=== PATIENT | male | born 1940 | race Caucasian/White ===

== ENCOUNTER 2017-09-07 13:32 | Emergency (ER) | payer MEDICARE ==
[~2017-09-07] VITALS: Ht 177.8 cm; Wt 122.0 kg
[~2017-09-07 13:32] MED LIST: ASP81CT PO; CPR250T PO; DOXA8TAB33 PO; FAMO20TA5 PO; LSRT50T PO; PRAS10TA6 PO; SIMV40TA4 PO
[2017-09-07 13:42] VITALS: BP_SYST 103; BP_SYST 76; BP_SYST 85; BP_DIAS 29; BP_DIAS 44; BP_DIAS 46
[2017-09-07] MEDS ORDERED: NS IV 1000 ML 1,000 ML IV ONE ×3 (13:42→15:23)
[2017-09-07] MEDS ORDERED: ASPIRIN 81 MG CHEW (CHILDREN'S ASA) PO ONE (13:45)
[2017-09-07 14:34] LABS: BASOPHILS % (AUTO) 0 % (0-10); EOSINOPHILS % (AUTO) 0 % (0-10); HEMATOCRIT 35 % (40-54); HEMOGLOBIN 11.8 G/DL (13.3-17.7); LYMPHOCYTES % (AUTO) 29 % (12-44); MEAN CORPUSCULAR HEMOGLOBIN 30 PG (25-34); MEAN CORPUSCULAR HGB CONC 34 G/DL (32-36); MEAN CORPUSCULAR VOLUME 88 FL (80-99); MEAN PLATELET VOLUME 9.4 FL (7.4-10.4); MONOCYTES # (AUTO) 0.6 X 10^3 (0.0-1.0); MONOCYTES % (AUTO) 6 % (0-12); NEUTROPHILS # (AUTO) 6.5 X 10^3 (1.8-7.8); NEUTROPHILS % (AUTO) 64 % (42-75); PLATELET COUNT 172 10^3/uL (130-400); RED BLOOD COUNT 3.96 10^6/uL (4.35-5.85); RED CELL DISTRIBUTION WIDTH 14.1 % (10.0-14.5); WHITE BLOOD COUNT 10.1 10^3/uL (4.3-11.0)
--- NOTE | 2017-09-07 14:39 | Diagnostic Imaging Report ---
INDICATION: Dizziness and near syncope. TIME OF EXAM: 02:30 p.m. No prior studies are available for comparison. FINDINGS: The heart size is normal. Cardiac pacemaker remains in place. The lungs are clear. No infiltrate or failure is detected. No effusion or pneumothorax is seen. IMPRESSION: No acute cardiopulmonary process is detected. Dictated by: Dictated on workstation # [id number]
[2017-09-07 14:48] LABS: INR 1.2 (0.8-1.4); PROTHROMBIN TIME PATIENT 15.2 SEC (12.2-14.7)
[2017-09-07 14:56] LABS: ALANINE AMINOTRANSFERASE 15 U/L (0-55); ALBUMIN 3.2 GM/DL (3.2-4.5); ALKALINE PHOSPHATASE 34 U/L (40-136); BILIRUBIN,TOTAL 0.6 MG/DL (0.1-1.0); BUN/CREATININE RATIO 19; CALCIUM 8.3 MG/DL (8.5-10.1); CARBON DIOXIDE 26 MMOL/L (21-32); CHLORIDE 108 MMOL/L (98-107); CREATININE SERUM 1.99 MG/DL (0.60-1.30); GFR ESTIMATED 33; GLUCOSE 133 MG/DL (70-105); POTASSIUM 3.6 MMOL/L (3.6-5.0); SODIUM 139 MMOL/L (135-145); TOTAL PROTEIN 5.4 GM/DL (6.4-8.2)
[2017-09-07 15:02] LABS: MYOGLOBIN SERUM 210.2 NG/ML (10.0-92.0)
--- NOTE | 2017-09-07 16:15 | Consultation-Cardiology ---
HPI-Cardiology Cardiology Consultation: Date of Consultation 09/07/17 Date of Admission Attending Physician Admitting Physician Tejinder Covarrubias DO Consulting Physician Denisse STILES MD HPI: Time Seen by Provider: 16:30 Chief Complaint: Near syncope This is a 76-year-old gentleman who has history of CAD with numerous PCI and stents in the past, permanent pacemaker, hypertension, lower extremity swelling , possible polymyalgia rheumatica on steroids. He presented from Dr. Covarrubias' s office where he was hypotensive and experienced near syncope. His systolic blood pressure was 80 mmHg. He was transferred to [facility] ER and was given IV fluids. Orthostatic hypotension was noted with drop of blood pressure from 104 systolic to 70 systolic on standing up. The patient denied any chest pain, shortness of breath, palpitations, syncope. Review of Systems-Cardiology Review of Systems Constitutional: No As described under HPI, No no symptoms reported, No chills, No fever; lightheadedness; No malaise, No tiredness, No weight loss, No weight gain, No other Eyes: No As described under HPI, No no symptoms reported, No blindness, No blurred vision, No contact lenses, No drainage, No decreased acuity, No foreign body sensation, No glasses, No inflammation, No pain, No photophobia, No previous injury, No shadows, No tunnel vision, No other, No vision change Ears/Nose/Throat: No As described under HPI, No no symptoms reported, No chronic hearing loss, No epistaxis, No ear discharge, No ear pain, No loose teeth, No mouth pain, No mouth swelling, No nasal drainage, No nose pain, No recent hearing loss, No throat pain, No throat swelling, No ulcerations, No other Respiratory: No no symptoms reported, No As described under HPI, No cough, No orthopnea, No shortness of breath, No SOB with excertion, No SOB at rest, No stridor, No wheezing, No other Cardiovascular: No no symptoms reported, No As described under HPI, No chest pain, No edema, No irregular heart rate, No lightheadedness, No palpitations; syncope; No other Gastrointestinal: No no symptoms reported, No As described under HPI, No abdomen distended, No abdominal pain, No blood streaked bowels, No constipation , No diarrhea, No difficulty swallowing, No nausea, No poor appetite, No poor fluid intake, No rectal bleeding, No vomiting, No other, No nausea/vomiting/ diarrhea, No stool coloration changes Genitourinary: No no symptoms reported, No As described under HPI, No burning, No dysuria, No discharge, No frequency, No flank pain, No hematuria, No incontinence, No pain, No urgency, No other, No urine frequency changes, No urine coloration changes Musculoskeletal: No no symptoms reported, No As describe under HPI, No back pain, No gout, No joint pain, No joint swelling, No muscle pain, No muscle stiffness, No neck pain, No other Skin: No no symptoms reported, No As described under HPI, No change in color, No change in hair/nails, No dryness, No lesions, No lumps, No rash, No other, No skin related problems, No ulcerations, No rash on exposed areas, No ulcerations on exposed areas Psychiatric/Neurological: No no symptoms reported, No As described under HPI, No anxiety, No depression, No emotional problems, No headache, No numbness, No pre-existing deficit, No seizure, No tingling, No tremors, No weakness, No other , No focal weakness, No syncope Hematologic: No no symptoms reported, No As described under HPI, No anemia, No blood clots, No easy bleeding, No easy bruising, No swollen glands, No other, No bleeding abnormalities [id number] Hx Patient Social History Alcohol Use: Denies Use Recreational Drug Use: No Smoking Status: Never a Smoker Recent Foreign Travel: No Recent Infectious Disease Expo: No Hospitalization with Isolation: Denies Past Medical History PMH As described under Assessment. Allergies and Home Medications Allergies Coded Allergies: Warfarin Sodium (Verified Allergy, Mild, RASH, 06/04/11) Home Medications Aspirin 81 Mg Chew, 81 MG PO DAILY, (Reported) Ciprofloxacin Hcl 250 Mg Tablet, 1 TAB PO BID Prescribed by: SHERI QUINN on 12/21/11 0727 Doxazosin Mesylate 8 Mg Tablet, 10 MG PO DAILY, (Reported) Famotidine 20 Mg Tablet, 20 MG PO DAILY, (Reported) Losartan Potassium 50 Mg Tab, 50 MG PO DAILY, (Reported) Prasugrel Hydrochloride 10 Mg Tablet, 10 MG PO DAILY, (Reported) Simvastatin 40 Mg Tablet, 40 MG PO DAILY, (Reported) Patient Home Medication List Home Medication List Reviewed: Yes Physical Exam-Cardiology Physical Exam Vital Signs/I&O 09/07/17 09/07/17 09/07/17 09/07/17 13:35 13:42 16:19 16:37 Temp 97.9 Pulse 78 65 60 76 85 65 100 72 Resp 17 17 B/P (MAP) 101/46 (64) 103/44 (63) 123/61 (81) 141/56 (111) 85/29 (47) 129/71 (90) 76/46 (56) 142/96 (111) Pulse Ox 98 98 Capillary Refill : Less Than 3 Seconds Constitutional: appears stated age, AAO x 3; No apparent distress; well- developed, well-nourished HEENT: PERRL; No normal ENT inspection, No TMs normal, No pharynx normal, No scleral icterus (R), No scleral icterus (L), No pale conjunctivae (R), No pale conjunctivae (L), No photophobia, No TM abnormal (R), No TM abnormal (L), No pharyngeal erythema, No tonsillar exudate, No other, No discharge, No EOMI; hearing is well preserved; No hard of hearing; oral hygience is good; No ulceration, No xanthelasmas are seen Neck: No non-tender, No full range of motion, No supple, No normal inspection, No carotid bruit, No limited range of motion, No lymphadenopathy (R), No lymphadenopathy (L), No tender lateral, No tender midline, No thyromegaly, No other; carotid pulses are 2 + bilaterally; No with good upstrokes Respiratory: No accessory muscle use, No respiratory distress, No chest tender , No chest expansion is symmetric; chest is bilaterally symmetric; No lungs clear to percussion; lungs clear to auscultation; No crackles, No rhonchi, No rales, No stridor, No wheezing, No pleural rub, No other Cardiovascular: regular rate-rhythm; No irregularly irregular, No extra beats, No parasternal heave is noted, No JVD, No edema, No bradycardia, No tachycardia , No point of maximal impulse, No cardiac thrills are palpable; S1 and S2; No gallop/S3, No gallop/S4, No diastolic murmur, No systolic murmur, No friction rub, No click, No other Gastrointestinal: No tender, No soft, No round, No distended, No pulsatile mass , No organomegaly, No guarding, No rebound, No tenderness, No hernia, No mass, No audible bowel sounds, No abnormal bowel sounds, No abdominal bruits, No spleenomegaly, No other Rectal: deferred Extremities: No normal range of motion, No non-tender, No normal inspection, No pedal edema, No calf tenderness, No normal capillary refill, No pelvis stable , No calf tenderness, No inflammation, No pedal edema, No slow capillary refill , No swelling, No other, No abrasion, No clubbing, No cyanosis, No ecchymosis, No laceration, No no lower extremity edema bilateral, No significant edema, No tenderness, No wound Neurologic/Psychiatric: no motor/sensory deficits, alert, normal mood/affect, oriented x 3, power is 5/5 both on sides Skin: No normal color, No warm/dry, No cyanosis, No cool, No diaphoresis, No damp, No ecchymosis, No jaundice, No mottled, No pallor, No rash, No tattoos/ piercings, No ulcerations, No rash on exposed areas, No ulcerations on exposed areas, No other Data Review Labs Laboratory Tests 09/07/17 14:27: White Blood Count 10.1, Red Blood Count 3.96L, Hemoglobin 11.8L, Hematocrit 35L , Mean Corpuscular Volume 88, Mean Corpuscular Hemoglobin 30, Mean Corpuscular Hemoglobin Concent 34, Red Cell Distribution Width 14.1, Platelet Count 172, Mean Platelet Volume 9.4, Neutrophils (%) (Auto) 64, Lymphocytes (%) (Auto) 29, Monocytes (%) (Auto) 6, Eosinophils (%) (Auto) 0, Basophils (%) (Auto) 0, Neutrophils # (Auto) 6.5, Lymphocytes # (Auto) 3.0, Monocytes # (Auto) 0.6, Eosinophils # (Auto) 0.0, Basophils # (Auto) 0.0, Prothrombin Time 15.2H, INR Comment 1.2, Activated Partial Thromboplast Time 30, Sodium Level 139, Potassium Level 3.6, Chloride Level 108H, Carbon Dioxide Level 26, Anion Gap 5, Blood Urea Nitrogen 37H, Creatinine 1.99H, Estimat Glomerular Filtration Rate 33 , BUN/Creatinine Ratio 19, Glucose Level 133H, Calcium Level 8.3L, Magnesium Level 2.0, Total Bilirubin 0.6, Aspartate Amino Transf (AST/SGOT) 15, Alanine Aminotransferase (ALT/SGPT) 15, Alkaline Phosphatase 34L, Total Creatine Kinase 61, Myoglobin 210.2H, Troponin I < 0.30, Total Protein 5.4L, Albumin 3.2 ECG Impression ECG Comment Atrial paced ventricular sensed rhythm. Left bundle branch block. A/P-Cardiology Assessment/Admission Diagnosis Orthostatic hypotension, Near syncope, CAD, Permanent pacemaker, Left bundle branch block, Acute renal failure, Hyperlipidemia, Hypertension. Plan Orthostatic hypotension, likely due to dehydration and diuretics. Discontinue diuretics. Aggressive IV fluids. After IV fluids, his standing blood pressure was systolic 146 mmHg. 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 His appointment is tomorrow. Near syncope, due to orthostatic hypotension. IV fluids given. CAD, negative troponin. No chest pain. Continue aspirin, Prasugrel, statin, losartan. No active issues. Permanent pacemaker, atrial paced ventricular sensed rhythm. Left bundle branch block, follow clinically. Acute renal failure, likely prerenal due to dehydration and diuretics. Discontinue diuretics. IV fluids. Will likely require follow-up labs. Hyperlipidemia, continue statin therapy. Hypertension. Continue losartan. Discontinue chlorthalidone. Thank you for your consultation. Please call me if you have any questions. Deandre Stiles MD, FACP, FACC, FSCAI, FHRS, CCDS Interventional Cardiology Cardiac Electrophysiology Vascular Medicine and Endovascular Interventions Denisse STILES MD September 07, 2017 16:15 VIBHA BENITEZ MD September 07, 2017 16:34
[2017-09-07 16:19] VITALS: BP_SYST 123; BP_SYST 129; BP_SYST 142; BP_DIAS 61; BP_DIAS 71; BP_DIAS 96
[2017-09-07 16:37] VITALS: BP 141/56
--- NOTE | 2017-09-07 16:38 | ED Cardiac General ---
History of Present Illness General Chief Complaint: Dizziness/Syncope Stated Complaint: HTN Nursing Triage Note: PT CO OF DIZZINESS, AND NEAR SYNCOPE, PT B/P HYPOTENSIVE AT DR PANIAGUA OFFICE 80/40 PT AMBULATED TO ED 7 CO OF DIZZINESS,WEAKNESS AND NEAR SYNCOPE Source: patient, old records, other (Dr. Robbins) Exam Limitations: no limitations History of Present Illness Date Seen by Provider: September 07, 2017 Time Seen by Provider: 13:33 Initial Comments This ambulatory 76 year old gentleman presented to the emergency room via private vehicle with lightheadedness, dyspnea with exertion, fatigue and hypotension. He presented to Dr. Robbins's office today and was found to have a blood pressure of 80/50. He had been taking a prolonged course of steroids over the past 3-4 weeks for suspected PMR. He thought perhaps the steroids were causing these symptoms and therefore abruptly stopped the prednisone 3 days ago. Symptoms have worsened since then. He has a history of coronary artery disease but denies any chest pain during this course of illness. He has a pacemaker and stents. His cardiology care is provided by the [facility]. He has an appointment with them tomorrow. His symptoms are worse with exertion and an upright position. Patient states his last heart catheter was performed about a year ago. He had angioplasty and stenting performed at that time. Allergies and Home Medications Allergies Coded Allergies: Warfarin Sodium (Verified Allergy, Mild, RASH, 06/04/11) Home Medications Aspirin 81 Mg Chew, 81 MG PO DAILY, (Reported) Ciprofloxacin Hcl 250 Mg Tablet, 1 TAB PO BID Prescribed by: SHERI QUINN on 12/21/11 0727 Doxazosin Mesylate 8 Mg Tablet, 10 MG PO DAILY, (Reported) Famotidine 20 Mg Tablet, 20 MG PO DAILY, (Reported) Losartan Potassium 50 Mg Tab, 50 MG PO DAILY, (Reported) Prasugrel Hydrochloride 10 Mg Tablet, 10 MG PO DAILY, (Reported) Simvastatin 40 Mg Tablet, 40 MG PO DAILY, (Reported) Patient Home Medication List Home Medication List Reviewed: Yes Review of Systems Constitutional: see HPI EENTM: No Symptoms Reported Respiratory: See HPI Cardiovascular: See HPI Gastrointestinal: No Symptoms Reported Genitourinary: No Symptoms Reported Musculoskeletal: see HPI Skin: no symptoms reported Psychiatric/Neurological: No Symptoms Reported Endocrine: No Symptoms Reported Hematologic/Lymphatic: No Symptoms Reported Past Fdriwty-Podgsn-Pebszq Hx Patient Social History Alcohol Use: Denies Use Recreational Drug Use: No Smoking Status: Never a Smoker Recent Foreign Travel: No Contact w/Someone Who Travel: No Recent Infectious Disease Expo: No Recent Hopitalizations: No Physical Abuse: No Sexual Abuse: No Past Medical History Surgeries: Yes Abdominal, Coronary Stent, Orthopedic, Pacemaker Respiratory: No 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) Coronary Artery Disease, Hypertension Neurological: No Genitourinary: Yes Benign Prostatic Hyperpl Gastrointestinal: No Musculoskeletal: Yes Arthritis Endocrine: No HEENT: No Cancer: No Psychosocial: No Nursing Suicide Risk Score: 0 Integumentary: No Physical Exam Vital Signs Vital Signs - First Documented 09/07/17 13:35 Temp 97.9 Pulse 78 Resp 17 B/P (MAP) 101/46 (64) Pulse Ox 98 Capillary Refill : Less Than 3 Seconds General Appearance: No Apparent Distress, WD/WN, Obese HEENT: PERRL/EOMI, Normal ENT Inspection Neck: Normal Inspection Respiratory: Lungs Clear, Normal Breath Sounds, No Accessory Muscle Use, No Respiratory Distress Cardiovascular: No Edema, No Murmur, Irregularly Irregular Gastrointestinal: Normal Bowel Sounds Extremity: Normal Inspection, No Pedal Edema Neurologic/Psychiatric: Alert, Oriented x3, No Motor/Sensory Deficits, Normal Mood/Affect, waterproofer helper II-XII Norm as Tested Skin: Normal Color, Warm/Dry Progress/Results/Core Measures Lab Results Laboratory Tests Test 09/07/17 14:27 Range/Units White Blood Count 10.1 4.3-11.0 10^3/uL Red Blood Count 3.96 L 4.35-5.85 10^6/uL Hemoglobin 11.8 L 13.3-17.7 G/DL Hematocrit 35 L 40-54 % Mean Corpuscular Volume 88 80-99 FL Mean Corpuscular Hemoglobin 30 25-34 PG Mean Corpuscular Hemoglobin Concent 34 32-36 G/DL Red Cell Distribution Width 14.1 10.0-14.5 % Platelet Count 172 130-400 10^3/uL Mean Platelet Volume 9.4 7.4-10.4 FL Neutrophils (%) (Auto) 64 42-75 % Lymphocytes (%) (Auto) 29 12-44 % Monocytes (%) (Auto) 6 0-12 % Eosinophils (%) (Auto) 0 0-10 % Basophils (%) (Auto) 0 0-10 % Neutrophils # (Auto) 6.5 1.8-7.8 X 10^3 Lymphocytes # (Auto) 3.0 1.0-4.0 X 10^3 Monocytes # (Auto) 0.6 0.0-1.0 X 10^3 Eosinophils # (Auto) 0.0 0.0-0.3 10^3/uL Basophils # (Auto) 0.0 0.0-0.1 10^3/uL Prothrombin Time 15.2 H 12.2-14.7 SEC INR Comment 1.2 0.8-1.4 Activated Partial Thromboplast Time 30 24-35 SEC Sodium Level 139 135-145 MMOL/L Potassium Level 3.6 3.6-5.0 MMOL/L Chloride Level 108 H 98-107 MMOL/L Carbon Dioxide Level 26 21-32 MMOL/L Anion Gap 5 5-14 MMOL/L Blood Urea Nitrogen 37 H 7-18 MG/DL Creatinine 1.99 H 0.60-1.30 MG/DL Estimat Glomerular Filtration Rate 33 BUN/Creatinine Ratio 19 Glucose Level 133 H 70-105 MG/DL Calcium Level 8.3 L 8.5-10.1 MG/DL Magnesium Level 2.0 1.8-2.4 MG/DL Total Bilirubin 0.6 0.1-1.0 MG/DL Aspartate Amino Transf (AST/SGOT) 15 5-34 U/L Alanine Aminotransferase (ALT/SGPT) 15 0-55 U/L Alkaline Phosphatase 34 L 40-136 U/L Total Creatine Kinase 61 30-200 U/L Myoglobin 210.2 H 10.0-92.0 NG/ML Troponin I < 0.30 <0.30 NG/ML Total Protein 5.4 L 6.4-8.2 GM/DL Albumin 3.2 3.2-4.5 GM/DL My Orders Orders - VIBHA BENITEZ MD Cbc With Automated Diff (09/07/17 13:42) Magnesium (09/07/17 13:42) Chest 1 View, Ap/Pa Only (09/07/17 13:42) Ekg Tracing (09/07/17 13:42) Cardiac Profile 1 (09/07/17 13:42) Comprehensive Metabolic Panel (09/07/17 13:42) Myoglobin Serum (09/07/17 13:42) Protime With Inr (09/07/17 13:42) Partial Thromboplastin Time (09/07/17 13:42) O2 (09/07/17 13:42) Monitor-Rhythm Ecg Trace Only (09/07/17 13:42) Aspirin Chewable Tablet (Baby Aspirin Ch (09/07/17 13:45) Saline Lock/Iv-Start (09/07/17 13:42) Saline Lock/Iv-Start (09/07/17 13:42) Ns Iv 1000 Ml (Sodium Chloride 0.9%) (09/07/17 13:42) Ns Iv 1000 Ml (Sodium Chloride 0.9%) (09/07/17 13:49) Creatine Kinase (09/07/17:18) Saline Lock/Iv-Start (09/07/17 15:23) Ns Iv 1000 Ml (Sodium Chloride 0.9%) (09/07/17 15:23) Consult Physician (09/07/17 16:34) Medications Given in ED Vital Signs/I&O 09/07/17 09/07/17 09/07/17 09/07/17 13:35 13:42 16:19 16:37 Temp 97.9 Pulse 78 65 60 76 85 65 100 72 Resp 17 17 B/P (MAP) 101/46 (64) 103/44 (63) 123/61 (81) 141/56 (111) 85/29 (47) 129/71 (90) 76/46 (56) 142/96 (111) Pulse Ox 98 98 09/08/17 00:00 Intake Total 2000 ml Balance 2000 ml Blood Pressure Mean: 111 Progress Note : Progress Note Patient was found to be significantly orthostatic. 2 L of IV fluids were infused. Lightheadedness resolved as did the orthostatic hypotension. Patient had an elevated creatinine but workup was otherwise unremarkable. Patient was dismissed to follow-up with his cardiology team tomorrow. Follow-up with his PCP for review of renal function and blood pressure was also recommended. Dr. Stiles Came to the ER to assess the patient personally. Initial ECG Impression Date: September 07, 2017 Initial ECG Impression Time: 13:39 Initial ECG Rate: 79 Comment Atrial paced rhythm with no acute ST changes to suggest ischemia. Multiple PVCs. Diagonstic Imaging: Xray Plain Films/CT/US/NM/MRI: chest Comments Chest x-ray viewed by me and report reviewed. See report below: NAME: ANTONETTE GUILLEN [facility] REC#: [id number] PT STATUS: REG ER : 1940 PHYSICIAN: VIBHA BENITEZ MD ADMIT DATE: 09/07/17/ER Signed Date of Exam: 09/07/17 CHEST 1 VIEW, AP/PA ONLY INDICATION: Dizziness and near syncope. TIME OF EXAM: 02:30 p.m. No prior studies are available for comparison. FINDINGS: The heart size is normal. Cardiac pacemaker remains in place. The lungs are clear. No infiltrate or failure is detected. No effusion or pneumothorax is seen. IMPRESSION: No acute cardiopulmonary process is detected. Dictated by: Dictated on workstation # [id number] Dict: 09/07/17 1435 Trans: 09/07/17 1448 Interpreted by: REMI ARDON MD Electronically signed by: REMI ARDON MD 09/07/17 1448 Departure Impression Primary Impression: Orthostatic hypotension Additional Impressions: Dyspnea on exertion Hypovolemia Coronary artery disease Qualified Codes: I25.10 - Atherosclerotic heart disease of [place] coronary artery without angina pectoris Acute renal insufficiency Disposition: 01 HOME, SELF-CARE Condition: Improved Departure-Patient Inst. Decision time for Depature: 16:30 Referrals: JENNIFER ROBBINS DO (PCP/Family) Primary Care Physician Patient Instructions: Orthostatic Hypotension (DC) Add. Discharge Instructions: Keep your appointment with your dye range operator cloth tomorrow. Discontinue chlorthalidone until you discuss further with your dye range operator cloth. Drink plenty of clear liquids. Return to care if symptoms are worsening. Follow-up with your primary care provider in 1 to 2 weeks to have your renal function and blood pressure reevaluated. Bring these discharge papers to your appointment tomorrow. All discharge instructions reviewed with patient and/or family. Voiced understanding. Copy Copies To 1: JENNIFER ROBBINS JOSHUA T MD September 07, 2017 16:38
--- OUTSIDE RECORDS SUMMARY | 2017-09-07 19:04 | XMS REPORT | Continuity of Care Document ---
Author Author [facility] Organization [facility] Address Unknown Phone Unavailable Allergies Active Description Code Type Severity Reaction Onset Reported/Identified Relationship to Patient Clinical Status Yes warfarin sodium [id number] Drug Allergy Mild RASH 06/04/2011 Yes No Known Allergies No Known Allergies Drug Allergy Unknown N/A 2015 Medications There is no data. Problems Date Dx Coded Attending Type Code Diagnosis Diagnosed By 11/06/2014 JENNIFER ROBBINS DO Ot 599.70 11/28/2014 JENNIFER ROBBINS DO Ot 599.70 02/03/2015 JENNIFER ROBBINS DO Ot 599.70 02/03/2015 JENNIFER ROBBINS DO Ot R31.9 Procedures There is no data. Results Test Result Range B-TYPE NATRIURETIC PEPTIDE - 04/30/16 18:10 B-TYPE NATRIURETIC PEPTIDE 125 pg/mL < 100 CBC W/DIFF - 04/30/16 18:10 EOSINOPHIL # 0.1 k/cumm 0.1-0.5 EOSINOPHIL % 2 % 2-4 GRANULOCYTE # 4.2 k/cumm 2.0-9.0 GRANULOCYTE % 54 % 50-75 LYMPHOCYTE # 2.8 k/cumm 1.0-4.0 LYMPHOCYTE % 36 % 20-30 MEAN CELL HGB 29.3 pg 27.0-33.0 MEAN CELL HGB CONCENTRATION 33.9 g/dL 32.0-37.0 MEAN CELL VOLUME 86.3 fl 80.0-100.0 MONOCYTE # 0.7 k/cumm 0.1-1.0 MONOCYTE % 9 % 4-6 RED BLOOD CELL 4.00 m/cumm 4.00-6.00 RED CELL DISTRIBUTION WIDTH 14.1 % 11.0-15.6 WHITE BLOOD CELL 7.8 k/cumm 5.0-10.0 HEMOGLOBIN 11.7 gm/dL 14.0-18.0 HEMATOCRIT 34.5 % 40.0-54.0 PLATELET COUNT 187 k/cumm 150-450 METABOLIC PANEL, COMPREHN - 04/30/16 18:10 POTASSIUM 3.9 mmol/L 3.5-5.3 EST GFR (MDRD) 59 mL/min > 59 ANION GAP 10 mmol/L 5-15 EST CrCl (CG) > 60 mL/min > 59 GLUCOSE 101 mg/dL 70-99 CALCIUM 8.8 mg/dL 8.5-10.1 BLOOD UREA NITROGEN 23 mg/dL 7-20 CREATININE 1.2 mg/dL 0.7-1.3 SODIUM 142 mmol/L 135-148 CHLORIDE 107 mmol/L 98-110 AST/SGOT 22 Units/L 10-37 ALT/SGPT 26 Units/L < 66 CARBON DIOXIDE 25 mmol/L 21-32 TOTAL PROTEIN 7.1 gm/dL 6.4-8.2 ALBUMIN 3.6 gm/dL 3.4-5.0 BILI TOTAL 0.6 mg/dL 0.0-1.0 ALKALINE PHOSPHATASE TOTAL 57 IU/L 45-117 TROPONIN I - 04/30/16 18:10 TROPONIN I 2.61 ng/mL < 0.07 D-DIMER QUANT - 05/01/16 00:04 D-DIMER QUANT 309 ng/mL 0-229 TROPONIN I - 05/01/16 00:04 TROPONIN I 2.38 ng/mL < 0.07 TROPONIN I - 05/01/16 07:19 TROPONIN I 2.34 ng/mL < 0.07 TROPONIN I - 05/02/16 11:55 TROPONIN I 2.07 ng/mL < 0.07 D-DIMER QUANT - 05/02/16 11:55 D-DIMER QUANT 265 ng/mL 0-229 CBC W/DIFF - 07/19/16 08:19 EOSINOPHIL # 0.1 k/cumm 0.1-0.5 EOSINOPHIL % 1 % 2-4 GRANULOCYTE # 3.3 k/cumm 2.0-9.0 GRANULOCYTE % 47 % 50-75 LYMPHOCYTE # 3.1 k/cumm 1.0-4.0 LYMPHOCYTE % 44 % 20-30 MEAN CELL HGB 29.5 pg 27.0-33.0 MEAN CELL HGB CONCENTRATION 34.5 g/dL 32.0-37.0 MEAN CELL VOLUME 85.5 fl 80.0-100.0 MONOCYTE # 0.5 k/cumm 0.1-1.0 MONOCYTE % 7 % 4-6 RED BLOOD CELL 3.93 m/cumm 4.00-6.00 RED CELL DISTRIBUTION WIDTH 13.3 % 11.0-15.6 WHITE BLOOD CELL 7.0 k/cumm 5.0-10.0 HEMOGLOBIN 11.6 gm/dL 14.0-18.0 HEMATOCRIT 33.6 % 40.0-54.0 PLATELET COUNT 176 k/cumm 150-450 PROTHROMBIN TIME WITH INR - 07/19/16 08:19 INTERNATIONAL NORMAL RATIO 1.0 0.9-1.1 PROTHROMBIN TIME 12.3 sec 10.0-12.9 METABOLIC PANEL, BASIC - 07/19/16 08:19 POTASSIUM 3.5 mmol/L 3.5-5.3 EST GFR (MDRD) 54 mL/min > 59 ANION GAP 7 mmol/L 5-15 EST CrCl (CG) > 60 mL/min > 59 GLUCOSE 108 mg/dL 70-99 CALCIUM 8.4 mg/dL 8.5-10.1 BLOOD UREA NITROGEN 24 mg/dL 7-20 CREATININE 1.3 mg/dL 0.7-1.3 SODIUM 141 mmol/L 135-148 CHLORIDE 106 mmol/L 98-110 CARBON DIOXIDE 28 mmol/L 21-32 LIPID PANEL - 07/19/16 08:19 CHOLESTEROL/HDL RATIO 4.7 < 5.0 LDL CHOLESTEROL 112 mg/dL < 100 VLDL CHOLESTEROL 20 mg/dL < 30 TRIGLYCERIDES 101 mg/dL < 150 CHOLESTEROL 168 mg/dL < 200 HDL CHOLESTEROL 36 mg/dL > 39 CBC - 07/20/16 04:41 MEAN CELL HGB 29.3 pg 27.0-33.0 MEAN CELL HGB CONCENTRATION 34.2 g/dL 32.0-37.0 MEAN CELL VOLUME 85.8 fl 80.0-100.0 RED BLOOD CELL 3.79 m/cumm 4.00-6.00 RED CELL DISTRIBUTION WIDTH 13.4 % 11.0-15.6 WHITE BLOOD CELL 6.1 k/cumm 5.0-10.0 HEMOGLOBIN 11.1 gm/dL 14.0-18.0 HEMATOCRIT 32.5 % 40.0-54.0 PLATELET COUNT 163 k/cumm 150-450 METABOLIC PANEL, BASIC - 07/20/16 04:41 POTASSIUM 3.8 mmol/L 3.5-5.3 EST GFR (MDRD) 54 mL/min > 59 ANION GAP 9 mmol/L 5-15 EST CrCl (CG) > 60 mL/min > 59 GLUCOSE 110 mg/dL 70-99 CALCIUM 9.0 mg/dL 8.5-10.1 BLOOD UREA NITROGEN 19 mg/dL 7-20 CREATININE 1.3 mg/dL 0.7-1.3 SODIUM 141 mmol/L 135-148 CHLORIDE 105 mmol/L 98-110 CARBON DIOXIDE 27 mmol/L 21-32 MAGNESIUM - 07/20/16 04:41 MAGNESIUM 1.9 mg/dL 1.8-2.4 HEPATIC FUNCTION PANEL - 07/20/16 04:41 BILI UNCONJUGATED 0.3 mg/dL 0.0-0.7 AST/SGOT 23 Units/L 10-37 ALT/SGPT 20 Units/L < 66 TOTAL PROTEIN 6.2 gm/dL 6.4-8.2 ALBUMIN 3.2 gm/dL 3.4-5.0 BILI TOTAL 0.4 mg/dL 0.0-1.0 ALKALINE PHOSPHATASE TOTAL 45 IU/L 45-117 BILI CONJUGATED 0.1 mg/dL 0.0-0.3 CBC W/DIFF - 08/09/16 09:15 EOSINOPHIL # 0.1 k/cumm 0.1-0.5 EOSINOPHIL % 1 % 2-4 GRANULOCYTE # 3.9 k/cumm 2.0-9.0 GRANULOCYTE % 54 % 50-75 LYMPHOCYTE # 2.8 k/cumm 1.0-4.0 LYMPHOCYTE % 38 % 20-30 MEAN CELL HGB 29.3 pg 27.0-33.0 MEAN CELL HGB CONCENTRATION 34.3 g/dL 32.0-37.0 MEAN CELL VOLUME 85.3 fl 80.0-100.0 MONOCYTE # 0.5 k/cumm 0.1-1.0 MONOCYTE % 7 % 4-6 RED BLOOD CELL 3.89 m/cumm 4.00-6.00 RED CELL DISTRIBUTION WIDTH 13.5 % 11.0-15.6 WHITE BLOOD CELL 7.3 k/cumm 5.0-10.0 HEMOGLOBIN 11.4 gm/dL 14.0-18.0 HEMATOCRIT 33.2 % 40.0-54.0 PLATELET COUNT 181 k/cumm 150-450 PROTHROMBIN TIME WITH INR - 08/09/16 09:15 INTERNATIONAL NORMAL RATIO 1.0 0.9-1.1 PROTHROMBIN TIME 12.2 sec 10.0-12.9 METABOLIC PANEL, BASIC - 08/09/16 09:15 POTASSIUM 3.5 mmol/L 3.5-5.3 EST GFR (MDRD) 49 mL/min > 59 ANION GAP 10 mmol/L 5-15 GLUCOSE 113 mg/dL 70-99 CALCIUM 9.0 mg/dL 8.5-10.1 BLOOD UREA NITROGEN 26 mg/dL 7-20 CREATININE 1.4 mg/dL 0.7-1.3 SODIUM 142 mmol/L 135-148 CHLORIDE 105 mmol/L 98-110 CARBON DIOXIDE 27 mmol/L 21-32 MAGNESIUM - 08/09/16 09:15 MAGNESIUM 1.8 mg/dL 1.8-2.4 Complete blood count (CBC) with automated white blood cell (WBC) differential - 09/07/17 14:27 Blood leukocytes automated count (number/volume) 10.1 10*3/uL 4.3-11.0 Blood erythrocytes automated count (number/volume) 3.96 10*6/uL 4.35-5.85 Venous blood hemoglobin measurement (mass/volume) 11.8 g/dL 13.3-17.7 Blood hematocrit (volume fraction) 35 % 40-54 Automated erythrocyte mean corpuscular volume 88 [foz_us] 80-99 Automated erythrocyte mean corpuscular hemoglobin (mass per erythrocyte) 30 pg 25-34 Automated erythrocyte mean corpuscular hemoglobin concentration measurement ( mass/volume) 34 g/dL 32-36 Automated erythrocyte distribution width ratio 14.1 % 10.0-14.5 Automated blood platelet count (count/volume) 172 10*3/uL 130-400 Automated blood platelet mean volume measurement 9.4 [foz_us] 7.4-10.4 Automated blood neutrophils/100 leukocytes 64 % 42-75 Automated blood lymphocytes/100 leukocytes 29 % 12-44 Blood monocytes/100 leukocytes 6 % 0-12 Automated blood eosinophils/100 leukocytes 0 % 0-10 Automated blood basophils/100 leukocytes 0 % 0-10 Blood neutrophils automated count (number/volume) 6.5 10*3 1.8-7.8 Blood lymphocytes automated count (number/volume) 3.0 10*3 1.0-4.0 Blood monocytes automated count (number/volume) 0.6 10*3 0.0-1.0 Automated eosinophil count 0.0 10*3/uL 0.0-0.3 Automated blood basophil count (count/volume) 0.0 10*3/uL 0.0-0.1 PT panel in platelet poor plasma by coagulation assay - 09/07/17 14:27 Prothrombin time (PT) in platelet poor plasma by coagulation assay 15.2 s 12.2-14.7 INR in platelet poor plasma or blood by coagulation assay 1.2 0.8-1.4 Activated partial thromboplastin time (aPTT) in platelet poor plasma bycoagulation assay - 09/07/17 14:27 Activated partial thromboplastin time (aPTT) in platelet poor plasma bycoagulation assay 30 s 24-35 Comprehensive metabolic panel - 09/07/17 14:27 Serum or plasma sodium measurement (moles/volume) 139 mmol/L 135-145 Serum or plasma potassium measurement (moles/volume) 3.6 mmol/L 3.6-5.0 Serum or plasma chloride measurement (moles/volume) 108 mmol/L 98-107 Carbon dioxide 26 mmol/L 21-32 Serum or plasma anion gap determination (moles/volume) 5 mmol/L 5-14 Serum or plasma urea nitrogen measurement (mass/volume) 37 mg/dL 7-18 Serum or plasma creatinine measurement (mass/volume) 1.99 mg/dL 0.60-1.30 Serum or plasma urea nitrogen/creatinine mass ratio 19 NRG Serum or plasma creatinine measurement with calculation of estimated glomerular filtration rate 33 NRG Serum or plasma glucose measurement (mass/volume) 133 mg/dL 70-105 Serum or plasma calcium measurement (mass/volume) 8.3 mg/dL 8.5-10.1 Serum or plasma total bilirubin measurement (mass/volume) 0.6 mg/dL 0.1-1.0 Serum or plasma alkaline phosphatase measurement (enzymatic activity/volume) 34 U/L 40-136 Serum or plasma aspartate aminotransferase measurement (enzymatic activity/ volume) 15 U/L 5-34 Serum or plasma alanine aminotransferase measurement (enzymatic activity/volume ) 15 U/L 0-55 Serum or plasma protein measurement (mass/volume) 5.4 g/dL 6.4-8.2 Serum or plasma albumin measurement (mass/volume) 3.2 g/dL 3.2-4.5 Magnesium - 09/07/17 14:27 Magnesium 2.0 mg/dL 1.8-2.4 Serum or plasma troponin i.cardiac measurement (mass/volume) - 09/07/17 14:27 Serum or plasma troponin i.cardiac measurement (mass/volume) < ng/ mL <0.30 Myoglobin, serum - 09/07/17 14:27 Myoglobin, serum 210.2 ng/mL 10.0-92.0 Serum or plasma creatine kinase measurement (enzymatic activity/volume) - 09/07 14:27 Serum or plasma creatine kinase measurement (enzymatic activity/volume) 61 U/L 30-200 Encounters ACCT No. Visit Date/Time Discharge Status Pt. Type Provider Facility Loc./Unit Complaint [id number] 09/07/2017 13:33:00 09/07/2017 16:37:00 DIS Emergency EMMANUEL VALENZUELA, VIBHA Rodriguez [facility] ER HTN [id number] 02/04/2015 00:10:00 02/04/2015 23:59:59 CLS Preadmit JENINFER ROBBINS DO [facility] LAB [id number] 11/05/2014 16:16:00 02/03/2015 00:01:00 DIS Outpatient JENNIFER ROBBINS DO [facility] LAB [id number] 10/23/2013 10:56:00 10/23/2013 23:59:59 CLS Outpatient [id number] 08/09/2016 08:39:00 08/09/2016 16:35:00 DIS [facility] [id number] 07/19/2016 06:45:00 07/20/2016 07:40:00 DIS [facility] [id number] 05/02/2016 12:45:00 05/02/2016 14:28:00 DIS Inpatient Justine VALENZUELA, Alexis Soares [facility] & ER E.T3
== END 2017-09-07 16:37 | disposition home or self-care (01) ==
LOC: EDUNIT# 13:32 → ER 13:33
DX: I95.1 Orthostatic hypotension (principal); I25.10 Atherosclerotic heart disease of native coronary artery without angina pectoris; I10 Essential (primary) hypertension; E78.5 Hyperlipidemia, unspecified; N17.9 Acute kidney failure, unspecified; Z79.52 Long term (current) use of systemic steroids; Z95.0 Presence of cardiac pacemaker; Z95.5 Presence of coronary angioplasty implant and graft; Z88.8 Allergy status to other drugs, medicaments and biological substances; Z79.82 Long term (current) use of aspirin
CPT/HCPCS: 36415; 71045; 80053; 82550; 83735; 83874; 84484; 85025; 85610; 85730; 93005; 93041; 96360; 96361

== ENCOUNTER 2017-10-04 12:30 | Inpatient (IN) | payer MEDICARE ==
[~2017-10-04] VITALS: Ht 177.8 cm; Wt 119.4 kg
--- NOTE | 2017-10-04 12:44 | ED Cardiac General ---
History of Present Illness General Stated Complaint: IRREG HEART RATE LOW Source: patient Exam Limitations: no limitations History of Present Illness Date Seen by Provider: October 04, 2017 Time Seen by Provider: 12:41 Initial Comments To ER with reports of low pulse. He's been feeling generally weak for about 2 weeks. He does have a pacemaker was placed about a year ago in [place] with the [facility] cardiology group. He follows with them for cardiology purposes. Hematologic Dr. Robbins's office today and was found to have a pulse 40s. Upon arrival to ER he is alert, ambulatory to room 5 denies shortness of breath and feels weak he states. His palpable radial pulse was 44 but his heart rate on the assistant baseball coach was read in the 70s. He was noted to have a bigeminal and sometimes trigeminal rhythm with a ventricular paced complex or 2 followed by a PVC. His blood pressure is 154/70. He denies chest pain or nausea. Timing/Duration: getting worse Severity: moderate Activities at Onset: none NTG SL CONCRETE FLOATER: No ASA po CONCRETE FLOATER: No Associated Systoms: No Chest Pain, No Cough Allergies and Home Medications Allergies Coded Allergies: warfarin sodium (Verified Allergy, Mild, RASH, 06/04/11) Home Medications Aspirin 81 Mg Chew, 81 MG PO DAILY, (Reported) Ciprofloxacin Hcl 250 Mg Tablet, 1 TAB PO BID Prescribed by: SHERI QUINN on 12/21/11 0727 Doxazosin Mesylate 8 Mg Tablet, 10 MG PO DAILY, (Reported) Famotidine 20 Mg Tablet, 20 MG PO DAILY, (Reported) Losartan Potassium 50 Mg Tab, 50 MG PO DAILY, (Reported) Prasugrel Hydrochloride 10 Mg Tablet, 10 MG PO DAILY, (Reported) Simvastatin 40 Mg Tablet, 40 MG PO DAILY, (Reported) Patient Home Medication List Home Medication List Reviewed: Yes Review of Systems Constitutional: see HPI EENTM: No Symptoms Reported Respiratory: No Symptoms Reported; Denies Shortness of Air Cardiovascular: See HPI; Denies Chest Pain, Denies Edema; Irregular Heart Rate ; Denies Lightheadedness Gastrointestinal: No Symptoms Reported Genitourinary: No Symptoms Reported Musculoskeletal: no symptoms reported Skin: no symptoms reported Psychiatric/Neurological: No Symptoms Reported Endocrine: No Symptoms Reported Hematologic/Lymphatic: No Symptoms Reported Past Aprhqxq-[id number]-Jskipq Hx Patient Social History Recent Hopitalizations: No Past Medical History Surgeries: Yes Abdominal, Coronary Stent, Orthopedic, Pacemaker Respiratory: No 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) Coronary Artery Disease, Hypertension Neurological: No Genitourinary: Yes Benign Prostatic Hyperpl Gastrointestinal: No Musculoskeletal: Yes Arthritis Endocrine: No HEENT: No Cancer: No Psychosocial: No Integumentary: No Physical Exam Vital Signs Vital Signs - First Documented 10/04/17 12:30 Temp 97.5 Pulse 80 Resp 18 B/P (MAP) 139/80 (99) Pulse Ox 97 Capillary Refill : General Appearance: No Apparent Distress, WD/WN HEENT: PERRL/EOMI, TMs Normal Neck: Full Range of Motion, Normal Inspection Respiratory: No Accessory Muscle Use, No Respiratory Distress Cardiovascular: Regular Rate, Rhythm, Normal Peripheral Pulses Gastrointestinal: Normal Bowel Sounds, Non Tender, Soft Extremity: Normal Capillary Refill, Normal Inspection Neurologic/Psychiatric: Alert, Oriented x3, No Motor/Sensory Deficits Skin: Normal Color, Warm/Dry Progress/Results/Core Measures Results/Orders Lab Results Laboratory Tests Test 10/04/17 12:45 Range/Units White Blood Count 9.3 4.3-11.0 10^3/uL Red Blood Count 4.26 L 4.35-5.85 10^6/uL Hemoglobin 12.8 L 13.3-17.7 G/DL Hematocrit 38 L 40-54 % Mean Corpuscular Volume 89 80-99 FL Mean Corpuscular Hemoglobin 30 25-34 PG Mean Corpuscular Hemoglobin Concent 34 32-36 G/DL Red Cell Distribution Width 13.9 10.0-14.5 % Platelet Count 198 130-400 10^3/uL Mean Platelet Volume 9.3 7.4-10.4 FL Neutrophils (%) (Auto) 53 42-75 % Lymphocytes (%) (Auto) 39 12-44 % Monocytes (%) (Auto) 8 0-12 % Eosinophils (%) (Auto) 0 0-10 % Basophils (%) (Auto) 0 0-10 % Neutrophils # (Auto) 4.9 1.8-7.8 X 10^3 Lymphocytes # (Auto) 3.7 1.0-4.0 X 10^3 Monocytes # (Auto) 0.7 0.0-1.0 X 10^3 Eosinophils # (Auto) 0.0 0.0-0.3 10^3/uL Basophils # (Auto) 0.0 0.0-0.1 10^3/uL Prothrombin Time 14.2 12.2-14.7 SEC INR Comment 1.1 0.8-1.4 Activated Partial Thromboplast Time 32 24-35 SEC Sodium Level 142 135-145 MMOL/L Potassium Level 4.3 3.6-5.0 MMOL/L Chloride Level 111 H 98-107 MMOL/L Carbon Dioxide Level 24 21-32 MMOL/L Anion Gap 7 5-14 MMOL/L Blood Urea Nitrogen 23 H 7-18 MG/DL Creatinine 1.28 0.60-1.30 MG/DL Estimat Glomerular Filtration Rate 54 BUN/Creatinine Ratio 18 Glucose Level 92 70-105 MG/DL Calcium Level 8.9 8.5-10.1 MG/DL Magnesium Level 2.2 1.8-2.4 MG/DL Total Bilirubin 0.9 0.1-1.0 MG/DL Aspartate Amino Transf (AST/SGOT) 16 5-34 U/L Alanine Aminotransferase (ALT/SGPT) 18 0-55 U/L Alkaline Phosphatase 39 L 40-136 U/L Myoglobin 69.7 10.0-92.0 NG/ML Troponin I < 0.30 <0.30 NG/ML B-Type Natriuretic Peptide 348.2 H <100.0 PG/ML Total Protein 6.1 L 6.4-8.2 GM/DL Albumin 3.6 3.2-4.5 GM/DL My Orders Orders - LAURA SAAVEDRA RELAY RECORD CLERK Cbc With Automated Diff (10/04/17 12:39) Magnesium (10/04/17 12:39) Chest 1 View, Ap/Pa Only (10/04/17 12:39) Ekg Tracing (10/04/17 12:39) Cardiac Profile 1 (10/04/17 12:39) Comprehensive Metabolic Panel (10/04/17 12:39) Myoglobin Serum (10/04/17 12:39) Protime With Inr (10/04/17 12:39) Partial Thromboplastin Time (10/04/17 12:39) O2 (10/04/17 12:39) Monitor-Rhythm Ecg Trace Only (10/04/17 12:39) Lipid Panel (10/05/17 06:00) Saline Lock/Iv-Start (10/04/17 12:39) BNP (10/04/17 12:39) Iohexol Injection (Omnipaque 350 Mg/Ml 1 (10/04/17 13:15) Ns (Ivpb) (Sodium Chloride 0.9%) (10/04/17 13:15) Vital Signs/I&O 10/04/17 12:30 Temp 97.5 Pulse 80 Resp 18 B/P (MAP) 139/80 (99) Pulse Ox 97 Departure Communication (Admissions) Time/Spoke to Admitting Phy: 13:[address] Robbins. We'll admit, consult Dr. Menjivar Time/Spoke to Consulting Phy: 13:[address] Menjivar. He agrees to consult. Recommends withholding any beta blockers at the patient is on any. Impression Primary Impression: Ventricular ectopy Additional Impression: Weakness Disposition: HOME, SELF-CARE Condition: Stable Admissions Decision to Admit Reason: Admit from ER (General) Decision to Admit/Date: October 04, 2017 Time/Decision to Admit Time: 13:54 Departure-Patient Inst. Referrals: JENNIFER ROBBINS DO (PCP/Family) Primary Care Physician LAURA SAAVEDRA APRN October 04, 2017 12:44
[2017-10-04 12:55] LABS: BASOPHILS % (AUTO) 0 % (0-10); EOSINOPHILS % (AUTO) 0 % (0-10); HEMATOCRIT 38 % (40-54); HEMOGLOBIN 12.8 G/DL (13.3-17.7); LYMPHOCYTES # (AUTO) 3.7 X 10^3 (1.0-4.0); LYMPHOCYTES % (AUTO) 39 % (12-44); MEAN CORPUSCULAR HEMOGLOBIN 30 PG (25-34); MEAN CORPUSCULAR HGB CONC 34 G/DL (32-36); MEAN CORPUSCULAR VOLUME 89 FL (80-99); MEAN PLATELET VOLUME 9.3 FL (7.4-10.4); MONOCYTES # (AUTO) 0.7 X 10^3 (0.0-1.0); MONOCYTES % (AUTO) 8 % (0-12); NEUTROPHILS # (AUTO) 4.9 X 10^3 (1.8-7.8); NEUTROPHILS % (AUTO) 53 % (42-75); PLATELET COUNT 198 10^3/uL (130-400); RED BLOOD COUNT 4.26 10^6/uL (4.35-5.85); RED CELL DISTRIBUTION WIDTH 13.9 % (10.0-14.5); WHITE BLOOD COUNT 9.3 10^3/uL (4.3-11.0)
[2017-10-04 13:05] LABS: INR 1.1 (0.8-1.4); PROTHROMBIN TIME PATIENT 14.2 SEC (12.2-14.7)
[2017-10-04 13:15] LABS: ALANINE AMINOTRANSFERASE 18 U/L (0-55); ALBUMIN 3.6 GM/DL (3.2-4.5); ALKALINE PHOSPHATASE 39 U/L (40-136); BILIRUBIN,TOTAL 0.9 MG/DL (0.1-1.0); BUN/CREATININE RATIO 18; CALCIUM 8.9 MG/DL (8.5-10.1); CARBON DIOXIDE 24 MMOL/L (21-32); CHLORIDE 111 MMOL/L (98-107); CREATININE SERUM 1.28 MG/DL (0.60-1.30); GFR ESTIMATED 54; GLUCOSE 92 MG/DL (70-105); MAGNESIUM 2.2 MG/DL (1.8-2.4); POTASSIUM 4.3 MMOL/L (3.6-5.0); SODIUM 142 MMOL/L (135-145); TOTAL PROTEIN 6.1 GM/DL (6.4-8.2)
[2017-10-04] MEDS ORDERED: NS 250 ML (IVPB) BAG IV ONE (13:15)
[2017-10-04] MEDS ORDERED: IOHEXOL 350 MG/ML 100 ML (OMNIPAQUE 350) VIAL IV ONE (13:15)
--- NOTE | 2017-10-04 13:16 | Diagnostic Imaging Report ---
INDICATION: Hypotension and irregularity EXAM: Portable chest at 12:58 PM FINDINGS: There is a dual-chamber pacemaker. Heart size and pulmonary vascularity are within normal limits. The lungs are clear. There are no effusions or pneumothoraces. IMPRESSION: No acute abnormalities are seen in the chest. Dictated by: Dictated on workstation # [id number]
[2017-10-04 13:25] LABS: MYOGLOBIN SERUM 69.7 NG/ML (10.0-92.0)
[2017-10-04] MEDS ORDERED: LOSA100T28 PO (14:28)
[2017-10-04] MEDS ORDERED: DOXA4TAB PO (14:28)
[2017-10-04] MEDS ORDERED: ATOR20TA66 PO (14:28)
[2017-10-04] MEDS ORDERED: MULT-974 PO (14:28)
[2017-10-04] MEDS ORDERED: CLOP75TA69 PO (14:28)
[2017-10-04] MEDS ORDERED: AVOD0.5CAP PO (14:28)
[2017-10-04] MEDS ORDERED: GLUC1CAP14 PO (14:28)
--- OUTSIDE RECORDS SUMMARY | 2017-10-04 14:28 | XMS REPORT | Continuity of Care Document ---
Author Author [facility] Organization [facility] Address Unknown Phone Unavailable Allergies Active Description Code Type Severity Reaction Onset Reported/Identified Relationship to Patient Clinical Status Yes warfarin sodium [id number] Drug Allergy Mild RASH 06/04/2011 Yes No Known Allergies No Known Allergies Drug Allergy Unknown N/A 2015 Medications There is no data. Problems Date Dx Coded Attending Type Code Diagnosis Diagnosed By 11/06/2014 JENNIFER ROBBINS DO Ot 599.70 11/28/2014 JENNIFER ROBBINS DO Ot 599.70 02/03/2015 JENNIFER ROBBINS DO Ot 599.70 02/03/2015 JENNIFER ROBBINS DO Ot R31.9 09/07/2017 VIBHA BENITEZ MD Ot E78.5 HYPERLIPIDEMIA, UNSPECIFIED 09/07/2017 VIBHA BENITEZ MD Ot I10 ESSENTIAL (PRIMARY) HYPERTENSION 09/07/2017 VIBHA BENITEZ MD, Ot I25.10 ATHSCL HEART DISEASE OF [place] CORONARY 09/07/2017 VIBHA BENITEZ MD Ot I95.1 ORTHOSTATIC HYPOTENSION 09/07/2017 VIBHA BENITEZ MD, Ot N17.9 ACUTE KIDNEY FAILURE, UNSPECIFIED 09/07/2017 VIBHA BENITEZ MD Ot Z79.52 PRODUCTION PACKAGER (CURRENT) USE OF SYSTEMIC STER 09/07/2017 VIBHA BENITEZ MD Ot Z79.82 DETENTION (CURRENT) USE OF ASPIRIN 09/07/2017 VIBHA BENITEZ MD, Ot Z88.8 ALLERGY STATUS TO OT DRUG/MEDS/BIOL SUB 09/07/2017 VIBHA BENITEZ MD Ot Z95.0 PRESENCE OF CARDIAC PACEMAKER 09/07/2017 VIBHA BENITEZ MD Ot Z95.5 PRESENCE OF CORONARY ANGIOPLASTY IMPLANT 09/09/2017 BRUEGGEMANN MD, VIBHA T Ot E78.5 HYPERLIPIDEMIA, UNSPECIFIED 09/09/2017 VIBHA BENITEZ MD Ot I10 ESSENTIAL (PRIMARY) HYPERTENSION 09/09/2017 VIBHA BENITEZ MD Ot I25.10 ATHSCL HEART DISEASE OF [place] CORONARY 09/09/2017 VIBHA BENITEZ MD Ot I44.7 LEFT BUNDLE-BRANCH BLOCK, UNSPECIFIED 09/09/2017 VIBHA BENITEZ MD Ot I95.1 ORTHOSTATIC HYPOTENSION 09/09/2017 VIBHA BENITEZ MD Ot N17.9 ACUTE KIDNEY FAILURE, UNSPECIFIED 09/09/2017 VIBHA BENITEZ MD Ot Z79.52 PRODUCTION PACKAGER (CURRENT) USE OF SYSTEMIC STER 09/09/2017 VIBHA BENITEZ MD Ot Z79.82 PRODUCTION PACKAGER (CURRENT) USE OF ASPIRIN 09/09/2017 VIBHA BENITEZ MD Ot Z88.8 ALLERGY STATUS TO OTH DRUG/MEDS/BIOL SUB 09/09/2017 VIBHA BENITEZ MD Ot Z95.0 PRESENCE OF CARDIAC PACEMAKER 09/09/2017 VIBHA BENITEZ MD Ot Z95.5 PRESENCE OF CORONARY ANGIOPLASTY IMPLANT 09/12/2017 VIBHA BENITEZ MD Ot E78.5 HYPERLIPIDEMIA, UNSPECIFIED 09/12/2017 VIBHA BENITEZ MD Ot I10 ESSENTIAL (PRIMARY) HYPERTENSION 09/12/2017 VIBHA BENITEZ MD Ot I25.10 ATHSCL HEART DISEASE OF [place] CORONARY 09/12/2017 VIBHA BENITEZ MD Ot I95.1 ORTHOSTATIC HYPOTENSION 09/12/2017 VIBHA BENITEZ MD Ot N17.9 ACUTE KIDNEY FAILURE, UNSPECIFIED 09/12/2017 VIBHA BENITEZ MD Ot Z79.52 PRODUCTION PACKAGER (CURRENT) USE OF SYSTEMIC STER 09/12/2017 VIBHA BENITEZ MD Ot Z79.82 DETENTION (CURRENT) USE OF ASPIRIN 09/12/2017 VIBHA BENITEZ MD Ot Z88.8 ALLERGY STATUS TO OTH DRUG/MEDS/BIOL SUB 09/12/2017 ROOPA BENITEZ MDUA T Ot Z95.0 PRESENCE OF CARDIAC PACEMAKER 09/12/2017 EMMANUEL VALENZUELA, VIBHA Rodriguez Ot Z95.5 PRESENCE OF CORONARY ANGIOPLASTY IMPLANT Procedures There is no data. Results Test [...] Status Pt. Type Provider Facility Loc./Unit Complaint [id number] 09/07/2017 13:33:00 09/07/2017 16:37:00 DIS Emergency EMMANUEL VALENZUELA, VIBHA [facility] ER HTN [id number] 02/04/2015 00:10:00 02/04/2015 23:59:59 CLS Preadmit JENNIFER ROBBINS DO [facility] LAB [id number] 11/05/2014 16:16:00 02/03/2015 00:01:00 DIS Outpatient JENNIFER ROBBINS DO [facility] LAB [id number] 10/23/2013 10:56:00 10/23/2013 23:59:59 CLS Outpatient [id number] 08/09/2016 08:39:00 08/09/2016 16:35:00 DIS Outpatient Kayleen VALENZUELA, [facility] ER E.CVLO [id number] 07/19/2016 06:45:00 07/20/2016 07:40:00 DIS Outpatient Kayleen VALENZUELA, [facility] ER E.CVLO [id number] 05/02/2016 12:45:00 05/02/2016 14:28:00 DIS Inpatient Justine VALENZUELA, Alexis Soares [facility] & ER E.T3
--- NOTE | 2017-10-04 14:34 | Consultation-Cardiology ---
HPI-Cardiology Cardiology Consultation: Date of Consultation 10/04/17 Time Seen by Provider: 14:40 Date of Admission 10-04-17 Attending Physician Tejinder Covarrubias DO Admitting Physician Tejinder Covarrubias DO Consulting Physician Jolene Menjivar MD HPI: Chief Complaint: Bigeminal PVC's Dizziness Mr. Rosas is a 76 year old male admitted through the ED via Dr. Covarrubias's office with c/o generalizes weakness, dizziness and near syncope. He reports approx 2 weeks ago he was seen in the ED with similar symptoms. He was given IVF, began to feel better and was discharged home since he had an appt with Dr. 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 He states he underwent stress test, echo, pacemaker check, carotid, abdominal scan and PFT's in [place]. He reports he was told everything was good except for the aortic valve was tight, but they will continue to monitor. He states he was feeling fine, but going in to the weekend the dizziness returned. He reports dizziness was continuous. He reports feeling nauseated. He states he felt as though he could pass out at times, but he did not. He reports increased fatigue. He denies any syncope or near syncope. He states his BP at home showed the "bottom number" to be low. He went to see Dr. Covarrubias today and was sent to the ED. He currently reports he is feeling better at this time. His spouse is at the bedside. Review of Systems-Cardiology Review of Systems Constitutional: No chills, No fever; lightheadedness, malaise, tiredness Eyes: No blurred vision, No vision change Ears/Nose/Throat: No epistaxis, No recent hearing loss, No ulcerations Respiratory: As described under HPI Cardiovascular: As described under HPI Gastrointestinal: No constipation, No diarrhea; nausea; No vomiting Genitourinary: No dysuria, No hematuria Musculoskeletal: no symptoms reported Skin: No rash, No ulcerations Psychiatric/Neurological: No anxiety, No depression, No seizure, No syncope Hematologic: No bleeding abnormalities VTM-[id number]-Lszxbk Hx Patient Social History Alcohol Use: Denies Use Recreational Drug Use: No Smoking Status: Never a Smoker Recent Foreign Travel: No Recent Infectious Disease Expo: No Hospitalization with Isolation: Denies Past Medical History PMH As described under Assessment. Allergies and Home Medications Allergies Coded Allergies: warfarin sodium (Verified Allergy, Mild, RASH, 10/04/17) Home Medications Aspirin 81 Mg Chew, 81 MG PO DAILY, (Reported) Atorvastatin Calcium 20 Mg Tablet, 20 MG PO HS, (Reported) Clopidogrel Bisulfate 75 Mg Tablet, 75 MG PO DAILY, (Reported) Doxazosin Mesylate 4 Mg Tablet, 4 MG PO HS, (Reported) Dutasteride 0.5 Mg Cap, 0.5 MG PO HS, (Reported) Gluc HCl/Csa/Khadar Hy/Hyalur AC 1 Each Capsule, 1 EACH PO BID, (Reported) Losartan Potassium 100 Mg Tablet, 100 MG PO DAILY, (Reported) Multivitamin 1 Each Tablet, 1 EACH PO DAILY, (Reported) Patient Home Medication List Home Medication List Reviewed: Yes Physical Exam-Cardiology Physical Exam Vital Signs/I&O 10/05/17 10/05/17 10/05/17 10/05/17 00:00 01:00 04:00 07:00 Temp 97.5 97.9 Pulse 66 81 59 88 Resp 16 19 B/P (MAP) 130/63 (85) 143/63 (89) Pulse Ox 99 95 O2 Delivery Room Air Room Air 10/05/17 00:00 Intake Total 270 ml Balance 270 ml Capillary Refill : Less Than 3 Seconds Constitutional: appears stated age, AAO x 3, well-developed, well-nourished HEENT: PERRL, hearing is well preserved, oral hygience is good Neck: No carotid bruit; carotid pulses are 2 + bilaterally Respiratory: No accessory muscle use, No respiratory distress; chest expansion is symmetric, chest is bilaterally symmetric, lungs clear to auscultation Cardiovascular: irregularly irregular; No JVD; S1 and S2, systolic murmur Gastrointestinal: No tender; soft, round Rectal: deferred Extremities: no lower extremity edema bilateral Neurologic/Psychiatric: grossly intact Skin: No rash, No ulcerations Data Review Labs Laboratory Tests 10/04/17 12:45: White Blood Count 9.3, Red Blood Count 4.26L, Hemoglobin 12.8L, Hematocrit 38L, Mean Corpuscular Volume 89, Mean Corpuscular Hemoglobin 30, Mean Corpuscular Hemoglobin Concent 34, Red Cell Distribution Width 13.9, Platelet Count 198, Mean Platelet Volume 9.3, Neutrophils (%) (Auto) 53, Lymphocytes (%) (Auto) 39, Monocytes (%) (Auto) 8, Eosinophils (%) (Auto) 0, Basophils (%) (Auto) 0, Neutrophils # (Auto) 4.9, Lymphocytes # (Auto) 3.7, Monocytes # (Auto) 0.7, Eosinophils # (Auto) 0.0, Basophils # (Auto) 0.0, Prothrombin Time 14.2, INR Comment 1.1, Activated Partial Thromboplast Time 32, Sodium Level 142, Potassium Level 4.3, Chloride Level 111H, Carbon Dioxide Level 24, Anion Gap 7, Blood Urea Nitrogen 23H, Creatinine 1.28, Estimat Glomerular Filtration Rate 54 , BUN/Creatinine Ratio 18, Glucose Level 92, Calcium Level 8.9, Magnesium Level 2.2, Total Bilirubin 0.9, Aspartate Amino Transf (AST/SGOT) 16, Alanine Aminotransferase (ALT/SGPT) 18, Alkaline Phosphatase 39L, Myoglobin 69.7, Troponin I < 0.30, B-Type Natriuretic Peptide 348.2H, Total Protein 6.1L, Albumin 3.6 10/05/17 05:28: White Blood Count 9.2, Red Blood Count 3.91L, Hemoglobin 11.6L, Hematocrit 35L, Mean Corpuscular Volume 89, Mean Corpuscular Hemoglobin 30, Mean Corpuscular Hemoglobin Concent 33, Red Cell Distribution Width 13.8, Platelet Count 181, Mean Platelet Volume 9.0, Sodium Level 142, Potassium Level 4.1, Chloride Level 110H, Carbon Dioxide Level 24, Anion Gap 8, Blood Urea Nitrogen 21H, Creatinine 1.21, Estimat Glomerular Filtration Rate 58, BUN/Creatinine Ratio 17, Glucose Level 100, Calcium Level 8.6, Magnesium Level 2.1, Triglycerides Level 81, Cholesterol Level 97, LDL Cholesterol Direct 55, VLDL Cholesterol 16, HDL Cholesterol 32L, Thyroid Stimulating Hormone (TSH) 1.68 10/05/17 07:24: Stool Occult Blood Immunoassay NEGATIVE Radiology NAME: ANTONETTE ROSAS [employer] REC#: [id number] PT STATUS: REG ER : 1940 PHYSICIAN: LAURA SAAVEDRA APRN ADMIT DATE: 10/04/17/ER Draft Date of Exam:10/04/17 CHEST 1 VIEW, AP/PA ONLY INDICATION: Hypotension and irregularity EXAM: Portable chest at 12:58 PM FINDINGS: There is a dual-chamber pacemaker. Heart size and pulmonary vascularity are within normal limits. The lungs are clear. There are no effusions or pneumothoraces. IMPRESSION: No acute abnormalities are seen in the chest. Dictated on workstation # [id number] Dict: 10/04/17 1314 Trans: 10/04/17 1316 [facility] [id number] Interpreted by: SHERI DIETZ MD Electronically signed by: ECG Impression ECG Comment AV pace with bigeminal PVC's A/P-Cardiology Assessment/Admission Diagnosis CAD - with balloon angioplasty to the mid-LAD, stent to the prox circ and balloon angioplasty to the RCA in July [address] Tang in [place], [place]. Exact details unknown - currently taking Plavix and ASA. PPM implanted in April 2016, details unknown - managed by Dr. Tang Bigeminal PVC's - seen on EKG of 10-04-17 Chronic LBBB HLP HTN - currently having episodes of hypotension BPH Clinical Quality Measures AMI/AHF: ASA po Prior to arrival: ATIF [place] October 04, 2017 14:34
[2017-10-04 15:05] VITALS: BP 166/74
--- NOTE | 2017-10-04 16:14 | Consultation-Cardiology ---
HPI-Cardiology Cardiology Consultation: Date of Consultation 10/04/17 Time Seen by Provider: 15:40 Date of Admission Attending Physician Tejinder Covarrubias DO Admitting Physician Tejinder Covarrubias DO Consulting Physician COCO SILVER MD, MA, FACP, FACC, [facility] HPI: Chief Complaint: Bigeminal PVC's Dizziness Mr. Rosas is a 76 year old male admitted through the ED via Dr. Covarrubias's office with c/o generalizes weakness, dizziness and near syncope. He reports approx 2 weeks ago he was seen in the ED with similar symptoms. He was given IVF, began to feel better and was discharged home since he had an appt with Dr. Tang (his regular carpenter/labor) in [place]. He states he underwent stress test, echo, pacemaker check, carotid, abdominal scan and PFT's in [place]. He reports he was told everything was good except for the aortic valve was tight, but they will continue to monitor. He states he was feeling fine, but going in to the weekend the dizziness returned. He reports dizziness was continuous. He reports feeling nauseated. He states he felt as though he could pass out at times, but he did not. He reports increased fatigue. He denies any syncope or near syncope. He states his BP at home showed the "bottom number" to be low. He went to see Dr. Covarrubias today and was sent to the ED. He currently reports he is feeling better at this time. His spouse is at the bedside. Review of Systems-Cardiology Review of Systems Constitutional: No chills, No fever; lightheadedness, malaise, tiredness Eyes: No blurred vision, No vision change Ears/Nose/Throat: No epistaxis, No recent hearing loss, No ulcerations Respiratory: As described under HPI Cardiovascular: As described under HPI Gastrointestinal: No constipation, No diarrhea; nausea; No vomiting Genitourinary: No dysuria, No hematuria Musculoskeletal: no symptoms reported Skin: No rash, No ulcerations Psychiatric/Neurological: No anxiety, No depression, No seizure, No syncope Hematologic: No bleeding abnormalities VQZ-Dtnrdx-Pcjoso Hx Patient Social History Alcohol Use: Denies Use Recreational Drug Use: No Smoking Status: Never a Smoker Recent Foreign Travel: No Recent Infectious Disease Expo: No Hospitalization with Isolation: Denies Past Medical History PMH As described under Assessment. Family Medical History Family History: Colon cancer 19 FATHER (unknown cancer ) 19 MOTHER (unknown cancer) FH: heart disease Heart di Hypertension G8 BROTHER Allergies and Home Medications Allergies Coded Allergies: warfarin sodium (Verified Allergy, Mild, RASH, 10/04/17) Home Medications Aspirin 81 Mg Chew, 81 MG PO DAILY, (Reported) Atorvastatin Calcium 20 Mg Tablet, 20 MG PO HS, (Reported) Clopidogrel Bisulfate 75 Mg Tablet, 75 MG PO DAILY, (Reported) Doxazosin Mesylate 4 Mg Tablet, 4 MG PO HS, (Reported) Dutasteride 0.5 Mg Cap, 0.5 MG PO HS, (Reported) Gluc HCl/Csa/Khadar Hy/Hyalur AC 1 Each Capsule, 1 EACH PO BID, (Reported) Losartan Potassium 100 Mg Tablet, 100 MG PO DAILY, (Reported) Multivitamin 1 Each Tablet, 1 EACH PO DAILY, (Reported) Patient Home Medication List Home Medication List Reviewed: Yes Physical Exam-Cardiology Physical Exam Vital Signs/I&O 10/04/17 10/04/17 10/04/17 12:30 14:40 15:05 Temp 97.5 96.9 Pulse 80 98 53 Resp 18 18 20 B/P (MAP) 139/80 (99) 165/76 166/74 (104) Pulse Ox 97 99 97 O2 Delivery Room Air Capillary Refill : Less Than 3 Seconds Constitutional: appears stated age, AAO x 3, well-developed, well-nourished HEENT: PERRL, hearing is well preserved, oral hygience is good Neck: No carotid bruit; carotid pulses are 2 + bilaterally Respiratory: No accessory muscle use, No respiratory distress; chest expansion is symmetric, chest is bilaterally symmetric, lungs clear to auscultation Cardiovascular: irregularly irregular; No JVD; S1 and S2, systolic murmur Gastrointestinal: No tender; soft, round Rectal: deferred Extremities: no lower extremity edema bilateral Neurologic/Psychiatric: grossly intact Skin: No rash, No ulcerations Data Review Labs Laboratory Tests 10/04/17 12:45: White Blood Count 9.3, Red Blood Count 4.26L, Hemoglobin 12.8L, Hematocrit 38L, Mean Corpuscular Volume 89, Mean Corpuscular Hemoglobin 30, Mean Corpuscular Hemoglobin Concent 34, Red Cell Distribution Width 13.9, Platelet Count 198, Mean Platelet Volume 9.3, Neutrophils (%) (Auto) 53, Lymphocytes (%) (Auto) 39, Monocytes (%) (Auto) 8, Eosinophils (%) (Auto) 0, Basophils (%) (Auto) 0, Neutrophils # (Auto) 4.9, Lymphocytes # (Auto) 3.7, Monocytes # (Auto) 0.7, Eosinophils # (Auto) 0.0, Basophils # (Auto) 0.0, Prothrombin Time 14.2, INR Comment 1.1, Activated Partial Thromboplast Time 32, Sodium Level 142, Potassium Level 4.3, Chloride Level 111H, Carbon Dioxide Level 24, Anion Gap 7, Blood Urea Nitrogen 23H, Creatinine 1.28, Estimat Glomerular Filtration Rate 54 , BUN/Creatinine Ratio 18, Glucose Level 92, Calcium Level 8.9, Magnesium Level 2.2, Total Bilirubin 0.9, Aspartate Amino Transf (AST/SGOT) 16, Alanine Aminotransferase (ALT/SGPT) 18, Alkaline Phosphatase 39L, Myoglobin 69.7, Troponin I < 0.30, B-Type Natriuretic Peptide 348.2H, Total Protein 6.1L, Albumin 3.6 A/P-Cardiology Assessment/Admission Diagnosis Gen weakness and dizziness, relatively chronic, etiology un-established Recent full cardiac w/u with Dr Tang (his carpenter/labor in [place], [place]). Pt states he had a stress test, echo, carotid u/s and pacemaker interrogation; all was found to be well; he was told he has some tightness of the aortic valve but does not need any intervention CAD - with PCI to the mid-LAD, stent to the prox circ and balloon angioplasty to the RCA in July [address] Tang in [place], [place]. Exact details unknown - currently taking Plavix and ASA. PPM implanted in April 2016, details unknown - managed by Dr. Tang. Pt states this was recently interrogated and found to be functioning normally Bigeminal PVC's - seen on EKG of 10-04-17. Apparently, he has a relatively chronic h/o PVCs Chronic LBBB HLP HTN - he states he is currently having episodes of hypotension BPH Discussion and Recomendations * We reviewed and discussed his CV issues with him. Given an extensive cardiac w /u with Dr Tang for the above-noted symptoms, it is not likely that the source of dizziness and weakness is cardiac. We are trying to obtain the records of the cardiac w/u * He feels that his symptoms are related to low diastolic BP; he experiences symptoms when DBP is less than 60. Accordingly, it may reasonable to reduce the dose of doxazosin that he believes is responsible for his low DBP * Monitor labs Clinical Quality Measures AMI/AHF: ASA po Prior to arrival: No DVT/VTE Risk/Contraindication: Risk Factor Score Per Nursin RFS Level Per Nursing on Admit: 2=Moderate COCO SILVER MD FACP FACC [facility] October 04, 2017 16:14
[2017-10-04] MEDS ORDERED: CATHETER FLUSH 10 ML SYR IV PRN (17:30)
--- NOTE | 2017-10-04 19:13 | History & Physicial ---
History of Present Illness History of Present Illness Reason for visit/HPI patient came to the office today feeling terrible. Patient feel like fainting and weak patient's pulse was 40. Patient states his blood pressure has been variable and hypotensive at times. Patient had this previously and was sent out to the emergency room. Patient is coughing [place] and received a bunch of cardiac tests which will prove negative. Patient's EKG showed bigeminy and trigeminy. Patient is admitted. Patient has had 9 stents put in, hips surgery, Date of Admission October 04, 2017 at 13:51 Time Seen by Provider: 07:05 I consulted on this patient on 10/04/17 19:08 Attending Physician Tejinder Robbins DO Admitting Physician Tejinder Robbins DO Consult Allergies and Home Medications Allergies Coded Allergies: warfarin sodium (Verified Allergy, Mild, RASH, 10/04/17) Home Medications Aspirin 81 Mg Chew, 81 MG PO DAILY, (Reported) Atorvastatin Calcium 20 Mg Tablet, 20 MG PO HS, (Reported) Clopidogrel Bisulfate 75 Mg Tablet, 75 MG PO DAILY, (Reported) Doxazosin Mesylate 4 Mg Tablet, 4 MG PO HS, (Reported) Dutasteride 0.5 Mg Cap, 0.5 MG PO HS, (Reported) Gluc HCl/Csa/Khadar Hy/Hyalur AC 1 Each Capsule, 1 EACH PO BID, (Reported) Losartan Potassium 100 Mg Tablet, 100 MG PO DAILY, (Reported) Multivitamin 1 Each Tablet, 1 EACH PO DAILY, (Reported) Patient Home Medication List Home Medication List Reviewed: Yes Past Zksspju-Thnacs-Jalmqt Hx Patient Social History Marrital Status: Employed/Student: employed Alcohol Use: Denies Use Recreational Drug Use: No Smoking Status: Never a Smoker Recent Foreign Travel: No Contact w/other who traveled: No Recent Hopitalizations: No Recent Infectious Disease Expo: No Seasonal Allergies Seasonal Allergies: No Surgeries Yes (pacemaker, abdominal hernia surgery) Abdominal, Coronary Stent, Orthopedic, Pacemaker Respiratory No Cardiovascular Yes (PACEMAKER for treatment of bradycardic syndrome) Coronary Artery Disease, Hypertension Neurological No Genitourinary Yes Benign Prostatic Hyperpl Gastrointestinal No Musculoskeletal Yes Arthritis Endocrine History of Endocrine Disorders: No HEENT History of HEENT Disorders: No Cancer No Psychosocial History of Psychiatric Problem: No Integumentary History of Skin or Integumenta: No Family Medical History Family Hx: Colon cancer 19 FATHER (unknown cancer ) 19 MOTHER (unknown cancer) FH: heart disease Heart di Hypertension G8 BROTHER Constitutional: malaise, weakness EENTM: no symptoms reported Respiratory: no symptoms reported Cardiovascular: no symptoms reported Gastrointestinal: no symptoms reported Genitourinary: no symptoms reported Physical Exam Vital Signs Vital Signs - First Documented 10/04/17 10/04/17 12:30 15:05 Temp 97.5 Pulse 80 Resp 18 B/P (MAP) 139/80 (99) Pulse Ox 97 O2 Delivery Room Air Capillary Refill : Less Than 3 Seconds General Appearance: No Apparent Distress, WD/WN Eyes: Bilateral Eye Normal Inspection HEENT: Normal ENT Inspection Neck: Full Range of Motion, Normal Inspection Respiratory: Chest Non Tender, Lungs Clear, Normal Breath Sounds, No Accessory Muscle Use, No Respiratory Distress Cardiovascular: Bradycardia, Other (bigeminy and trigeminy) Gastrointestinal: Non Tender, Soft Assessment/Plan Assessment and Plan near-syncope. Weakness. Ventricular ectopic. Bigeminy and trigeminy. 7-9 previous stents coronary. Coronary arery disease. Benign prostatic hypertrophy Admission Diagnosis Admission Status: Observation Clinical Quality Measures AMI/AHF: ASA po Prior to arrival: No DVT/VTE Risk/Contraindication: Risk Factor Score Per Nursin RFS Level Per Nursing on Admit: 2=Moderate TEJINDER ROBBINS DO October 04, 2017 19:13
[2017-10-04 20:00] VITALS: BP 138/65
[2017-10-04] MEDS ORDERED: ATORVASTATIN 20 MG (LIPITOR) TABLET PO SCH (21:00)
[2017-10-04] MEDS ORDERED: doxAzosin 2 MG (CARDURA) TAB PO SCH (21:00)
[2017-10-04] MEDS ORDERED: FINASTERIDE (PROSCAR) 5 MG TAB PO SCH (21:00)
[2017-10-04] MEDS: CATHETER FLUSH 10 ML SYR IV SCH (21:03)
[2017-10-05] VITALS: BP 130/63
[2017-10-05] MEDS ORDERED: ACETAMINOPHEN 325 MG TABLET/CAPLET (TYLENOL) ONE (02:34)
[2017-10-05] MEDS ORDERED: ACETAMINOPHEN 500 MG TAB (TYLENOL) PO ONE (02:45)
[2017-10-05 04:00] VITALS: BP 143/63
[2017-10-05 05:57] LABS: HEMOGLOBIN 11.6 G/DL (13.3-17.7); RED BLOOD COUNT 3.91 10^6/uL (4.35-5.85); RED CELL DISTRIBUTION WIDTH 13.8 % (10.0-14.5); WHITE BLOOD COUNT 9.2 10^3/uL (4.3-11.0)
[2017-10-05 06:18] LABS: CALCIUM 8.6 MG/DL (8.5-10.1); CREATININE SERUM 1.21 MG/DL (0.60-1.30); MAGNESIUM 2.1 MG/DL (1.8-2.4); POTASSIUM 4.1 MMOL/L (3.6-5.0)
[2017-10-05] MEDS: CATHETER FLUSH 10 ML SYR IV SCH (06:21)
[2017-10-05] MEDS ORDERED: MULTIVIT W/MINERALS TAB (THERAGRAN M) PO SCH (07:00)
--- NOTE | 2017-10-05 07:53 | Progress Note (SOAP) ---
Subjective Time Seen by Provider: 07:50 Subjective/Events-last exam Patient feeling better today. Telemetry normal. The 2 medicines patient takes for BPH of the symptoms he has. Cutdown of the dose of Cardura. Plan to discharge today Objective Exam Vital Signs Date Time Temp Pulse Resp B/P (MAP) Pulse Ox O2 Delivery O2 Flow Rate FiO2 10/05/17 07:00 88 10/05/17 04:00 97.9 59 19 143/63 (89) 95 Room Air 10/05/17 01:00 81 10/05/17 00:00 97.5 66 16 130/63 (85) 99 Room Air 10/04/17 20:00 98.1 69 20 138/65 (89) 95 Room Air 10/04/17 19:00 70 10/04/17 15:28 96 10/04/17 15:05 96.9 53 20 166/74 (104) 97 Room Air 10/04/17 14:40 98 18 165/76 99 10/04/17 12:30 97.5 80 18 139/80 (99) 97 I & O 10/05/17 07:00 Intake Total 670 ml Balance 670 ml Capillary Refill : Less Than 3 Seconds General Appearance: No Apparent Distress, WD/WN HEENT: Normal ENT Inspection Neck: Full Range of Motion, Normal Inspection Respiratory: Chest Non Tender, Lungs Clear, No Accessory Muscle Use, No Respiratory Distress Cardiovascular: Regular Rate, Rhythm Gastrointestinal: non tender, soft Results Lab Laboratory Tests 10/04/17 12:45: White Blood Count 9.3, Red Blood Count 4.26L, Hemoglobin 12.8L, Hematocrit 38L, Mean Corpuscular Volume 89, Mean Corpuscular Hemoglobin 30, Mean Corpuscular Hemoglobin Concent 34, Red Cell Distribution Width 13.9, Platelet Count 198, Mean Platelet Volume 9.3, Neutrophils (%) (Auto) 53, Lymphocytes (%) (Auto) 39, Monocytes (%) (Auto) 8, Eosinophils (%) (Auto) 0, Basophils (%) (Auto) 0, Neutrophils # (Auto) 4.9, Lymphocytes # (Auto) 3.7, Monocytes # (Auto) 0.7, Eosinophils # (Auto) 0.0, Basophils # (Auto) 0.0, Prothrombin Time 14.2, INR Comment 1.1, Activated Partial Thromboplast Time 32, Sodium Level 142, Potassium Level 4.3, Chloride Level 111H, Carbon Dioxide Level 24, Anion Gap 7, Blood Urea Nitrogen 23H, Creatinine 1.28, Estimat Glomerular Filtration Rate 54 , BUN/Creatinine Ratio 18, Glucose Level 92, Calcium Level 8.9, Magnesium Level 2.2, Total Bilirubin 0.9, Aspartate Amino Transf (AST/SGOT) 16, Alanine Aminotransferase (ALT/SGPT) 18, Alkaline Phosphatase 39L, Myoglobin 69.7, Troponin I < 0.30, B-Type Natriuretic Peptide 348.2H, Total Protein 6.1L, Albumin 3.6 10/05/17 05:28: White Blood Count 9.2, Red Blood Count 3.91L, Hemoglobin 11.6L, Hematocrit 35L, Mean Corpuscular Volume 89, Mean Corpuscular Hemoglobin 30, Mean Corpuscular Hemoglobin Concent 33, Red Cell Distribution Width 13.8, Platelet Count 181, Mean Platelet Volume 9.0, Sodium Level 142, Potassium Level 4.1, Chloride Level 110H, Carbon Dioxide Level 24, Anion Gap 8, Blood Urea Nitrogen 21H, Creatinine 1.21, Estimat Glomerular Filtration Rate 58, BUN/Creatinine Ratio 17, Glucose Level 100, Calcium Level 8.6, Magnesium Level 2.1, Triglycerides Level 81, Cholesterol Level 97, LDL Cholesterol Direct 55, VLDL Cholesterol 16, HDL Cholesterol 32L, Thyroid Stimulating Hormone (TSH) 1.68 10/05/17 07:24: Stool Occult Blood Immunoassay NEGATIVE Assessment/Plan Assessment/Plan Assess & Plan/Chief Complaint Ventricular ectopy gone. Weakness better. BPH. Patient feeling better today. Plan to discharge later today. To be evaluated by urology Clinical Quality Measures Admission Status Admission Dx near-syncope. Weakness. Ventricular ectopic. Bigeminy and trigeminy. 7-9 previous stents coronary. Coronary arery disease. Benign prostatic hypertrophy AMI/AHF: ASA po Prior to arrival: No DVT/VTE Risk/Contraindication: Risk Factor Score Per Nursin RFS Level Per Nursing on Admit: 2=Moderate Contraindications-Pharm: Other *list below* JENNIFER ROBBINS DO October 05, 2017 07:53
[2017-10-05 08:00] VITALS: BP 156/71
[2017-10-05] MEDS ORDERED: LOSARTAN 100 MG (COZAAR) TABLET PO SCH (09:00)
[2017-10-05] MEDS ORDERED: CLOPIDOGREL 75 MG (PLAVIX) TABLET PO SCH (09:00)
[2017-10-05] MEDS ORDERED: ASPIRIN 81 MG CHEW (CHILDREN'S ASA) PO SCH (09:00)
--- NOTE | 2017-10-05 09:05 | Progress Note-Cardiology ---
Cardiology SOAP Progress Note Subjective: Sitting up in bed. Device interrogation taking place. No c/o CP, SOB, palpitations, or dizziness. States he feels good and wants to go home today. Wishes to f/u as out pt with Dr. Tang, his primary medical data analyst. Objective: I&O/Vital Signs 10/05/17 10/05/17 10/05/17 10/05/17 01:00 04:00 07:00 08:00 Temp 97.9 97.5 Pulse 81 59 88 53 Resp 19 18 B/P (MAP) 143/63 (89) 156/71 (99) Pulse Ox 95 97 O2 Delivery Room Air Room Air 10/05/17 11:01 B/P (MAP) 10/05/17 00:00 Intake Total 270 ml Balance 270 ml Weight (Pounds): 263 Weight (Ounces): 5.0 Weight (Calculated Kilograms): 119.743312 Constitutional: appears stated age, AAO x 3, well-developed, well-nourished Respiratory: No accessory muscle use, No respiratory distress; chest expansion is symmetric, chest is bilaterally symmetric, lungs clear to auscultation Cardiovascular: regular rate-rhythm (AV paced with occ PVC's - improved); No JVD; S1 and S2, systolic murmur Gastrointestional: No tender; soft, round Extremities: no lower extremity edema bilateral Neurologic/Psychiatric: grossly intact Skin: No rash, No ulcerations Results/Procedures: Labs Laboratory Tests 10/04/17 12:45: White Blood Count 9.3, Red Blood Count 4.26L, Hemoglobin 12.8L, Hematocrit 38L, Mean Corpuscular Volume 89, Mean Corpuscular Hemoglobin 30, Mean Corpuscular Hemoglobin Concent 34, Red Cell Distribution Width 13.9, Platelet Count 198, Mean Platelet Volume 9.3, Neutrophils (%) (Auto) 53, Lymphocytes (%) (Auto) 39, Monocytes (%) (Auto) 8, Eosinophils (%) (Auto) 0, Basophils (%) (Auto) 0, Neutrophils # (Auto) 4.9, Lymphocytes # (Auto) 3.7, Monocytes # (Auto) 0.7, Eosinophils # (Auto) 0.0, Basophils # (Auto) 0.0, Prothrombin Time 14.2, INR Comment 1.1, Activated Partial Thromboplast Time 32, Sodium Level 142, Potassium Level 4.3, Chloride Level 111H, Carbon Dioxide Level 24, Anion Gap 7, Blood Urea Nitrogen 23H, Creatinine 1.28, Estimat Glomerular Filtration Rate 54 , BUN/Creatinine Ratio 18, Glucose Level 92, Calcium Level 8.9, Magnesium Level 2.2, Total Bilirubin 0.9, Aspartate Amino Transf (AST/SGOT) 16, Alanine Aminotransferase (ALT/SGPT) 18, Alkaline Phosphatase 39L, Myoglobin 69.7, Troponin I < 0.30, B-Type Natriuretic Peptide 348.2H, Total Protein 6.1L, Albumin 3.6 10/05/17 05:28: White Blood Count 9.2, Red Blood Count 3.91L, Hemoglobin 11.6L, Hematocrit 35L, Mean Corpuscular Volume 89, Mean Corpuscular Hemoglobin 30, Mean Corpuscular Hemoglobin Concent 33, Red Cell Distribution Width 13.8, Platelet Count 181, Mean Platelet Volume 9.0, Sodium Level 142, Potassium Level 4.1, Chloride Level 110H, Carbon Dioxide Level 24, Anion Gap 8, Blood Urea Nitrogen 21H, Creatinine 1.21, Estimat Glomerular Filtration Rate 58, BUN/Creatinine Ratio 17, Glucose Level 100, Calcium Level 8.6, Magnesium Level 2.1, Triglycerides Level 81, Cholesterol Level 97, LDL Cholesterol Direct 55, VLDL Cholesterol 16, HDL Cholesterol 32L, Thyroid Stimulating Hormone (TSH) 1.68 10/05/17 07:24: Stool Occult Blood Immunoassay NEGATIVE A/P: Assessment: Gen weakness and dizziness, relatively chronic, etiology un-established Recent full cardiac w/u with Dr Tang (his medical data analyst in [place], [place]). Pt states he had a stress test, echo, carotid u/s and pacemaker interrogation; all was found to be well; he was told he has some "tightness of the aortic valve" but does not need any intervention Pacemaker interrogation on 10/05/17: Device [id number] implanted 04/20/16: Battery voltage 2.98 V, A cap thresh 0.75 V @ 0.4 ms, V cap thres 0.75 V @ 0.4ms, A sense 3.8 mV, V sense .12 mV CAD - with PCI to the mid-LAD, stent to the prox circ and balloon angioplasty to the RCA in July [address] Tang in [place], [place]. Exact details unknown - currently taking Plavix and ASA. PPM implanted in April 2016, details unknown - managed by Dr. Tang. Pt states this was recently interrogated and found to be functioning normally Bigeminal PVC's - seen on EKG of 10-04-17. Apparently, he has a relatively chronic h/o PVCs Chronic LBBB HLP HTN - he states he is currently having episodes of hypotension BPH Plan: * We reviewed and discussed his CV issues with him. Given an extensive cardiac w /u with Dr Tang for the above-noted symptoms, it is not likely that the source of dizziness and weakness is cardiac. We are trying to obtain the records of the cardiac w/u. We have not received medical records as of yet * He feels that his symptoms are related to low diastolic BP; he experiences symptoms when DBP is less than 60. We have reduced the dose of doxazosin that he believes is responsible for his low DBP. * He has been seen by Dr. Santana * Monitor labs * Wants to go home today and f/u with Dr. Tang Physician Assessment Physician Assessment No cp or palp or syncope or shortness of breath since admission Lungs: good bilat air entry Cor: reg Ext: no c/c/e A&R * As documented in our note above that I updated (italics) and as noted below * Pacemaker reinterrogated: working normally * Tele: isolated PVCs, asymptomatic * We discussed his CV issues and advised f/u with his medical data analyst, Dr Tang * Cardura dose has been reduced and he has since felt better * Risk factor mod reviewed Clinical Quality Measures AMI/AHF: ASA po Prior to arrival: ATIF [place] DIGITAL X RAY SERVICE ENGINEER October 05, 2017 09:05 COCO SILVER MD FACP FAC CCDS October 05, 2017 12:50
[2017-10-05] MEDS ORDERED: LOSARTAN 50 MG (COZAAR) TAB PO NR (10:00)
[2017-10-05] MEDS ORDERED: LOSA25TA21 PO (10:11)
[2017-10-05] MEDS ORDERED: LOSA50TA36 PO (10:12)
--- NOTE | 2017-10-05 10:12 | Physical Therapy Progress Note ---
Therapy Progress Note Attempted PT evaluation. Nurse present and noted pt to discharge today. Pt and nurse express that PT is not indicated. Report he has been up walking and did not have any difficulty. No PT rendered this date. RICHMOND RODRIGUEZ PT October 05, 2017 10:12
[2017-10-05] MEDS ORDERED: DOXA4TAB PO (10:13)
--- NOTE | 2017-10-05 15:52 | CONSULTATION REPORT ---
DATE OF SERVICE: 10/05/2017 ATTENDING PHYSICIAN: Tejinder Covarrubias DO SUMMARY: A 76-year-old white man with BPH and prostatism who has been taking Cardura 4 mg and Avodart 0.5 mg daily for years, recently developed an episode of hypotension and ventricular ectopy with some weakness. He was on more than one blood pressure medication as well as diuretics. The Cardura was decreased by Dr. Covarrubias to 2 mg. The patient is feeling and doing better. IMPRESSION: BPH, prostatism and hypotension. RECOMMENDATION: Gradual withdrawal from Cardura and then if needed BPH and prostatism butcher, put him on Flomax which is relatively safer at a 0.4 mg daily and watch for adverse effect. Keep him on Avodart that should not have any effect on the blood pressure. I will see him back in the office in three weeks and manage accordingly. Job ID: [id number] DocumentID: [id number] Dictated Date: 10/05/2017 08:11:46 Dog Catcher Date: 10/05/2017 14:02:48 Dictated By: BASIL GARCIA MD
--- NOTE | 2017-10-06 08:35 | Physician Query-Final Dx ---
TRESSA CAMACHO 10/06/17 0835: Final Diagnosis Give Final Diagnosis Please give Final Diagnosis JENNIFER ROBBINS DO 10/07/17 0721: Final Diagnosis Give Final Diagnosis Weakness, Dizziness. Bigeminy PVCs. Hypotension. History of hypertension. Left bundle branch block. Benign prostatic hypertrophy. Coronary artery disease. TRESSA CAMACHO October 06, 2017 08:35 JENNIFER ROBBINS DO Oct 07, 2017 07:21
--- NOTE | 2017-10-07 07:19 | Discharge Summary ---
Diagnosis/Chief Complaint Date of Admission October 04, 2017 at 13:51 Date of Discharge October 05, 2017 at 11:01 Discharge Date: October 05, 2017 Discharge Diagnosis Weakness. Dizziness. Bigeminy PVCs. Hypotension. History of hypertension. Drug reaction. Coronary artery disease. Chronic left bundle branch block area Benign prostatic hypertrophy. Prostatism Reason Hospital Visit patient came to the office today feeling terrible. Patient feel like fainting and weak patient's pulse was 40. Patient states his blood pressure has been variable and hypotensive at times. Patient had this previously and was sent out to the emergency room. Patient is coughing Lummi and received a bunch of cardiac tests which will prove negative. Patient's EKG showed bigeminy and trigeminy. Patient is admitted. Patient has had 9 stents put in, hips surgery, Discharge Summary Consultations Urology. Cardiology Discharge Physical Examination Allergies: Coded Allergies: warfarin sodium (Verified Allergy, Mild, RASH, 10/04/17) Vitals & I&Os Vital Signs Date Time Temp Pulse Resp B/P (MAP) Pulse Ox O2 Delivery O2 Flow Rate FiO2 10/05/17 11:01 10/05/17 08:00 97.5 53 18 97 Room Air Hospital Course Patient feeling better with reduction of Cardura. We'll DC Cardura when he comes to office Labs (last 24 hrs) Laboratory Tests 10/04/17 12:45: White Blood Count 9.3, Red Blood Count 4.26L, Hemoglobin 12.8L, Hematocrit 38L, Mean Corpuscular Volume 89, Mean Corpuscular Hemoglobin 30, Mean Corpuscular Hemoglobin Concent 34, Red Cell Distribution Width 13.9, Platelet Count 198, Mean Platelet Volume 9.3, Neutrophils (%) (Auto) 53, Lymphocytes (%) (Auto) 39, Monocytes (%) (Auto) 8, Eosinophils (%) (Auto) 0, Basophils (%) (Auto) 0, Neutrophils # (Auto) 4.9, Lymphocytes # (Auto) 3.7, Monocytes # (Auto) 0.7, Eosinophils # (Auto) 0.0, Basophils # (Auto) 0.0, Prothrombin Time 14.2, INR Comment 1.1, Activated Partial Thromboplast Time 32, Sodium Level 142, Potassium Level 4.3, Chloride Level 111H, Carbon Dioxide Level 24, Anion Gap 7, Blood Urea Nitrogen 23H, Creatinine 1.28, Estimat Glomerular Filtration Rate 54 , BUN/Creatinine Ratio 18, Glucose Level 92, Calcium Level 8.9, Magnesium Level 2.2, Total Bilirubin 0.9, Aspartate Amino Transf (AST/SGOT) 16, Alanine Aminotransferase (ALT/SGPT) 18, Alkaline Phosphatase 39L, Myoglobin 69.7, Troponin I < 0.30, B-Type Natriuretic Peptide 348.2H, Total Protein 6.1L, Albumin 3.6 10/05/17 05:28: White Blood Count 9.2, Red Blood Count 3.91L, Hemoglobin 11.6L, Hematocrit 35L, Mean Corpuscular Volume 89, Mean Corpuscular Hemoglobin 30, Mean Corpuscular Hemoglobin Concent 33, Red Cell Distribution Width 13.8, Platelet Count 181, Mean Platelet Volume 9.0, Sodium Level 142, Potassium Level 4.1, Chloride Level 110H, Carbon Dioxide Level 24, Anion Gap 8, Blood Urea Nitrogen 21H, Creatinine 1.21, Estimat Glomerular Filtration Rate 58, BUN/Creatinine Ratio 17, Glucose Level 100, Calcium Level 8.6, Magnesium Level 2.1, Triglycerides Level 81, Cholesterol Level 97, LDL Cholesterol Direct 55, VLDL Cholesterol 16, HDL Cholesterol 32L, Prostate Specific Antigen 0.92, Thyroid Stimulating Hormone ( TSH) 1.68 10/05/17 07:24: Stool Occult Blood Immunoassay NEGATIVE Laboratory Tests 10/04/17 12:45 10/05/17 05:28 Pending Labs Laboratory Tests 10/04/17 12:45: White Blood Count 9.3, Red Blood Count 4.26, Hemoglobin 12.8, Hematocrit 38, Mean Corpuscular Volume 89, Mean Corpuscular Hemoglobin 30, Mean Corpuscular Hemoglobin Concent 34, Red Cell Distribution Width 13.9, Platelet Count 198, Mean Platelet Volume 9.3, Neutrophils (%) (Auto) 53, Lymphocytes (%) (Auto) 39, Monocytes (%) (Auto) 8, Eosinophils (%) (Auto) 0, Basophils (%) (Auto) 0, Neutrophils # (Auto) 4.9, Lymphocytes # (Auto) 3.7, Monocytes # (Auto) 0.7, Eosinophils # (Auto) 0.0, Basophils # (Auto) 0.0, Prothrombin Time 14.2, INR Comment 1.1, Activated Partial Thromboplast Time 32, Sodium Level 142, Potassium Level 4.3, Chloride Level 111, Carbon Dioxide Level 24, Anion Gap 7, Blood Urea Nitrogen 23, Creatinine 1.28, Estimat Glomerular Filtration Rate 54, BUN/Creatinine Ratio 18, Glucose Level 92, Calcium Level 8.9, Magnesium Level 2.2, Total Bilirubin 0.9, Aspartate Amino Transf (AST/SGOT) 16, Alanine Aminotransferase (ALT/SGPT) 18, Alkaline Phosphatase 39, Myoglobin 69.7, Troponin I < 0.30, B-Type Natriuretic Peptide 348.2, Total Protein 6.1, Albumin 3.6 10/05/17 05:28: White Blood Count 9.2, Red Blood Count 3.91, Hemoglobin 11.6, Hematocrit 35, Mean Corpuscular Volume 89, Mean Corpuscular Hemoglobin 30, Mean Corpuscular Hemoglobin Concent 33, Red Cell Distribution Width 13.8, Platelet Count 181, Mean Platelet Volume 9.0, Sodium Level 142, Potassium Level 4.1, Chloride Level 110, Carbon Dioxide Level 24, Anion Gap 8, Blood Urea Nitrogen 21, Creatinine 1.21, Estimat Glomerular Filtration Rate 58, BUN/Creatinine Ratio 17, Glucose Level 100, Calcium Level 8.6, Magnesium Level 2.1, Triglycerides Level 81, Cholesterol Level 97, LDL Cholesterol Direct 55, VLDL Cholesterol 16, HDL Cholesterol 32, Prostate Specific Antigen 0.92, Thyroid Stimulating Hormone (TSH ) 1.68 10/05/17 07:24: Stool Occult Blood Immunoassay NEGATIVE Discharge Home Medications: Active Scripts Active Cardura (Doxazosin Mesylate) 4 Mg Tablet 2 Mg PO HS 30 Days TAKE 1/2 OF 4MG TAB AT BEDTIME Reported Losartan Potassium 50 Mg Tablet 50 Mg PO HS Losartan Potassium 25 Mg Tablet 25 Mg PO DAILY Glucosamine Chondroitin Cap (Gluc HCl/Csa/Khadar Hy/Hyalur AC) 1 Each Capsule 1 Each PO BID Multi-Vitamin Daily (Multivitamin) 1 Each Tablet 1 Each PO DAILY Avodart (Dutasteride) 0.5 Mg Cap 0.5 Mg PO HS Atorvastatin Calcium 20 Mg Tablet 20 Mg PO HS Plavix (Clopidogrel Bisulfate) 75 Mg Tablet 75 Mg PO DAILY Aspirin 81 Mg Chew Tab (Aspirin) 81 Mg Chew 81 Mg PO DAILY Instructions to patient/family Please see electronic discharge instructions given to patient. Clinical Quality Measures AMI/AHF: ASA po Prior to arrival: No DVT/VTE Risk/Contraindication: Risk Factor Score Per Nursin RFS Level Per Nursing on Admit: 2=Moderate Contraindications-Pharm: Other *list below* JENNIFER ROBBINS DO Oct 07, 2017 07:19
== END 2017-10-05 11:01 | disposition home or self-care (01) | DRG 948 ==
LOC: EDUNIT# 12:30 → ER 12:32 → 4TH 13:51
PROVIDERS: ADMIT Family Medicine; ATTEND Family Medicine
DX: R53.1 Weakness (principal); R42 Dizziness and giddiness; I49.3 Ventricular premature depolarization; I95.9 Hypotension, unspecified; I25.10 Atherosclerotic heart disease of native coronary artery without angina pectoris; I10 Essential (primary) hypertension; I44.7 Left bundle-branch block, unspecified; E78.5 Hyperlipidemia, unspecified; N40.0 Benign prostatic hyperplasia without lower urinary tract symptoms; Z95.0 Presence of cardiac pacemaker; Z95.5 Presence of coronary angioplasty implant and graft; Z79.02 Long term (current) use of antithrombotics/antiplatelets; Z79.82 Long term (current) use of aspirin
CPT/HCPCS: 36415; 71045; 80048; 80053; 80061; 82274; 83735; 83874; 83880; 84153; 84443; 84484; 85025; 85027; 85610; 85730; 93005; 93041

== ENCOUNTER 2018-01-30 08:15 | Outpatient (RCR) | payer MEDICARE ==
[~2018-01-30 08:15] MED LIST changes: +ATOR20TA66 PO; +AVOD0.5CAP PO; +CLOP75TA69 PO; +DOXA4TAB PO; +GLUC1CAP14 PO; +LOSA100T8 PO; +LOSA25TA6 PO; +LOSA50TA7 PO; +MULT-974 PO
== END 2018-02-05 | disposition home or self-care (01) ==
LOC: CR 08:15
PROVIDERS: ATTEND Thoracic Surgery (Cardiothoracic Vascular Surgery)
DX: Z48.812 Encounter for surgical aftercare following surgery on the circulatory system (principal); Z95.1 Presence of aortocoronary bypass graft
CPT/HCPCS: 93798

== ENCOUNTER → 2018-02-03 | Outpatient (CLI) | payer MEDICARE ==
[2018-02-03 10:24] LABS: CALCIUM 9.4 MG/DL (8.5-10.1); CREATININE SERUM 1.25 MG/DL (0.60-1.30); POTASSIUM 4.4 MMOL/L (3.6-5.0)
--- NOTE | 2018-02-03 12:39 | Diagnostic Imaging Report ---
PA and lateral chest at 10:42 a.m. INDICATION: Shortness of breath. FINDINGS: In the interval since the prior exam of 10/04/2017, the patient has undergone a cardiac surgical procedure. There are sternotomy wires and surgical clips now evident. The heart is somewhat larger than noted on the prior exam and is borderline enlarged. The left-sided pacemaker seen previously is again evident and no different. The perihilar markings are somewhat prominent when compared to the prior study. There is no evidence for overt failure, however. A few Eduarda B-lines have developed in the right lung base indicating there may be an element of mild pulmonary congestion present. The lungs are otherwise generally clear. There is no sign of pneumonia or of a significant pleural effusion. The mediastinum is not widened. The osseous structures are intact. IMPRESSION: 1. In the interval since the prior exam, the patient has undergone a cardiac surgical procedure. The heart is now mildly enlarged. There may also be an element of mild pulmonary congestion present. 2. There is no acute cardiopulmonary abnormality noted otherwise. Dictated by: Dictated on workstation # [id number]
== END ==
LOC: CARD 09:57
PROVIDERS: ATTEND Family Medicine
DX: I25.10 Atherosclerotic heart disease of native coronary artery without angina pectoris (principal); R06.02 Shortness of breath; I49.9 Cardiac arrhythmia, unspecified
CPT/HCPCS: 36415; 71046; 80048; 93005

== ENCOUNTER 2018-05-05 15:37 | Outpatient (RCR) | payer MEDICARE | END 2018-05-07 | disposition home or self-care (01) | LOC: CR 15:37 | PROVIDERS: ATTEND Thoracic Surgery (Cardiothoracic Vascular Surgery) | DX: Z48.812 Encounter for surgical aftercare following surgery on the circulatory system (principal); Z95.1 Presence of aortocoronary bypass graft | CPT/HCPCS: 93798 ==

== ENCOUNTER 2018-06-16 09:16 | Outpatient (RCR) | payer MEDICARE ==
[~2018-06-16 09:16] MED LIST changes: +LOSA100T57 PO; -LOSA100T8 PO; +LOSA25TA41 PO; -LOSA25TA6 PO; +LOSA50TA63 PO; -LOSA50TA7 PO
== END 2018-08-13 | disposition home or self-care (01) ==
LOC: CR 09:16
PROVIDERS: ATTEND Thoracic Surgery (Cardiothoracic Vascular Surgery)
DX: Z48.812 Encounter for surgical aftercare following surgery on the circulatory system (principal); Z95.1 Presence of aortocoronary bypass graft
CPT/HCPCS: 93798

== ENCOUNTER 2018-06-27 19:55 | Emergency (ER) | payer MEDICARE ==
[~2018-06-27] VITALS: Ht 177.8 cm; Wt 119.4 kg
[2018-06-27 20:26] LABS: BASOPHILS % (AUTO) 0 % (0-10); EOSINOPHILS # (AUTO) 0.1 10^3/uL (0.0-0.3); EOSINOPHILS % (AUTO) 1 % (0-10); HEMATOCRIT 36 % (40-54); HEMOGLOBIN 12.1 G/DL (13.3-17.7); LYMPHOCYTES # (AUTO) 4.2 X 10^3 (1.0-4.0); LYMPHOCYTES % (AUTO) 46 % (12-44); MEAN CORPUSCULAR HEMOGLOBIN 28 PG (25-34); MEAN CORPUSCULAR HGB CONC 34 G/DL (32-36); MEAN CORPUSCULAR VOLUME 84 FL (80-99); MEAN PLATELET VOLUME 9.1 FL (7.4-10.4); MONOCYTES # (AUTO) 0.6 X 10^3 (0.0-1.0); MONOCYTES % (AUTO) 7 % (0-12); NEUTROPHILS # (AUTO) 4.2 X 10^3 (1.8-7.8); NEUTROPHILS % (AUTO) 46 % (42-75); PLATELET COUNT 190 10^3/uL (130-400); RED CELL DISTRIBUTION WIDTH 14.3 % (10.0-14.5); WHITE BLOOD COUNT 9.1 10^3/uL (4.3-11.0)
[2018-06-27 20:46] LABS: ALBUMIN 3.7 GM/DL (3.2-4.5); BILIRUBIN,TOTAL 0.5 MG/DL (0.1-1.0); CALCIUM 8.9 MG/DL (8.5-10.1); CREATININE SERUM 1.43 MG/DL (0.60-1.30); POTASSIUM 4.3 MMOL/L (3.6-5.0); TOTAL PROTEIN 6.2 GM/DL (6.4-8.2)
--- NOTE | 2018-06-27 21:28 | ED General ---
General Chief Complaint: Cardiac/General Problems Stated Complaint: LAB ABNORMAL/ FROM REQUESTED HE COME IN TO E Nursing Triage Note: Pt's doc from called and told him to come to ED because he had some abnormal labs. They told him his calcium was low and was going to call and talk to the ED doc Nursing Sepsis Screen: No Definite Risk Source of Information: Patient Exam Limitations: No Limitations History of Present Illness Date Seen by Provider: Jun 27, 2018 Time Seen by Provider: 20:20 Initial Comments 77-year-old male who was sent to the emergency room by [facility] and was told to come to the emergency room because he had abnormal labs on his visit today. The sales support representative did call the the ER and informed us that his calcium was 5.1 and his anion gap was 34 at today's visit. The patient is not symptomatic at this time and voices no complaints. He did recently get over a gastrointestinal episode last week. Allergies and Home Medications Allergies Coded Allergies: warfarin sodium (Verified Allergy, Mild, RASH, 10/04/17) Home Medications Aspirin 81 Mg Chew, 81 MG PO DAILY, (Reported) Atorvastatin Calcium 20 Mg Tablet, 20 MG PO HS, (Reported) Clopidogrel Bisulfate 75 Mg Tablet, 75 MG PO DAILY, (Reported) Doxazosin Mesylate 4 Mg Tablet, 2 MG PO HS TAKE 1/2 OF 4MG TAB AT BEDTIME Prescribed by: NARDA CAAL on 10/05/17 1013 Dutasteride 0.5 Mg Cap, 0.5 MG PO HS, (Reported) Gluc HCl/Csa/Khadar Hy/Hyalur AC 1 Each Capsule, 1 EACH PO BID, (Reported) Losartan Potassium 25 Mg Tablet, 25 MG PO DAILY, (Reported) Losartan Potassium 50 Mg Tablet, 50 MG PO HS, (Reported) Multivitamin 1 Each Tablet, 1 EACH PO DAILY, (Reported) Past [id number] Hx Patient Social History Alcohol Use: Occasionally Uses Recreational Drug Use: No Smoking Status: Never a Smoker Recent Foreign Travel: No Contact w/Someone Who Travel: No Recent Infectious Disease Expo: No Recent Hopitalizations: No Immunizations Up To Date Tetanus Booster (TDap): Unknown Seasonal Allergies Seasonal Allergies: No Past Medical History Surgeries: Yes (pacemaker, abdominal hernia surgery) Abdominal, CABG, Coronary Stent, Orthopedic, Pacemaker Respiratory: No 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) Coronary Artery Disease, Hypertension Neurological: No Genitourinary: Yes Benign Prostatic Hyperpl Gastrointestinal: No Musculoskeletal: Yes Arthritis Endocrine: No HEENT: No Cancer: No Psychosocial: No Integumentary: No Family Medical History Colon cancer 19 FATHER (unknown cancer ) 19 MOTHER (unknown cancer) FH: heart disease Heart di Hypertension G8 BROTHER Physical Exam Vital Signs Vital Signs - First Documented 06/27/18 06/27/18 19:59 21:40 Temp 98.1 Pulse 61 Resp 18 B/P (MAP) 135/70 (91) Pulse Ox 99 O2 Delivery Room Air Capillary Refill : Less Than 3 Seconds Height, Weight, BMI Height: 5'10.00" Weight: 263lbs. 5.0oz. 119.794133ed; 37.8 BMI Method:Stated Progress/Results/Core Measures Suspected Sepsis Recent Fever Within 48 Hours: No Infection Criteria Present: None New/Unexplained Altered Menta: No Sepsis Screen: No Definite Risk SIRS Temperature:98.1 Pulse: 61 Respiratory Rate: 18 Laboratory Tests 06/27/18 20:19: White Blood Count 9.1 Blood Pressure / Mean: Laboratory Tests 06/27/18 20:19: Creatinine 1.43H, Platelet Count 190, Total Bilirubin 0.5 Results/Orders Lab Results Laboratory Tests Test 06/27/18 20:19 Range/Units White Blood Count 9.1 4.3-11.0 10^3/uL Red Blood Count 4.27 L 4.35-5.85 10^6/uL Hemoglobin 12.1 L 13.3-17.7 G/DL Hematocrit 36 L 40-54 % Mean Corpuscular Volume 84 80-99 FL Mean Corpuscular Hemoglobin 28 25-34 PG Mean Corpuscular Hemoglobin Concent 34 32-36 G/DL Red Cell Distribution Width 14.3 10.0-14.5 % Platelet Count 190 130-400 10^3/uL Mean Platelet Volume 9.1 7.4-10.4 FL Neutrophils (%) (Auto) 46 42-75 % Lymphocytes (%) (Auto) 46 H 12-44 % Monocytes (%) (Auto) 7 0-12 % Eosinophils (%) (Auto) 1 0-10 % Basophils (%) (Auto) 0 0-10 % Neutrophils # (Auto) 4.2 1.8-7.8 X 10^3 Lymphocytes # (Auto) 4.2 H 1.0-4.0 X 10^3 Monocytes # (Auto) 0.6 0.0-1.0 X 10^3 Eosinophils # (Auto) 0.1 0.0-0.3 10^3/uL Basophils # (Auto) 0.0 0.0-0.1 10^3/uL Sodium Level 140 135-145 MMOL/L Potassium Level 4.3 3.6-5.0 MMOL/L Chloride Level 110 H 98-107 MMOL/L Carbon Dioxide Level 21 21-32 MMOL/L Anion Gap 9 5-14 MMOL/L Blood Urea Nitrogen 24 H 7-18 MG/DL Creatinine 1.43 H 0.60-1.30 MG/DL Estimat Glomerular Filtration Rate 48 BUN/Creatinine Ratio 17 Glucose Level 114 H 70-105 MG/DL Calcium Level 8.9 8.5-10.1 MG/DL Corrected Calcium 9.1 8.5-10.1 MG/DL Total Bilirubin 0.5 0.1-1.0 MG/DL Aspartate Amino Transf (AST/SGOT) 19 5-34 U/L Alanine Aminotransferase (ALT/SGPT) 11 0-55 U/L Alkaline Phosphatase 52 40-136 U/L Total Protein 6.2 L 6.4-8.2 GM/DL Albumin 3.7 3.2-4.5 GM/DL Vital Signs/I&O 06/27/18 06/27/18 19:59 21:40 Temp 98.1 98.1 Pulse 61 59 Resp 18 18 B/P (MAP) 135/70 (91) Pulse Ox 99 99 O2 Delivery Room Air Room Air Capillary Refill : Less Than 3 Seconds ECG Initial ECG Impression Date: Jun 27, 2018 Initial ECG Impression Time: 20:08 Initial ECG Rate: 82 Initial ECG Intervals A-V Dual-Paced Complexes Initial ECG Comparisson: No Previous ECG Available, Unchanged Departure Impression Primary Impression: General medical exam Disposition: 01 HOME, SELF-CARE Condition: Stable/Unchanged Departure-Patient Inst. Decision time for Depature: 21:26 Referrals: JENNIFER ROBBINS DO (PCP/Family) Primary Care Physician Patient Instructions: NO INSTRUCTIONS GIVEN Add. Discharge Instructions: Follow-up with [facility] as directed. Be sure that she will drink plenty of fluids to keep hydrated. Return back to the emergency room for worsening symptoms or concerns as needed. All discharge instructions reviewed with patient and/or family. Voiced understanding. COOKIE PINEDA Jun 27, 2018 21:28
[2018-06-27 21:40] VITALS: BP 135/70
== END 2018-06-27 21:40 | disposition home or self-care (01) ==
LOC: EDUNIT# 19:55 → ER 19:56
DX: R79.9 Abnormal finding of blood chemistry, unspecified (principal); I25.10 Atherosclerotic heart disease of native coronary artery without angina pectoris; I10 Essential (primary) hypertension; Z80.0 Family history of malignant neoplasm of digestive organs; Z82.49 Family history of ischemic heart disease and other diseases of the circulatory system; Z87.448 Personal history of other diseases of urinary system; Z88.8 Allergy status to other drugs, medicaments and biological substances; Z79.82 Long term (current) use of aspirin; Z79.02 Long term (current) use of antithrombotics/antiplatelets; Z95.1 Presence of aortocoronary bypass graft; Z98.890 Other specified postprocedural states; Z95.5 Presence of coronary angioplasty implant and graft; Z95.0 Presence of cardiac pacemaker
CPT/HCPCS: 36415; 80053; 85025; 93005; 93041

== ENCOUNTER → 2018-09-06 | Outpatient (CLI) | payer MEDICARE | LOC: CARD 14:28 | PROVIDERS: ATTEND Family Medicine | DX: R00.1 Bradycardia, unspecified (principal) | CPT/HCPCS: 93005 ==

== ENCOUNTER → 2018-09-06 | Outpatient (CLI) | payer MEDICARE ==
[2018-09-06 09:37] LABS: MEAN PLATELET VOLUME 9.4 FL (7.4-10.4); RED CELL DISTRIBUTION WIDTH 14.2 % (10.0-14.5); WHITE BLOOD COUNT 7.1 10^3/uL (4.3-11.0)
[2018-09-06 10:00] LABS: ALBUMIN 3.9 GM/DL (3.2-4.5); BILIRUBIN,TOTAL 1.2 MG/DL (0.1-1.0); CALCIUM 9.4 MG/DL (8.5-10.1); CREATININE SERUM 1.19 MG/DL (0.60-1.30); POTASSIUM 4.3 MMOL/L (3.6-5.0); TOTAL PROTEIN 6.2 GM/DL (6.4-8.2)
--- NOTE | 2018-09-06 11:55 | Diagnostic Imaging Report ---
INDICATION: Shortness of breath. Comparison made with prior examination 02/03/2018 FINDINGS: There is cardiomegaly. There has been previous median sternotomy. Pacemaker overlies left hemithorax. There is no pleural effusion or pneumothorax. Mediastinum is unremarkable. IMPRESSION: No acute cardiopulmonary abnormality. Cardiomegaly. Dictated by: Dictated on workstation # [id number]
== END ==
LOC: LAB 09:12
PROVIDERS: ATTEND Family Medicine
DX: I25.10 Atherosclerotic heart disease of native coronary artery without angina pectoris (principal); E03.9 Hypothyroidism, unspecified; R06.02 Shortness of breath
CPT/HCPCS: 36415; 71046; 80053; 80061; 83880; 84443; 85027

== ENCOUNTER → 2018-09-13 | Outpatient (CLI) | payer MEDICARE | LOC: LAB 08:23 | PROVIDERS: ATTEND Family Medicine | DX: I50.9 Heart failure, unspecified (principal) | CPT/HCPCS: 36415; 83880 ==

== ENCOUNTER 2020-04-11 21:07 | Emergency (ER) | payer MEDICARE ==
[~2020-04-11] VITALS: Ht 177.8 cm; Wt 115.7 kg
[2020-04-11] MEDS ORDERED: morphine INJ 10 MG/ML 1ML (SYR OR VIAL) IV STA (21:27)
[2020-04-11] MEDS ORDERED: NS IV 1000 ML 1,000 ML IV SCH (21:30)
[2020-04-11] MEDS ORDERED: FAMOTIDINE 20MG/2ML IV (PEPCID) IVP ONE (21:30)
--- NOTE | 2020-04-11 21:32 | ED Abdominal Pain ---
General Chief Complaint: Abdominal/GI Problems Stated Complaint: POST CARDIAC PROCEDURE/ABD PAIN/NAUSEA Nursing Triage Note: PT TO ROOM 06 VIA W/C WITH C/O ABD PAIN, NAUSEA, AND WEAKNESS. Sepsis Screen: No Definite Risk Exam Limitations: No Limitations History of Present Illness Date Seen by Provider: Apr 11, 2020 Time Seen by Provider: 21:18 Initial Comments The patient presents to the ER by private conveyance from home with chief compla int of epigastric abdominal pain sharp, sudden onset, unrelenting 10 out of 10 pain starting about 4 hours prior to arrival. He tried simethicone, Maalox, omeprazole with no relief. He took a hydrocodone he had left over from a dentist appointment with no relief. He had a bowel movement couple hours ago that was very hard to pass, borderline constipation. He is using some [id number] laxatives. He's having some nausea but no vomiting. No fevers chills rash cough or shortness of air. 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 He says this pain is unlike anything he's had before. No intra-abdominal surgeries other than a umbilical hernia repair. Allergies and Home Medications Allergies Coded Allergies: warfarin sodium (Verified Allergy, Mild, RASH, 10/04/17) amiodarone (Verified Adverse Reaction, Unknown, itching skin, 04/11/20) Home Medications Aspirin 81 Mg Chew, 81 MG PO DAILY, (Reported) Atorvastatin Calcium 20 Mg Tablet, 20 MG PO HS, (Reported) Clopidogrel Bisulfate 75 Mg Tablet, 75 MG PO DAILY, (Reported) Doxazosin Mesylate 4 Mg Tablet, 2 MG PO HS TAKE 1/2 OF 4MG TAB AT BEDTIME Prescribed by: NARDA CAAL on 10/05/17 1013 Dutasteride 0.5 Mg Cap, 0.5 MG PO HS, (Reported) Gluc HCl/Csa/Khadar Hy/Hyalur AC 1 Each Capsule, 1 EACH PO BID, (Reported) Losartan Potassium 25 Mg Tablet, 25 MG PO DAILY, (Reported) Losartan Potassium 50 Mg Tablet, 50 MG PO HS, (Reported) Multivitamin 1 Each Tablet, 1 EACH PO DAILY, (Reported) Patient Home Medication List Home Medication List Reviewed: Yes Review of Systems Review of Systems Constitutional: No chills, No fever, No malaise EENTM: No Blurred Vision, No Double Vision Respiratory: Denies Cough, Denies Shortness of Air Cardiovascular: Denies Chest Pain, Denies Lightheadedness Gastrointestinal: Denies Abdominal Pain; Constipated; Denies Diarrhea; Nausea; Denies Poor Fluid Intake, Denies Vomiting Genitourinary: Denies Burning, Denies Discharge Musculoskeletal: No back pain, No joint pain All Other Systems Reviewed Negative Unless Noted: Yes Past Sspykja-Vvhzkw-Kallod Hx Patient Social History Alcohol Use: Denies Use Recreational Drug Use: No Smoking Status: Never a Smoker 2nd Hand Smoke Exposure: No Recent Foreign Travel: No Contact w/Someone Who Travel: No Recent Infectious Disease Expo: No Recent Hopitalizations: No Physical Abuse: No Sexual Abuse: No Mistreated: No Fear: No Immunizations Up To Date Tetanus Booster (TDap): Unknown Seasonal Allergies Seasonal Allergies: No Past Medical History Surgeries: Yes (pacemaker, abdominal hernia surgery) Abdominal, CABG, Coronary Stent, Orthopedic, Pacemaker Respiratory: No 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 5.0oz. 119.397695sd; 36.00 BMI Method:Stated General Appearance: WD/WN, mild distress HEENT: normal ENT inspection, pharynx normal Neck: full range of motion, normal inspection Respiratory: chest non-tender, lungs clear, normal breath sounds, no respiratory distress, no accessory muscle use Cardiovascular: normal peripheral pulses, regular rate, rhythm Peripheral Pulses: 2+ Radial Pulses (R), 2+ Radial Pulses (L) Gastrointestinal: normal bowel sounds (active), soft, tenderness (epigastric) Extremities: normal range of motion, non-tender, normal capillary refill Neurologic/Psychiatric: alert, normal mood/affect, oriented x 3 Skin: normal color, warm/dry Progress/Results/Core Measures Results/Orders Lab Results Laboratory Tests Test 04/11/20 21:30 04/11/20 22:55 Range/Units White Blood Count 10.9 4.3-11.0 10^3/uL Red Blood Count 4.31 4.30-5.52 10^6/uL Hemoglobin 12.8 L 13.3-17.7 g/dL Hematocrit 39 L 40-54 % Mean Corpuscular Volume 91 80-99 fL Mean Corpuscular Hemoglobin 30 25-34 pg Mean Corpuscular Hemoglobin Concent 33 32-36 g/dL Red Cell Distribution Width 13.2 10.0-14.5 % Platelet Count 216 130-400 10^3/uL Mean Platelet Volume 9.9 9.0-12.2 fL Immature Granulocyte % (Auto) 0 % Neutrophils (%) (Auto) 68 42-75 % Lymphocytes (%) (Auto) 26 12-44 % Monocytes (%) (Auto) 5 0-12 % Eosinophils (%) (Auto) 1 0-10 % Basophils (%) (Auto) 0 0-10 % Neutrophils # (Auto) 7.4 1.8-7.8 10^3/uL Lymphocytes # (Auto) 2.8 1.0-4.0 10^3/uL Monocytes # (Auto) 0.6 0.0-1.0 10^3/uL Eosinophils # (Auto) 0.1 0.0-0.3 10^3/uL Basophils # (Auto) 0.0 0.0-0.1 10^3/uL Immature Granulocyte # (Auto) 0.0 0.0-0.1 10^3/uL Prothrombin Time 12.9 12.2-14.7 SEC INR Comment 0.9 0.8-1.4 Activated Partial Thromboplast Time 30 24-35 SEC Sodium Level 140 135-145 MMOL/L Potassium Level 4.4 3.6-5.0 MMOL/L Chloride Level 102 98-107 MMOL/L Carbon Dioxide Level 25 21-32 MMOL/L Anion Gap 13 5-14 MMOL/L Blood Urea Nitrogen 34 H 7-18 MG/DL Creatinine 1.94 H 0.60-1.30 MG/DL Estimat Glomerular Filtration Rate 33 BUN/Creatinine Ratio 18 Glucose Level 133 H 70-105 MG/DL Calcium Level 9.3 8.5-10.1 MG/DL Corrected Calcium 9.6 8.5-10.1 MG/DL Magnesium Level 2.0 1.6-2.4 MG/DL Total Bilirubin 1.9 H 0.1-1.0 MG/DL Aspartate Amino Transf (AST/SGOT) 84 H 5-34 U/L Alanine Aminotransferase (ALT/SGPT) 116 H 0-55 U/L Alkaline Phosphatase 159 H 40-136 U/L Myoglobin 99.0 H 10.0-92.0 NG/ML Troponin I 0.031 H <0.028 NG/ML Total Protein 7.1 6.4-8.2 GM/DL Albumin 3.6 3.2-4.5 GM/DL Lipase 50 8-78 U/L Urine Color YELLOW Urine Clarity CLEAR Urine pH 5.0 5-9 Urine Specific [place] 1.020 1.016-1.022 Urine Protein NEGATIVE NEGATIVE Urine Glucose (UA) NEGATIVE NEGATIVE Urine Ketones NEGATIVE NEGATIVE Urine Nitrite NEGATIVE NEGATIVE Urine Bilirubin NEGATIVE NEGATIVE Urine Urobilinogen 0.2 < = 1.0 MG/DL Urine Leukocyte Esterase NEGATIVE NEGATIVE Urine RBC (Auto) NEGATIVE NEGATIVE Urine RBC RARE /HPF Urine WBC NONE /HPF Urine Squamous Epithelial Cells 0-2 /HPF Urine Crystals NONE /LPF Urine Bacteria TRACE /HPF Urine Casts PRESENT /LPF Urine Hyaline Casts 2-5 H /LPF Urine Mucus SMALL H /LPF Urine Culture Indicated NO My Orders Orders - KANE SANDOVAL Cbc With Automated Diff (04/11/20 21:) Magnesium (04/11/20 21:27) Chest 1 View, Ap/Pa Only (04/11/20 21:27) Ekg Tracing (04/11/20 21:27) Comprehensive Metabolic Panel (04/11/20 21:27) Myoglobin Serum (04/11/20 21:) Protime With Inr (04/11/20 21:) Partial Thromboplastin Time (04/11/20 21:27) O2 (04/11/20 21:27) Monitor-Rhythm Ecg Trace Only (04/11/20 21:) Lipid Panel (04/12/20 06:00) Ed Iv/Invasive Line Start (04/11/20 21:27) Morphine Injection (Morphine Injection (04/11/20 21:27) Famotidine Injection (Pepcid Injection) (04/11/20 21:30) Ua Culture If Indicated (04/11/20 21:27) Ed Iv/Invasive Line Start (04/11/20 21:27) Ns Iv 1000 Ml (Sodium Chloride 0.9%) (04/11/20 21:30) Ondansetron Injection (Zofran Injectio (04/11/20 21:45) Lipase (04/11/20 21:30) Troponin I (04/11/20 21:30) Ct Abdomen/Pelvis Wo (04/11/20 22:21) Medications Given in ED Current Medications Medications Dose Ordered Sig/Lj Route Start Time Stop Time Status Last Admin Dose Admin Famotidine 20 mg ONCE ONCE IVP 04/11/20 21:30 04/11/20 21:31 DC 04/11/20 21:43 20 MG Ondansetron HCl 8 mg ONCE ONCE IVP 04/11/20 21:45 04/11/20 21:46 DC 04/11/20 21:43 8 MG Vital Signs/I&O 04/11/20 21:21 Temp 35.8 Pulse 66 Resp 17 B/P (MAP) 135/75 (95) O2 Delivery Room Air Blood Pressure Mean: 95 Progress Progress Note #1: Time: 21:32 Progress Note He has fairly active bowel sounds so bowel obstruction/obstipation versus atypical angina versus pancreatitis versus less likely gastritis/PUD. Maalox and antacids did not seem to help. Plan to give him some Pepcid and morphine as well as ondansetron for his nausea. A liter of fluids and get a CT of his abdomen pelvis. He is on Eliquis so mesenteric ischemia is a possibility but a large embolus is less likely. Progress Note #2: Time: 23:03 Progress Note The patient's symptoms are significantly improved and although he still has some pain and he says it is very tolerable and does not want anything else right now. He is okay was staying in talking to the surgeon. Dr. Cole is on his way and should be here in the next hour after attending to another patient. Progress Note #3: Time: 00:22 Progress Note After visiting with Dr. Cole the patient agrees he wants to have the surgery done but he says he cannot stay overnight and does not want surgery done le[place] rrow. He says he has too many things to time. We discussed return precautions and will provide him with a take-home pack of hydrocodone. We'll encourage him to use omeprazole, altered his diet and use hydrocodone to control his symptoms. We have explained to him the gravity of not taking care of his gallbladder. Initial ECG Impression Date: Apr 11, 2020 Initial ECG Impression Time: 21:37 Initial ECG Rate: 70 Initial ECG Rhythm: Normal Sinus Initial ECG Intervals: Normal Initial ECG Impression: Nonspecific Changes Initial ECG Comparisson: Unchanged Comment Atrial ventricular dual paced complexes without clinically relevant ST changes. Diagnostic Imaging Diagonstic Imaging: Xray Plain Films/CT/US/NM/MRI: chest Reviewed: Reviewed by Me Diagonstic Imaging: CT Plain Films/CT/US/NM/MRI: abdomen, pelvis Comments Cholelithiasis with somewhat distended gallbladder and normal common duct. Urinary bladder stones. Diverticulosis without diverticulitis. Reviewed: Reviewed [place] Hawk Study, Reviewed by Me Departure Impression Primary Impression: Cholecystitis, acute with cholelithiasis Qualified Codes: K80.00 - Calculus of gallbladder with acute cholecystitis without obstruction Disposition: HOME, SELF-CARE Condition: Stable Departure-Patient Inst. Decision time for Depature: 00:23 Referrals: ANA COLE RICHARD A DO (PCP/Family) Primary Care Physician Patient Instructions: Gallstones (DC), Gallbladder Diet, Cholecystectomy (DC) Add. Discharge Instructions: I encourage you to call Dr. Cole on Tuesday and set up a follow-up appointment. If you're having nausea take one tablet of ondansetron under the tongue every 6 hours as necessary. If you're having pain use Tylenol 650 mg every 8 hours as necessary. Hydrocodone one tablet every 6 hours as necessary for breakthrough pain. Avoid greasy, fatty, red meats. High-fiber diet is encouraged. Omeprazole 40 mg daily. Promptly return to the nearest ER should you have intractable pain, nausea or fever. All discharge instructions reviewed with patient and/or family. Voiced understanding. Scripts Ondansetron (Ondansetron Odt) 4 Mg Tab.rapdis 4 MG PO Q6H PRN for NAUSEA/VOMITING, #15 TAB 0 Refills Prov: KANE SANDOVAL 04/12/20 Hydrocodone/Acetaminophen (Hydrocodone-Acetamin 5-325 mg) 1 Each Tablet 1 EACH PO Q6H PRN for PAIN-BREAKTHROUGH, #20 TAB 0 Refills Prov: KANE SANDOVAL 04/12/20 Copy Copies To 1: ANA COLE TITUS J Apr 11, 2020 21:32
[2020-04-11 21:42] LABS: BASOPHILS % (AUTO) 0 % (0-10); EOSINOPHILS # (AUTO) 0.1 10^3/uL (0.0-0.3); EOSINOPHILS % (AUTO) 1 % (0-10); HEMATOCRIT 39 % (40-54); HEMOGLOBIN 12.8 g/dL (13.3-17.7); LYMPHOCYTES # (AUTO) 2.8 10^3/uL (1.0-4.0); LYMPHOCYTES % (AUTO) 26 % (12-44); MEAN CORPUSCULAR HEMOGLOBIN 30 pg (25-34); MEAN CORPUSCULAR HGB CONC 33 g/dL (32-36); MEAN CORPUSCULAR VOLUME 91 fL (80-99); MEAN PLATELET VOLUME 9.9 fL (9.0-12.2); MONOCYTES # (AUTO) 0.6 10^3/uL (0.0-1.0); MONOCYTES % (AUTO) 5 % (0-12); NEUTROPHILS # (AUTO) 7.4 10^3/uL (1.8-7.8); NEUTROPHILS % (AUTO) 68 % (42-75); PLATELET COUNT 216 10^3/uL (130-400); WHITE BLOOD COUNT 10.9 10^3/uL (4.3-11.0)
[2020-04-11] MEDS ORDERED: ONDANSETRON 4 MG/2 ML (SDV) Z0FRAN IVP ONE (21:45)
[2020-04-11 22:12] LABS: ALBUMIN 3.6 GM/DL (3.2-4.5); BILIRUBIN,TOTAL 1.9 MG/DL (0.1-1.0); CALCIUM 9.3 MG/DL (8.5-10.1); CREATININE SERUM 1.94 MG/DL (0.60-1.30); POTASSIUM 4.4 MMOL/L (3.6-5.0); TOTAL PROTEIN 7.1 GM/DL (6.4-8.2)
[2020-04-11 22:40] LABS: INR 0.9 (0.8-1.4); PROTHROMBIN TIME PATIENT 12.9 SEC (12.2-14.7)
[2020-04-11 23:04] LABS: BILIRUBIN,URINE NEGATIVE (NEGATIVE); CLARITY,URINE CLEAR; COLOR,URINE YELLOW; GLUCOSE, URINE (UA) NEGATIVE (NEGATIVE); KETONES,URINE NEGATIVE (NEGATIVE); LEUKOCYTE ESTERASE ,URINE NEGATIVE (NEGATIVE); NITRITE,URINE NEGATIVE (NEGATIVE); PROTEIN,URINE NEGATIVE (NEGATIVE)
[2020-04-11 23:13] LABS: BACTERIA,URINE TRACE /HPF; RBC,URINE RARE /HPF; SQUAMOUS EPITHELIAL CELL,UR 0-2 /HPF
--- NOTE | 2020-04-12 00:02 | Consultation - Surgery ---
History of Present Illness History of Present Illness Patient Consulted On(mode/time) 04/11/20 23:49 Time Seen by Provider: 23:49 History of Present Illness Surgery asked to consult regarding abdominal pain and cholelithiasis. HPI per ED: Chief Complaint: Abdominal/GI Problems Stated Complaint: POST CARDIAC PROCEDURE/ABD PAIN/NAUSEA Nursing Triage Note: PT TO ROOM 06 VIA W/C WITH C/O ABD PAIN, NAUSEA, AND WEAKNESS. Initial Comments The patient presents to the ER by private conveyance from home with chief complaint of epigastric abdominal pain sharp, sudden onset, unrelenting 10 out of 10 pain starting about 4 hours prior to arrival. He tried simethicone, Maalox, omeprazole with no relief. He took a hydrocodone he had left over from a dentist appointment with no relief. He had a bowel movement couple hours ago that was very hard to pass, borderline constipation. He is using some rfjm-ipv-[id number] laxatives. He's having some nausea but no vomiting. No fevers chills rash cough or shortness of air. 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 He says this pain is unlike anything he's had before. No intra-abdominal surgeries other than a umbilical hernia repair. When I saw pt he stated pain was better; "maybe a 2". Pt states he has never had pain like this before; started on right side and radiated across to the left. He was worried because he just had pacemaker "shocked back to rhythm" and wanted to make sure his pain was not from his heart. He states he has also felt a little weak lately. Allergies and Home Medications Allergies Coded Allergies: warfarin sodium (Verified Allergy, Mild, RASH, 10/04/17) amiodarone (Verified Adverse Reaction, Unknown, itching skin, 04/11/20) Home Medications Aspirin 81 Mg Chew, 81 MG PO DAILY, (Reported) Atorvastatin Calcium 20 Mg Tablet, 20 MG PO HS, (Reported) Clopidogrel Bisulfate 75 Mg Tablet, 75 MG PO DAILY, (Reported) Doxazosin Mesylate 4 Mg Tablet, 2 MG PO HS TAKE 1/2 OF 4MG TAB AT BEDTIME Prescribed by: NARDA CAAL on 10/05/17 1013 Dutasteride 0.5 Mg Cap, 0.5 MG PO HS, (Reported) Gluc HCl/Csa/Khadar Hy/Hyalur AC 1 Each Capsule, 1 EACH PO BID, (Reported) Hydrocodone/Acetaminophen 1 Each Tablet, 1 EACH PO Q6H PRN for PAIN-BREAKTHROUGH Prescribed by: KANE SANDOVAL on 04/12/2025 Losartan Potassium 25 Mg Tablet, 25 MG PO DAILY, (Reported) Losartan Potassium 50 Mg Tablet, 50 MG PO HS, (Reported) Multivitamin 1 Each Tablet, 1 EACH PO DAILY, (Reported) Ondansetron 4 Mg Tab.rapdis, 4 MG PO Q6H PRN for NAUSEA/VOMITING Prescribed by: KANE SANDOVAL on 04/12/2024 Patient Home Medication List Home Medication List Reviewed: Yes Past Rltipae-Hraswb-Kkazrf Hx Patient Social History Alcohol Use: Denies Use Recreational Drug Use: No Smoking Status: Never a Smoker 2nd Hand Smoke Exposure: No Recent Foreign Travel: No Contact w/Someone Who Travel: No Recent Infectious Disease Expo: No Recent Hopitalizations: No Immunizations Up To Date Tetanus Booster (TDap): Unknown Seasonal Allergies Seasonal Allergies: No Surgeries History of Surgeries: Yes (pacemaker, abdominal hernia surgery) Surgeries: Abdominal, CABG, Coronary Stent, Orthopedic, Pacemaker Respiratory History of Respiratory Disorde: No Cardiovascular History of Cardiac Disorders: Yes (PACEMAKER for treatment of bradycardic syndrome) Cardiac Disorders: Coronary Artery Disease, Hypertension Neurological History of Neurological Disord: No Genitourinary History of Genitourinary Disor: Yes Genitourinary Disorders: Benign Prostatic Hyperpl Gastrointestinal History of Gastrointestinal Di: No Musculoskeletal History of Musculoskeletal Dis: Yes Musculoskeletal Disorders: Arthritis Endocrine History of Endocrine Disorders: No HEENT History of HEENT Disorders: No Cancer History of Cancer: No Psychosocial History of Psychiatric Problem: No Integumentary History of Skin or Integumenta: No Family Medical History Significant Family History: Heart Disease, Cancer, Hypertension Family Medial History: Colon cancer 19 FATHER (unknown cancer ) 19 MOTHER (unknown cancer) FH: heart disease Heart di Hypertension G8 BROTHER Review of Systems-General Constitutional: malaise, weakness EENTM: No blurred vision, No double vision, No mouth pain, No mouth swelling, No epistaxis Respiratory: No cough, No dyspnea on exertion, No hemoptysis, No short of breath Cardiovascular: chest pain, Hx of Intervention, palpitations; No syncope Gastrointestinal: abdominal pain; No hematemesis; nausea; No vomiting Genitourinary: No dysuria, No frequency, No hematuria Musculoskeletal: joint pain, joint swelling, muscle pain, muscle stiffness Skin: No change in color, No change in hair/nails, No lesions Psychiatric/Neurological: Denies Anxiety, Denies Seizure, Denies Tremors Other pt states he has a hx of abnormal bleeding and bruising because of the blood thinners he takes Physical Exam-General Problems Physical Exam Vital Signs Vital Signs - First Documented 04/11/20 21:21 Temp 35.8 Pulse 66 Resp 17 B/P (MAP) 135/75 (95) O2 Delivery Room Air Capillary Refill : Less Than 3 Seconds General Appearance: no apparent distress, obese Eyes: Bilateral Eye PERRL, Bilateral Eye EOMI HEENT: pharynx normal, scleral icterus (R), scleral icterus (L); No pharyngeal erythema Neck: non-tender, supple Respiratory: lungs clear, normal breath sounds, no respiratory distress, no accessory muscle use Cardiovascular: regular rate, rhythm, no murmur Gastrointestinal: soft, no organomegaly, no pulsatile mass, tenderness (RUQ with deep palpation) Back: no CVA tenderness, no vertebral tenderness Extremities: normal inspection, no pedal edema, no calf tenderness, normal capillary refill Neurologic/Psychiatric: staffing coordinator II-XII nml as tested, no motor/sensory deficits, alert, normal mood/affect, oriented x 3 Skin: warm/dry, jaundice (??in face and upper body) Lymphatic: no adenopathy (neck, axilla or groin) Data Review Labs Laboratory Tests 04/11/20 21:30: White Blood Count 10.9, Red Blood Count 4.31, Hemoglobin 12.8L, Hematocrit 39L, Mean Corpuscular Volume 91, Mean Corpuscular Hemoglobin 30, Mean Corpuscular Hemoglobin Concent 33, Red Cell Distribution Width 13.2, Platelet Count 216, Mean Platelet Volume 9.9, Immature Granulocyte % (Auto) 0, Neutrophils (%) (Auto) 68, Lymphocytes (%) (Auto) 26, Monocytes (%) (Auto) 5, Eosinophils (%) (Auto) 1, Basophils (%) (Auto) 0, Neutrophils # (Auto) 7.4, Lymphocytes # (Auto) 2.8, Monocytes # (Auto) 0.6, Eosinophils # (Auto) 0.1, Basophils # (Auto) 0.0, Immature Granulocyte # (Auto) 0.0, Prothrombin Time 12.9, INR Comment 0.9, Activated Partial Thromboplast Time 30, Sodium Level 140, Potassium Level 4.4, Chloride Level 102, Carbon Dioxide Level 25, Anion Gap 13, Blood Urea Nitrogen 34H, Creatinine 1.94H, Estimat Glomerular Filtration Rate 33, BUN/Creatinine Ratio 18, Glucose Level 133H, Calcium Level 9.3, Corrected Calcium 9.6, Magnesium Level 2.0, Total Bilirubin 1.9H, Aspartate Amino Transf (AST/SGOT) 84H , Alanine Aminotransferase (ALT/SGPT) 116H, Alkaline Phosphatase 159H, Myoglobin 99.0H, Troponin I 0.031H, Total Protein 7.1, Albumin 3.6, Lipase 50 04/11/20 22:55: Urine Color YELLOW, Urine Clarity CLEAR, Urine pH 5.0, Urine Specific [place] 1.020, Urine Protein NEGATIVE, Urine Glucose (UA) NEGATIVE, Urine Ketones NEGATIVE, Urine Nitrite NEGATIVE, Urine Bilirubin NEGATIVE, Urine Urobilinogen 0.2, Urine Leukocyte Esterase NEGATIVE, Urine RBC (Auto) NEGATIVE, Urine RBC RARE, Urine WBC NONE, Urine Squamous Epithelial Cells 0-2, Urine Crystals NONE, Urine Bacteria TRACE, Urine Casts PRESENT, Urine Hyaline Casts 2-5H, Urine Mucus SMALLH, Urine Culture Indicated NO Assessment/Plan Assessment/Plan Assessment/Plan Cholelithiasis with probable cholecystitis RUQ Pain most likely secondary to above Hyperbilirubinemia CAD, [place] Pt's pain is most likely being caused by the stones in his gallbladder; in fact the gallbladder looks very distended on CT and his bilirubin is elevated. However, there does not appear to be any inflammatory changes or fluid around th e gallbladder. I think it is reasonable to take out his gallbladder and suggested this to him. In fact, we discussed risks and complication of surgery not limited to pain, bleeding, infection, scar, damage to bowel or bile duct and need for further procedure. 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 He wants to go home and contact my office on Tuesday. I told him if pain comes back to return to the ER. ANA COLE DO Apr 12, 2020 00:02
[2020-04-12] MEDS ORDERED: ACHD5005 PO (00:25)
[2020-04-12] MEDS ORDERED: ONDA4TAB11 PO (00:25)
[2020-04-12] MEDS ORDERED: RX-ONDANSETRON 4 MG ODT (ZOFRAN) PPK #4 PO STA (00:27)
[2020-04-12] MEDS ORDERED: RX-HYDROCODONE/APAP 5/325 MG #4 TAB PK PO PRN (00:30)
[2020-04-12 00:40] VITALS: BP 144/76
--- NOTE | 2020-04-12 07:15 | Diagnostic Imaging Report ---
PROCEDURE: CT abdomen and pelvis without contrast. TECHNIQUE: Multiple contiguous axial images were obtained through the abdomen and pelvis without the use of intravenous contrast. Auto Exposure Controls were utilized during the CT exam to meet ALARA standards for radiation dose reduction. INDICATION: Epigastric pain. The gallbladder is distended measuring about 11 cm long axis with maximal transverse dimension of 6 cm, multiple stones within its lumen. There is no intra or extrahepatic bile duct dilatation. No radiopaque stones along the course of the common bile duct. Spleen, adrenals and pancreas unremarkable. There is low-density exophytic foci off the kidney. The kidneys bilaterally likely cystic but their evaluation limited by the absence of contrast media. The unopacified urinary bladder unremarkable. The appendix normal. There is noninflamed diverticulosis of the sigmoid. The aortoiliac vessels calcified but nonaneurysmal. Spleen, adrenals and pancreas negative. No ileus or bowel obstruction. No free air. Pelvic detail limited by artifact from bilateral hip replacements. No acute appearing bony pathology. The lung bases nonacute. IMPRESSION: Stone containing distended gallbladder. Gallbladder ultrasound suggested as cholecystitis could not be excluded. No biliary dilatation. Cystic-appearing renal nodules without hydronephrosis, noninflamed sigmoid diverticulosis. Dictated by: Dictated on workstation # [id number]
--- NOTE | 2020-04-12 08:25 | Diagnostic Imaging Report ---
INDICATION: Epigastric pain. Compared 09/06/2018 FINDINGS: Sternal wires midline. Pacemaker device overlies the left chest. The heart is enlarged but no overt failure pattern or emerita vascular congestion. No infiltrate or edema. IMPRESSION: Prominence of the cardiac silhouette, otherwise unremarkable. Dictated by: Dictated on workstation # [id number]
== END 2020-04-12 00:40 | disposition home or self-care (01) ==
LOC: EDUNIT# 21:07 → ER 21:08
DX: K80.00 Calculus of gallbladder with acute cholecystitis without obstruction (principal); I10 Essential (primary) hypertension; N40.0 Benign prostatic hyperplasia without lower urinary tract symptoms; Z82.49 Family history of ischemic heart disease and other diseases of the circulatory system; Z80.0 Family history of malignant neoplasm of digestive organs; Z95.1 Presence of aortocoronary bypass graft; Z95.0 Presence of cardiac pacemaker; Z95.5 Presence of coronary angioplasty implant and graft; Z88.8 Allergy status to other drugs, medicaments and biological substances; Z79.82 Long term (current) use of aspirin
CPT/HCPCS: 36415; 71045; 74176; 80053; 81000; 83690; 83735; 83874; 84484; 85025; 85610; 85730; 93041

== ENCOUNTER 2020-04-12 11:07 | Inpatient (IN) | payer MEDICARE ==
[~2020-04-12] VITALS: Ht 177.8 cm; Wt 117.5 kg
[~2020-04-12 11:07] MED LIST changes: +ACHD5005 PO; +ONDA4TAB11 PO
[2020-04-12] MEDS ORDERED: ONDANSETRON 4 MG/2 ML (SDV) Z0FRAN IVP ONE (11:45)
[2020-04-12] MEDS ORDERED: fentaNYL INJECTION 100 MCG/2 ML AMP IVP ONE ×2 (11:45→15:00)
[2020-04-12 11:51] LABS: BASOPHILS % (AUTO) 0 % (0-10); EOSINOPHILS % (AUTO) 0 % (0-10); HEMATOCRIT 41 % (40-54); HEMOGLOBIN 12.7 g/dL (13.3-17.7); LYMPHOCYTES # (AUTO) 2.9 10^3/uL (1.0-4.0); LYMPHOCYTES % (AUTO) 16 % (12-44); MEAN CORPUSCULAR HEMOGLOBIN 30 pg (25-34); MEAN CORPUSCULAR HGB CONC 31 g/dL (32-36); MEAN CORPUSCULAR VOLUME 96 fL (80-99); MEAN PLATELET VOLUME 9.5 fL (9.0-12.2); MONOCYTES # (AUTO) 1.4 10^3/uL (0.0-1.0); MONOCYTES % (AUTO) 8 % (0-12); NEUTROPHILS # (AUTO) 13.8 10^3/uL (1.8-7.8); NEUTROPHILS % (AUTO) 76 % (42-75); PLATELET COUNT 203 10^3/uL (130-400); WHITE BLOOD COUNT 18.2 10^3/uL (4.3-11.0)
[2020-04-12 11:55] LABS: ALBUMIN 3.7 GM/DL (3.2-4.5); POTASSIUM 4.5 MMOL/L (3.6-5.0)
[2020-04-12 11:57] LABS: CALCIUM 8.9 MG/DL (8.5-10.1)
[2020-04-12 12:00] LABS: BILIRUBIN,TOTAL 3.1 MG/DL (0.1-1.0)
[2020-04-12 12:02] LABS: CREATININE SERUM 1.72 MG/DL (0.60-1.30)
--- NOTE | 2020-04-12 12:02 | ED Abdominal Pain ---
General Chief Complaint: Abdominal/GI Problems Stated Complaint: ABD PAIN Nursing Triage Note: pt presents to ed with complaints of mid abdominal pain that radiates from one side to another. pt reports he was seen in ed early this morning and told he needed his gallbladder out. pt reports he had to finish stuff at home so he left. Pt reports pain and nausea have increased since he left ed. 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 Was seen here last night diagnosed with cholecystitis but he did not want to have a cholecystectomy because he had several things to take care of at home. He went home and took care of them and comes back this morning because of worsening pain and nausea. History of BPH, HTN, HLP, chronic left bundle branch block, atrial fibrillation, coronary artery disease, permanent pacemaker/defibrillator placement. History of aortic stenosis or sclerosis, on Eliquis. Last dose was yesterday at 4 PM. Has not had anything to eat today. Patient's son Jim Rosas is a physician in [place] phone #[phone]. Timing/Duration: 2-3 Days Severity/Quality: Moderate Radiation: No Radiation Activities at Onset: None Associated Symptoms: Nausea/Vomiting Allergies and Home Medications Allergies Coded Allergies: warfarin sodium (Verified Allergy, Mild, RASH, 10/04/17) amiodarone (Verified Adverse Reaction, Unknown, itching skin, 04/11/20) Home Medications Aspirin 81 Mg Chew, 81 MG PO DAILY, (Reported) Atorvastatin Calcium 20 Mg Tablet, 20 MG PO HS, (Reported) Clopidogrel Bisulfate 75 Mg Tablet, 75 MG PO DAILY, (Reported) Doxazosin Mesylate 4 Mg Tablet, 2 MG PO HS TAKE 1/2 OF 4MG TAB AT BEDTIME Prescribed by: NARDA CAAL on 10/05/17 1013 Dutasteride 0.5 Mg Cap, 0.5 MG PO HS, (Reported) Gluc HCl/Csa/Khadar Hy/Hyalur AC 1 Each Capsule, 1 EACH PO BID, (Reported) Hydrocodone/Acetaminophen 1 Each Tablet, 1 EACH PO Q6H PRN for PAIN-BREAKTHROUGH Prescribed by: KANE SANDOVAL on 04/12/20 0026 Losartan Potassium 25 Mg Tablet, 25 MG PO DAILY, (Reported) Losartan Potassium 50 Mg Tablet, 50 MG PO HS, (Reported) Multivitamin 1 Each Tablet, 1 EACH PO DAILY, (Reported) Ondansetron 4 Mg Tab.rapdis, 4 MG PO Q6H PRN for NAUSEA/VOMITING Prescribed by: KANE SANDOVAL on 04/12/20 0025 Patient Home Medication List Home Medication List Reviewed: Yes Review of Systems Review of Systems Constitutional: see HPI EENTM: No Symptoms Reported Respiratory: No Symptoms Reported Cardiovascular: No Symptoms Reported Gastrointestinal: See HPI, Abdominal Pain, Nausea Genitourinary: No Symptoms Reported Musculoskeletal: no symptoms reported Skin: no symptoms reported Psychiatric/Neurological: No Symptoms Reported Endocrine: No Symptoms Reported Hematologic/Lymphatic: No Symptoms Reported Past Pgkfpeg-Jxweyu-Gmuchv Hx Patient Social History Alcohol Use: Rarely Uses Recreational Drug Use: No Smoking Status: Never a Smoker 2nd Hand Smoke Exposure: No Recent Foreign Travel: No Contact w/Someone Who Travel: No Recent Infectious Disease Expo: No Recent Hopitalizations: No Physical Abuse: No Sexual Abuse: No Mistreated: No Fear: No Immunizations Up To Date Tetanus Booster (TDap): Unknown Seasonal Allergies Seasonal Allergies: No Past Medical History Surgeries: Yes (pacemaker, abdominal hernia surgery) Abdominal, CABG, Coronary Stent, Orthopedic, Pacemaker Respiratory: No 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) Coronary Artery Disease, Hypertension Neurological: No Genitourinary: Yes Benign Prostatic Hyperpl Gastrointestinal: No Musculoskeletal: Yes Arthritis Endocrine: No HEENT: No Cancer: No Psychosocial: No Integumentary: No Family Medical History Colon cancer 19 FATHER (unknown cancer ) 19 MOTHER (unknown cancer) FH: heart disease Heart di Hypertension G8 BROTHER Heart Disease, Cancer, Hypertension Physical Exam Vital Signs Vital Signs - First Documented 04/12/20 11:45 Temp 36.8 Pulse 71 Resp 16 B/P (MAP) 137/103 (114) Pulse Ox 97 Capillary Refill : Less Than 3 Seconds Height/Weight/BMI Height: 5'10.00" Weight: 263lbs. 5.0oz. [id number]; 36.00 BMI Method:Stated General Appearance: WD/WN, no apparent distress, obese HEENT: PERRL/EOMI, normal ENT inspection Respiratory: normal breath sounds, no respiratory distress, no accessory muscle use Gastrointestinal: normal bowel sounds, soft, tenderness Extremities: normal range of motion, non-tender Neurologic/Psychiatric: alert, normal mood/affect, oriented x 3 Skin: normal color, warm/dry Progress/Results/Core Measures Results/Orders Lab Results Laboratory Tests Test 04/12/20 11:30 Range/Units White Blood Count 18.2 H 4.3-11.0 10^3/uL Red Blood Count 4.24 L 4.30-5.52 10^6/uL Hemoglobin 12.7 L 13.3-17.7 g/dL Hematocrit 41 40-54 % Mean Corpuscular Volume 96 80-99 fL Mean Corpuscular Hemoglobin 30 25-34 pg Mean Corpuscular Hemoglobin Concent 31 L 32-36 g/dL Red Cell Distribution Width 13.5 10.0-14.5 % Platelet Count 203 130-400 10^3/uL Mean Platelet Volume 9.5 9.0-12.2 fL Immature Granulocyte % (Auto) 0 % Neutrophils (%) (Auto) 76 H 42-75 % Lymphocytes (%) (Auto) 16 12-44 % Monocytes (%) (Auto) 8 0-12 % Eosinophils (%) (Auto) 0 0-10 % Basophils (%) (Auto) 0 0-10 % Neutrophils # (Auto) 13.8 H 1.8-7.8 10^3/uL Lymphocytes # (Auto) 2.9 1.0-4.0 10^3/uL Monocytes # (Auto) 1.4 H 0.0-1.0 10^3/uL Eosinophils # (Auto) 0.0 0.0-0.3 10^3/uL Basophils # (Auto) 0.0 0.0-0.1 10^3/uL Immature Granulocyte # (Auto) 0.1 0.0-0.1 10^3/uL Neutrophils % (Manual) 75 % Lymphocytes % (Manual) 17 % Monocytes % (Manual) 8 % Poikilocytosis P Stomatocytes SLIGHT Blood Morphology Comment NA Sodium Level 140 135-145 MMOL/L Potassium Level 4.5 3.6-5.0 MMOL/L Chloride Level 104 98-107 MMOL/L Carbon Dioxide Level 22 21-32 MMOL/L Anion Gap 14 5-14 MMOL/L Blood Urea Nitrogen 30 H 7-18 MG/DL Creatinine 1.72 H 0.60-1.30 MG/DL Estimat Glomerular Filtration Rate 38 BUN/Creatinine Ratio 17 Glucose Level 163 H 70-105 MG/DL Calcium Level 8.9 8.5-10.1 MG/DL Corrected Calcium 9.1 8.5-10.1 MG/DL Total Bilirubin 3.1 H 0.1-1.0 MG/DL Aspartate Amino Transf (AST/SGOT) 76 H 5-34 U/L Alanine Aminotransferase (ALT/SGPT) 112 H 0-55 U/L Alkaline Phosphatase 156 H 40-136 U/L Total Protein 7.0 6.4-8.2 GM/DL Albumin 3.7 3.2-4.5 GM/DL Lipase 21 8-78 U/L My Orders Orders - LAURA SAAVEDRA APRN Cbc With Automated Diff (04/12/20 11:45) Comprehensive Metabolic Panel (04/12/20 11:45) Lipase (04/12/20 11:45) Ed Iv/Invasive Line Start (04/12/20 11:45) Ondansetron Injection (Zofran Injectio (04/12/20 11:45) Fentanyl Injection (Sublimaze Injection (04/12/20 11:45) Covid 19 Inhouse Test (04/12/20 11:47) Manual Differential (04/12/20 11:30) Medications Given in ED Current Medications Medications Dose Ordered Sig/Lj Route Start Time Stop Time Status Last Admin Dose Admin Fentanyl Citrate 50 mcg ONCE ONCE IVP 04/12/20 11:45 04/12/20 11:47 DC 04/12/20 12:34 50 MCG Ondansetron HCl 4 mg ONCE ONCE IVP 04/12/20 11:45 04/12/20 11:47 DC 04/12/20 12:34 4 MG Vital Signs/I&O 04/12/20 11:45 Temp 36.8 Pulse 71 Resp 16 B/P (MAP) 137/103 (114) Pulse Ox 97 Blood Pressure Mean: 114 Departure Communication (Admissions) I spoke with Dr. Zamora on-call for surgery, we will keep the patient here and he will evaluate the patient in the emergency room with tentative plan for cholecystectomy today. Impression Primary Impression: Cholecystitis, acute with cholelithiasis Disposition: ADMITTED INPATIENT Condition: Stable Admissions Decision to Admit Reason: Admit from ER (General) Decision to Admit/Date: Apr 12, 2020 Time/Decision to Admit Time: 12:21 Departure-Patient Inst. Referrals: JENNIFER ROBBINS DO (PCP/Family) Primary Care Physician LAURA SAAVEDRA APRN Apr 12, 2020 12:02
[2020-04-12] MEDS ORDERED: cefTRIAXone FOR IV USE 1,000 MG in WATER (STERILE) FOR INJECTION 10 ML IV ONE (12:15)
[2020-04-12] MEDS ORDERED: metroNIDAZOLE 500MG/100ML IVPB 100 ML IV ONE (12:15)
[2020-04-12 12:19] LABS: LYMPHOCYTES % (MANUAL) 17 %; MONOCYTES % (MANUAL) 8 %; NEUTROPHILS % (MANUAL) 75 %; POIKILOCYTOSIS P; STOMATOCYTES SLIGHT
--- NOTE | 2020-04-12 12:58 | NUR ---
kaley in room talking to pt at this time.
--- NOTE | 2020-04-12 13:58 | History & Physical-Surgical ---
History of Present Illness History of Present Illness Reason for visit/HPI Surgery asked to admit regarding Acute Cholecystitis. HPI per ED: pt presents to ed with complaints of mid abdominal pain that radiates from one side to another. pt reports he was seen in ed early this morning and told he needed his gallbladder out. pt reports he had to finish stuff at home so he left. Pt reports pain and nausea have increased since he left ed. 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 Was seen here last night diagnosed with cholecystitis but he did not want to have a cholecystectomy because he had several things to take care of at home. He went home and took care of them and comes back this morning because of worsening pain and nausea. History of BPH, HTN, HLP, chronic left bundle branch block, atrial fibrillation, coronary artery disease, permanent pacemaker/defibrillator placement. History of aortic stenosis or sclerosis, on Eliquis. Last dose was yesterday at 4 PM. Has not had anything to eat today. Patient's son Jim Rosas is a physician in [place] phone #[phone]. Timing/Duration: 2-3 Days Severity/Quality: Moderate Radiation: No Radiation Activities at Onset: None Associated Symptoms: Nausea/Vomiting Pt was seen last night, just before midnight and he wanted to go home to "get some things in order". He states the pain got worse and the nausea and vomiting also got worse. He states he is ready to get his gallbladder taken out. Date of Admission 04/12/2020 Time Seen by a Provider: 11:37 I consulted on this patient on 04/12/20 13:52 Attending Physician Admitting Physician Tejinder Covarrubias DO Consult Allergies and Home Medications Allergies Coded Allergies: warfarin sodium (Verified Allergy, Mild, RASH, 10/04/17) amiodarone (Verified Adverse Reaction, Unknown, itching skin, 04/11/20) Home Medications Aspirin 81 Mg Chew, 81 MG PO DAILY, (Reported) Atorvastatin Calcium 20 Mg Tablet, 20 MG PO HS, (Reported) Clopidogrel Bisulfate 75 Mg Tablet, 75 MG PO DAILY, (Reported) Doxazosin Mesylate 4 Mg Tablet, 2 MG PO HS TAKE 1/2 OF 4MG TAB AT BEDTIME Prescribed by: NARDA CAAL on 10/05/17 1013 Dutasteride 0.5 Mg Cap, 0.5 MG PO HS, (Reported) Gluc HCl/Csa/Khadar Hy/Hyalur AC 1 Each Capsule, 1 EACH PO BID, (Reported) Hydrocodone/Acetaminophen 1 Each Tablet, 1 EACH PO Q6H PRN for PAIN-BREAKTHROUGH Prescribed by: KANE SANDOVAL on 04/12/20 002 Losartan Potassium 25 Mg Tablet, 25 MG PO DAILY, (Reported) Losartan Potassium 50 Mg Tablet, 50 MG PO HS, (Reported) Multivitamin 1 Each Tablet, 1 EACH PO DAILY, (Reported) Ondansetron 4 Mg Tab.rapdis, 4 MG PO Q6H PRN for NAUSEA/VOMITING Prescribed by: KANE SANDOVAL on 04/12/2024 Patient Home Medication List Home Medication List Reviewed: Yes Past Rjrgsjt-Ldcdge-Elzoea Hx Patient Social History Alcohol Use: Rarely Uses Recreational Drug Use: No Smoking Status: Never a Smoker 2nd Hand Smoke Exposure: No Recent Foreign Travel: No Contact w/Someone Who Travel: No Recent Infectious Disease Expo: No Recent Hopitalizations: No Immunizations Up To Date Tetanus Booster (TDap): Unknown Seasonal Allergies Seasonal Allergies: No Surgeries History of Surgeries: Yes (pacemaker, abdominal hernia surgery) Surgeries: Abdominal, CABG, Coronary Stent, Orthopedic, Pacemaker Respiratory History of Respiratory Disorde: No Cardiovascular History of Cardiac Disorders: Yes (PACEMAKER for treatment of bradycardic syndrome) Cardiac Disorders: Coronary Artery Disease, Hypertension Neurological History of Neurological Disord: No Genitourinary History of Genitourinary Disor: Yes Genitourinary Disorders: Benign Prostatic Hyperpl Gastrointestinal History of Gastrointestinal Di: No Musculoskeletal History of Musculoskeletal Dis: Yes Musculoskeletal Disorders: Arthritis Endocrine History of Endocrine Disorders: No HEENT History of HEENT Disorders: No Cancer History of Cancer: No Psychosocial History of Psychiatric Problem: No Integumentary History of Skin or Integumenta: No Family Medical History Significant Family History: Heart Disease, Cancer, Hypertension Family Medial History: Colon cancer 19 FATHER (unknown cancer ) 19 MOTHER (unknown cancer) FH: heart disease Heart di Hypertension G8 BROTHER Review of Systems Constitutional: No fever; malaise, weakness EENTM: No blurred vision, No double vision, No mouth pain, No mouth swelling, No epistaxis Respiratory: No cough, No dyspnea on exertion, No short of breath Cardiovascular: No chest pain; Hx of Intervention; No palpitations Gastrointestinal: abdominal pain; No hematemesis; jaundice, nausea, vomiting Genitourinary: No dysuria, No frequency, No hematuria Musculoskeletal: joint pain, joint swelling, muscle pain, muscle stiffness Skin: No change in color, No change in hair/nails Psychiatric/Neurological: Denies Anxiety, Denies Depressed, Denies Seizure, Denies Tremors HEMATOLOGIC: Pt is on Eliquis for his cardiac conditions. Physical Exam Vital Signs Vital Signs - First Documented 04/12/20 11:45 Temp 36.8 Pulse 71 Resp 16 B/P (MAP) 137/103 (114) Pulse Ox 97 Capillary Refill : Less Than 3 Seconds Height, Weight, BMI Height: 5'10.00" Weight: 263lbs. 5.0oz. 119.335874nl; 36.00 BMI Method:Stated General Appearance: Mild Distress, Obese Eyes: Bilateral Eye PERRL, Bilateral Eye EOMI HEENT: Pharynx Normal; No Moist Mucous Membranes (dry); Scleral Icterus (L), Scleral Icterus (R) Neck: Non Tender, Supple Respiratory: Chest Non Tender, Lungs Clear, Normal Breath Sounds, No Accessory Muscle Use, No Respiratory Distress Cardiovascular: Regular Rate, Rhythm, No Murmur Gastrointestinal: No Organomegaly, No Pulsatile Mass, Soft; No Guarding; Tenderness (right side) Rectal: Deferred Genital/Rectal: Normal Genital Exam Back: No CVA Tenderness, No Vertebral Tenderness Extremity: Non Tender, No Calf Tenderness, No Pedal Edema Neurologic/Psychiatric: Alert, Oriented x3, Normal Mood/Affect, cs associate II-XII Norm as Tested Skin: Warm/Dry, Jaundice Lymphatic: No Adenopathy (neck, axilla, or groin) Data Review Labs Laboratory Tests 04/12/20 11:30: White Blood Count 18.2H, Red Blood Count 4.24L, Hemoglobin 12.7L, Hematocrit 41, Mean Corpuscular Volume 96, Mean Corpuscular Hemoglobin 30, Mean Corpuscular Hemoglobin Concent 31L, Red Cell Distribution Width 13.5, Platelet Count 203, Mean Platelet Volume 9.5, Immature Granulocyte % (Auto) 0, Neutrophils (%) (Auto) 76H, Lymphocytes (%) (Auto) 16, Monocytes (%) (Auto) 8, Eosinophils (%) (Auto) 0, Basophils (%) (Auto) 0, Neutrophils # (Auto) 13.8H, Lymphocytes # ( Auto) 2.9, Monocytes # (Auto) 1.4H, Eosinophils # (Auto) 0.0, Basophils # (Auto) 0.0, Immature Granulocyte # (Auto) 0.1, Neutrophils % (Manual) 75, Lymphocytes % (Manual) 17, Monocytes % (Manual) 8, Poikilocytosis P, Stomatocytes SLIGHT, Blood Morphology Comment NA, Sodium Level 140, Potassium Level 4.5, Chloride Level 104, Carbon Dioxide Level 22, Anion Gap 14, Blood Urea Nitrogen 30H, Creatinine 1.72H, Estimat Glomerular Filtration Rate 38, BUN/Creatinine Ratio 17, Glucose Level 163H, Calcium Level 8.9, Corrected Calcium 9.1, Total Bilir ubin 3.1H, Aspartate Amino Transf (AST/SGOT) 76H, Alanine Aminotransferase (ALT/SGPT) 112H, Alkaline Phosphatase 156H, Total Protein 7.0, Albumin 3.7, Lipase 21 04/12/20 12:04: Coronavirus 2019 ([facility]) Negative Radiology Date of Exam:04/11/20 CT ABDOMEN/PELVIS WO PROCEDURE: CT abdomen and pelvis without contrast. TECHNIQUE: Multiple contiguous axial images were obtained through the abdomen and pelvis without the use of intravenous contrast. Auto Exposure Controls were utilized during the CT exam to meet ALARA standards for radiation dose reduction. INDICATION: Epigastric pain. The gallbladder is distended measuring about 11 cm long axis with maximal transverse dimension of 6 cm, multiple stones within its lumen. There is no intra or extrahepatic bile duct dilatation. No radiopaque stones along the course of the common bile duct. Spleen, adrenals and pancreas unremarkable. There is low-density exophytic foci off the kidney. The kidneys bilaterally likely cystic but their evaluation limited by the absence of contrast media. The unopacified urinary bladder unremarkable. The appendix normal. There is noninflamed diverticulosis of the sigmoid. The aortoiliac vessels calcified but nonaneurysmal. Spleen, adrenals and pancreas negative. No ileus or bowel obstruction. No free air. Pelvic detail limited by artifact from bilateral hip replacements. No acute appearing bony pathology. The lung bases nonacute. IMPRESSION: Stone containing distended gallbladder. Gallbladder ultrasound suggested as cholecystitis could not be excluded. No biliary dilatation. Cystic-appearing renal nodules without hydronephrosis, noninflamed sigmoid diverticulosis. 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 In addition, he will benefit from IV fluids and IV ABX prior to taking him to the OR. His Creatnine is elevated but better than yesterday and this is his normal. Will definitely need a cholangiogram during the case to check on his increasing Bilirubin level. He can be on clears and NPO after midnight. Will also get consent. I spent time and spoke to the pt going over his options and to his son; who is a physician and they both thought waiting until tomorrow was the best option. ANA COLE DO Apr 12, 2020 13:58
--- NOTE | 2020-04-12 15:40 | NUR ---
ANTONETTE GUILLEN admitted to room 418-1, with an admitting diagnosis of CHOLECYSTITIS, on 04/12/20 from ED via BED, accompanied by STAFF.ANTONETTE GUILLEN introduced to surroundings, call light, bed controls, phone, TV, temperature control, lights, meal times, smoking policy, visitor policy, side rail policy, bathrooms and showers. Patient Rights given to patient in the handbook. ANTONETTE GUILLEN verbalizes understanding that [facility] is not responsible for the loss or damage to any personal effects or valuables that are kept in the patients posession during their hospitalization. The following Patient Care Plans were discussed with the PATIENT: Discharge Planning,PAIN, AND KNOWLEDGE. ANTONETTE GUILLEN verbalizes understanding of Interdisciplinary Patient Education. Patient and/or family were informed about the Rapid Response Team and its purpose.
[2020-04-12 15:49] VITALS: BP 120/40
[2020-04-12] MEDS ORDERED: fentaNYL INJECTION 100 MCG/2 ML AMP IV PRN (16:15)
[2020-04-12] MEDS ORDERED: ONDANSETRON 4 MG/2 ML (SDV) Z0FRAN IV PRN (16:15)
[2020-04-12] MEDS: LACTATED RINGERS 1,000 ML IV SCH (16:25)
--- NOTE | 2020-04-12 18:30 | NUR ---
CONSENT SIGNED FOR SURGERY, VERBALIZED UNDERSTANDING, MRSA SWAB DONE, INSTRUCTED TO BE NPO AFTER MIDNIGHT, DENIES PAIN AT THIS TIME, CALL LIGHT WITHIN REACH
[2020-04-12 20:00] VITALS: BP 128/65
[2020-04-12] MEDS: metroNIDAZOLE 500 MG/100 ML IVPB (PRE-MIX) IV SCH (21:06)
--- NOTE | 2020-04-12 22:18 | NUR ---
RECEIVED PHONE CALL FROM ANESTHESIA REQUESTING SOME INFORMATION AND UPDATING PERTAINING PT FOR SURGERY TOMORROW AT 1100.
[2020-04-13] VITALS (10 sets, daily range): BP systolic 114–131; BP diastolic 51–65
[2020-04-13] MEDS: LACTATED RINGERS 1,000 ML IV SCH ×2 (00:11→07:49)
[2020-04-13] MEDS: metroNIDAZOLE 500 MG/100 ML IVPB (PRE-MIX) IV SCH (05:27)
[2020-04-13 07:30] LABS: BASOPHILS % (AUTO) 0 % (0-10); EOSINOPHILS % (AUTO) 0 % (0-10); HEMATOCRIT 36 % (40-54); HEMOGLOBIN 11.3 g/dL (13.3-17.7); LYMPHOCYTES # (AUTO) 4.8 10^3/uL (1.0-4.0); LYMPHOCYTES % (AUTO) 20 % (12-44); MEAN CORPUSCULAR HEMOGLOBIN 29 pg (25-34); MEAN CORPUSCULAR HGB CONC 31 g/dL (32-36); MEAN CORPUSCULAR VOLUME 94 fL (80-99); MEAN PLATELET VOLUME 9.5 fL (9.0-12.2); MONOCYTES # (AUTO) 1.6 10^3/uL (0.0-1.0); MONOCYTES % (AUTO) 7 % (0-12); NEUTROPHILS # (AUTO) 16.9 10^3/uL (1.8-7.8); NEUTROPHILS % (AUTO) 71 % (42-75); PLATELET COUNT 183 10^3/uL (130-400); WHITE BLOOD COUNT 23.6 10^3/uL (4.3-11.0)
[2020-04-13 07:59] LABS: ALBUMIN 3.1 GM/DL (3.2-4.5); BILIRUBIN,TOTAL 2.9 MG/DL (0.1-1.0); CALCIUM 8.5 MG/DL (8.5-10.1); CREATININE SERUM 1.54 MG/DL (0.60-1.30); TOTAL PROTEIN 5.3 GM/DL (6.4-8.2)
[2020-04-13] MEDS ORDERED: cefTRIAXone 1,000 MG/SWFI 10 ML IV PUSH IV SCH ×2 (09:00)
--- NOTE | 2020-04-13 10:24 | Progress Note - Surgery ---
NAGI BHATT MED STUDENT 04/13/20 1024: Subjective Date Seen by a Provider: Apr 13, 2020 Time Seen by a Provider: 08:45 Subjective/Events-last exam Pt seen and examined, NAD. Pt is scheduled for lap cholecystectomy this morning and had questions regarding when he could go home. No complaints of chest pain, SOB, abd pain, N/V; he states he is feeling better than yesterday. Review of Systems HEENT: No Head Aches Pulmonary: No Dyspnea Cardiovascular: No: Chest Pain, Palpitations, Lt Headedness Gastrointestinal: No: Nausea, Vomiting, Abdominal Pain Focused Exam Respiratory: Chest Non Tender, Lungs Clear, Normal Breath Sounds, No Accessory Muscle Use, No Respiratory Distress Cardiovascular: Regular Rate, Rhythm, No JVD, No Murmur Skin: normal color, warm/dry Objective Exam Vital Signs Date Time Temp Pulse Resp B/P (MAP) Pulse Ox O2 Delivery O2 Flow Rate FiO2 04/13/20 08:00 94 Room Air 04/13/20 04:05 35.6 63 16 131/59 (83) 94 Room Air 04/13/20 00:00 36.8 70 17 114/54 (74) 94 Room Air 04/12/20 20:58 94 Room Air 04/12/20 20:00 36.8 74 18 128/65 (86) 92 Room Air 04/12/20 17:00 Room Air 04/12/20 15:49 36.6 69 18 120/40 98 Room Air 04/12/20 15:28 60 16 125/93 95 04/12/20 11:45 36.8 71 16 137/103 (114) 97 I & O 04/13/20 07:00 Intake Total 490 ml Output Total 175 ml Balance 315 ml Capillary Refill : Less Than 3 Seconds General Appearance: No Apparent Distress, Obese HEENT: Moist Mucous Membranes (dry oral mucosa), Scleral Icterus (L), Scleral Icterus (R) Respiratory: Chest Non Tender, Lungs Clear, Normal Breath Sounds, No Accessory Muscle Use, No Respiratory Distress Cardiovascular: Regular Rate, Rhythm, No Murmur Gastrointestinal: normal bowel sounds, non tender, soft Neurologic/Psychiatric: Alert, Oriented x3, Normal Mood/Affect Skin: Warm/Dry, Jaundice Results Lab Laboratory Tests 04/12/20 11:30: White Blood Count 18.2H, Red Blood Count 4.24L, Hemoglobin 12.7L, Hematocrit 41, Mean Corpuscular Volume 96, Mean Corpuscular Hemoglobin 30, Mean Corpuscular Hemoglobin Concent 31L, Red Cell Distribution Width 13.5, Platelet Count 203, Mean Platelet Volume 9.5, Immature Granulocyte % (Auto) 0, Neutrophils (%) (Aut o) 76H, Lymphocytes (%) (Auto) 16, Monocytes (%) (Auto) 8, Eosinophils (%) (Auto) 0, Basophils (%) (Auto) 0, Neutrophils # (Auto) 13.8H, Lymphocytes # (Auto) 2.9, Monocytes # (Auto) 1.4H, Eosinophils # (Auto) 0.0, Basophils # (Auto) 0.0, Immature Granulocyte # (Auto) 0.1, Neutrophils % (Manual) 75, Lymphocytes % (Manual) 17, Monocytes % (Manual) 8, Poikilocytosis P, Stomatocytes SLIGHT, Blood Morphology Comment NA, Sodium Level 140, Potassium Level 4.5, Chloride Level 104, Carbon Dioxide Level 22, Anion Gap 14, Blood Urea Nitrogen 30H, Creatinine 1.72H, Estimat Glomerular Filtration Rate 38, BUN/Creatinine Ratio 17, Glucose Level 163H, Calcium Level 8.9, Corrected Calcium 9.1, Total Bilirubin 3.1H, Aspartate Amino Transf (AST/SGOT) 76H, Alanine Aminotransferase (ALT/SGPT) 112H, Alkaline Phosphatase 156H, Total Pro tein 7.0, Albumin 3.7, Lipase 21 04/12/20 12:04: Coronavirus 2019 ([facility]) Negative 04/13/20 06:55: White Blood Count 23.6H, Red Blood Count 3.84L, Hemoglobin 11.3L, Hematocrit 36L , Mean Corpuscular Volume 94, Mean Corpuscular Hemoglobin 29, Mean Corpuscular Hemoglobin Concent 31L, Red Cell Distribution Width 13.7, Platelet Count 183, Mean Platelet Volume 9.5, Immature Granulocyte % (Auto) 2, Neutrophils (%) (Auto) 71, Lymphocytes (%) (Auto) 20, Monocytes (%) (Auto) 7, Eosinophils (%) (Auto) 0, Basophils (%) (Auto) 0, Neutrophils # (Auto) 16.9H, Lymphocytes # (Auto) 4.8H, Monocytes # (Auto) 1.6H, Eosinophils # (Auto) 0.0, Basophils # (Auto) 0.0, Immature Granulocyte # (Auto) 0.4H, Sodium Level 141, Potassium Level 4.0, Chloride Level 102, Carbon Dioxide Level 27, Anion Gap 12, Blood Urea Nitrogen 30H, Creatinine 1.54H, Estimat Glomerular Filtration Rate 44, BUN/Creatinine Ratio 19, Glucose Level 116H, Calcium Level 8.5, Corrected Calcium 9.2, Total Bilirubin 2.9H, Aspartate Amino Transf (AST/SGOT) 37H, Alanine Aminotransferase (ALT/SGPT) 77H, Alkaline Phosphatase 105, Total Protein 5.3L, Albumin 3.1L Assessment/Plan Assessment/Plan Assessment/Plan Acute Cholecystitis with Cholelithiasis - cholecystectomy today Hyperbilirubinemia and elevate LFT's Leukocytosis - worse today, 23.6 intermediate Anticoagulation Chronic Renal Failure Scheduled for laparoscopic cholecystectomy today. Pt's abd pain has improved and is nontender this morning, no complaints of N/V/chest pain/SOB. Cr improved from 1.72 to 1.54. Clinical Quality Measures DVT/VTE Risk/Contraindication: Risk Factor Score Per Nursin RFS Level Per Nursing on Admit: 4+=Very High NICHOLAS COLE DO 04/13/20 1343: Subjective Time Seen by a Provider: 11:16 Subjective/Events-last exam Pt seen and examined, states abdominal pain is ok; ready for surgery. Review of Systems HEENT: No Head Aches Pulmonary: No Dyspnea Cardiovascular: No: Chest Pain, Palpitations Gastrointestinal: No: Nausea, Vomiting, Abdominal Pain Objective Exam General Appearance: No Apparent Distress HEENT: Scleral Icterus (L), Scleral Icterus (R) Respiratory: Lungs Clear, Normal Breath Sounds, No Accessory Muscle Use, No Respiratory Distress Cardiovascular: Regular Rate, Rhythm, No Murmur Gastrointestinal: soft, tenderness (with deep palpation, RUQ) Assessment/Plan Assessment/Plan Assessment/Plan Plan to OR Supervisory-Addendum Brief Verification & Attestation Participated in pt care: history, MDM, physical Personally performed: exam, history, MDM Care discussed with: Medical Student Procedures: n/a Verification and Attestation of Medical Student E/M Service A medical student performed and documented this service. I then reviewed and verified all information documented by the medical student and made modifications to such information, when appropriate. I personally performed a physical exam, medical decision making and then discussed any differences between the notes and made revisions as necessary to create one note. Nicholas Cole , 04/13/20 , 13:43 NAGI BHATT MED STUDENT Apr 13, 2020 10:24 NICHOLAS COEL DO Apr 13, 2020 13:43
[2020-04-13] MEDS ORDERED: SEVOFLURANE (ULTANE) 15 ML INHAL SOLN ONE ×9 (10:26→13:30)
[2020-04-13] MEDS ORDERED: ONDANSETRON 4 MG/2 ML (SDV) Z0FRAN ONE (10:26)
[2020-04-13] MEDS ORDERED: fentaNYL INJECTION 100 MCG/2 ML AMP ONE (10:26)
[2020-04-13] MEDS ORDERED: LIDOCAINE PF 2% 5 ML (XYLOCAINE) VIAL ONE (10:26)
[2020-04-13] MEDS ORDERED: proPOfol 200 MG/20 ML (DIPRIVAN) VIAL IV ONE (10:26)
[2020-04-13] MEDS ORDERED: LIDOCAINE/EPI 1%-1:100,000 (XYLOCAINE) 20ML ONE (10:35)
--- NOTE | 2020-04-13 11:08 | NUR ---
Patient taken for procedure at this time.
[2020-04-13] MEDS: LACTATED RINGERS 1,000 ML IV PRN ×2 (11:10→12:22)
[2020-04-13] MEDS ORDERED: morphine INJ 10 MG/ML 1ML (SYR OR VIAL) ONE (11:48)
[2020-04-13] MEDS: IOPAMIDOL 61% 30 ML (ISOVUE 300) VIAL ONE ×2 (12:20→13:35)
[2020-04-13] MEDS ORDERED: ROCURONIUM 10 MG/ML 5 ML SYRINGE IV ONE (12:58)
[2020-04-13] MEDS ORDERED: GLYCOPYRROLATE 0.2 MG/ML (ROBINUL) 2 ML VIAL ONE (13:42)
[2020-04-13] MEDS ORDERED: NEOSTIGMINE 3 MG/3 ML VIAL ONE (13:42)
--- NOTE | 2020-04-13 13:45 | Progress Note-Post Operative ---
Post-Operative Progess Note Surgeon (s)/Loom Technician (s) Surgeon ANA COLE DO Loom Technician: Rohini Pre-Operative Diagnosis Acute Kecia/kecia Post-Operative Diagnosis Same plus necrotic GB Choledochalithiasis with obstruction ??Fistula in CBD vs Cystic duct Procedure & Operative Findings Date of Procedure 04/13/20 Procedure Performed/Findings PROCEDURE: Laparoscopic cholecystectomy with intraoperative cholangiogram. Anesthesia Type GET Estimated Blood Loss Estimated blood loss (mL): less than 20ml Specimens/Packing Specimens Removed GB and contents ANA COLE DO Apr 13, 2020 13:45
--- NOTE | 2020-04-13 13:55 | Diagnostic Imaging Report ---
Intraoperative cholangiogram. COMPARISON: 04/11/2020. Findings and impression: A total 31 seconds fluoroscopy time was utilized. Provided cine images show cannulation of the residual cystic duct with contrast filling the common bile duct and there is some spillage into the 2nd portion of the duodenum. There is also some extraluminal spillage from the cystic duct likely due to incomplete seal of the catheter. No appreciable filling defects. Please see procedure report for complete details. Dictated by: Dictated on workstation # [id number]
--- NOTE | 2020-04-13 14:28 | NUR ---
1303: Notified by warehouse driver at this time that patient would be recovered by show jumping instructor in room and then transfered to [facility] via ambulance. 1330: Report called to Davida RN at [facility], all questions answered, and call call back number left for any further questions. 1400: Patient arrived to room from procedure at this time. pelletizer operator Betty at bedside monitoring patient. 1408: [facility] called to set up transportation. 1415: Call placed to patient's at this time to inform her of transfer. All questions answered to the best of the RN's ability. Patient's given room number at [facility] as well as a number to call and the name of the RN that would be assuming care of patient. This RN will update when EMS arrives to transport patient. 1418: Dr. Zamora given number to contact patient's son Jim.
--- NOTE | 2020-04-13 15:09 | NUR ---
1500:EMS here to transport patient to [place]. Patient alert and oriented x3, VS stable, Oxy mask at 4L. Patient transfered to EMS cart without difficulty. Jo Ann and RN at [facility] notified of patient's departure.
--- NOTE | 2020-04-13 19:45 | Discharge Inst-Surgical ---
Discharge Inst-Surgical Depart Medication/Instructions New, Converted or Re-Newed RX: Other Patient Instructions Follow up Appt: Make appointment for 1 week. [phone] Instructions: No lifting greater than 20 pounds. No strenuous activity. May shower in 24 hours, no tub bath or soaking. Use incentive spirometer at home as directed. No Smoking Skin/Wound Care: May remove bandages in am. You need to leave the Dermabond on incision it will fall off on it's own. Symptoms to Report: Appetite Changes, Extremity Discoloration, Numbness/Tingling, Swelling Increased, Bleeding Excessive, Eyesight Changes, Pain Increased, Urine Color Change, Constipation(Persistent), Fever over 101 degree F, Pain/Pressure in chest, Urinating Difficulty, Cough Up/Vomit Blood, Heart Beat Irreg/Pounding, Pain/Pressure in jaw, Cramps in feet or legs, Lightheadedness, Pain/Pressure in shoulder, Diarrhea(Persistent), Memory Changes Suddenly, Questions/Concerns, Weight gain consecutive days, Dizziness/Fainting, Nausea/Vomiting, Shortness of Breath, Weight gain over 2 pounds If questions or concerns contact your physician Or seek help at emergency department. Activity Activity as Tolerated: Yes Activity Instructions: Avoid Stress to Incision Driving Instructions: No Driving/Refer to Dr. Moran Discharge Diet: Avoid Fatty Foods, Low Fat/Low Cholesterol Diet After 24 Hours: Clear Liquid if Nauseous If Any Problems/Questions/Issu: Contact Your Physician, Go to Emergency Room Skin/Wound Care Infection Signs and Symptoms: Increased Redness, Foul Odor of Wound, Increased Drainage, Skin Itchy or Has a Rash, Increased Swelling, Temperature Above 101 F Wound Care Comment: ALIREZA drain care Bathing Instructions: Shower Stitches/Lauren/Dermabond Dis: Isiond ANA COLE DO Apr 13, 2020 19:45
--- NOTE | 2020-04-14 02:02 | OPERATIVE REPORT ---
DATE OF SERVICE: 04/13/2020 PREOPERATIVE DIAGNOSIS: Acute cholecystitis, cholelithiasis. POSTOPERATIVE DIAGNOSES: Necrotic gallbladder with choledocholithiasis and obstruction as well as necrosis of either the common bile duct or the cystic duct. He also had anticoagulation leukocytosis, chronic renal failure and elevated bilirubin levels. PROCEDURE: Laparoscopic cholecystectomy with intraoperative cholangiogram. SURGEON: Ana Cole DO VISCOSITY INSPECTOR: Gurjit Nova DO ANESTHESIA: General endotracheal tube. SPECIMEN: Gallbladder and contents. BLOOD LOSS: Less than 20 mL FLUIDS: Per anesthesia. POSTOPERATIVE CONDITION: Stable. INDICATION FOR PROCEDURE: The patient is an 79-year-old male who had a right upper quadrant pain, had a distended gallbladder, stones in the gallbladder seen and then he had rising bilirubin and elevated leukocytosis, needed to have his gallbladder removed. FINDINGS: The patient had an erosion through either the cystic duct or the common bile duct, it was hard to determine. He also had choledocholithiasis with obstruction and necrotic gallbladder as well. PROCEDURE NOTE: After informed consent was obtained, the patient was brought to the operating room, placed on the operating table in supine position, sterilely prepped and draped in normal fashion. Local lidocaine was used to infiltrate the skin. Above the umbilicus, I made an incision with #11 blade, carried down through the skin and subcutaneous tissue, then deepened down to subcutaneous tissue with Bovie electrocautery down to the fascia. Fascia was incised with Bovie electrocautery, bluntly entered the abdomen, swept a finger around, placed 0 Vicryl [id number] suture, then placed limited trocar port under direct visualization, created pneumoperitoneum and then placed 3 more ports in normal fashion using local lidocaine. A #11 blade for stab incision and VersaStep system, all done under direct visualization, one subxiphoid and 2 in the right upper quadrant. Upon entry, noted that the omentum was stuck over the liver and could see what looked like fibrinous or purulent fluid, took a picture of this and then carefully started peeling back the omentum off of the gallbladder. The gallbladder was found to be necrotic, took a picture of this, able to grasp the gallbladder. This caused a hole in the gallbladder and able to suction this up and then lifted the gallbladder, took it superiorly and then pulled the Rodriguez's pouch. Tried to pull up and out and found what looked like area of bile staining. At this point, then carefully started trying to dissect out cystic duct and cystic artery. Encountered the cystic artery, elected to place 2 clips proximally and 1 distally and cut this and then started dissecting out cystic duct. Able to see the cystic duct, which went right into this area of bile staining and turned out to be a hole, had a stone came out of this opening, placed 3 clips on the cystic duct above this and then placed a cholangiogram catheter, shot cholangiogram, got spillage of bile into the common bile duct going down, but stopped and did not go into the small intestine and there were a few stones in there. It did go up into the common hepatic. It was very hard to determine. This looked like it may have been an erosion from the common bile duct and so at this point elected to try and place a T-tube into this area, had already called [facility] to try and get him transferred because he will need an ERCP and stenting. Stenting would help allow the body to heal this erosion. It took a good 30 to 45 minutes just to start this to dissect out the gallbladder. We then spent another 30 to [address] a T-tube. Unfortunately, not able to place a T-tube. Could not get it to go up and down the common bile and common hepatic ducts. Elected to shoot another cholangiogram. Again, I was able to get bile to go up and down the common duct, did not extravasate. At this point, elected to stop trying to place a T-tube. We did not want to damage the common bile duct and so placed a 19-Burkinan Mahad drain, brought out through the most lateral right upper quadrant incision, and sutured this in place with 2-0 nylon. Then, continued to take the gallbladder off the bed of the liver. This took another 30 to 45 minutes. It was very necrotic. There was a lot of edema, had a hard time because the smoke kept filling up, so we had to suction to smoke out. There was a little bit of bleeding from the bed of the liver, but able to control this. I then placed a bag in the abdomen, placed the gallbladder in the bag and then removed through supraumbilical incision. Placed the port back into the abdomen, copiously irrigated with normal saline. There was no bleeding from the bed of liver. Picture was taken. Picture was taken of the 19-Burkinan Mahad drain the gallbladder fossa as well as under the liver. At this point, then placed the patient supine. He had been reverse Trendelenburg, rotated left and removed all ports under direct visualization and allowed the pneumoperitoneum to escape. Closed the supraumbilical incision with 0 Vicryl [id number] suture, then closed the two 5 mm incisions with a single interrupted 4-0 undyed Monocryl subcuticular stitch. We closed the supraumbilical incision with 4 interrupted 4-0 undyed Vicryl subcuticular stitches. Area was cleaned and dried and Dermabond was used to close the incisions. Dr. Nova assisted by helping to make incisions, close incisions, identify anatomy and hold anatomy out of the way. Job ID: [id number] DocumentID: [id number] Dictated Date: 04/13/2020 17:41:54 Editor Publications Date: 04/14/2020 02:01:57 Dictated By: ANA COLE DO
--- NOTE | 2020-04-14 07:16 | Anesthesia-General Post-Op ---
General Post Op Complications Complications None Follow Up Care/Instructions Patient Instructions None needed. Anesthesia/Patient Condition Patient Condition Chart Reviewed. No apparent adverse anesthesia problems. DOREEN,LILIA Paul CRNA Apr 14, 2020 07:16
== END 2020-04-13 15:00 | disposition short-term general hospital (02) | DRG 418 ==
LOC: EDUNIT# 11:07 → ER 11:08 → 4TH 13:05
PROVIDERS: ADMIT Surgery; ATTEND Surgery
PROC: BF13YZZ Fluoroscopy of Gallbladder and Bile Ducts using Other Contrast (ICD-10-PCS; 2020-04-13)
PROC: 0FT44ZZ Resection of Gallbladder, Percutaneous Endoscopic Approach (ICD-10-PCS; principal; 2020-04-13 11:26)
DX: K80.01 Calculus of gallbladder with acute cholecystitis with obstruction (principal); K83.3 Fistula of bile duct; I25.10 Atherosclerotic heart disease of native coronary artery without angina pectoris; N40.0 Benign prostatic hyperplasia without lower urinary tract symptoms; N18.9 Chronic kidney disease, unspecified; I12.9 Hypertensive chronic kidney disease with stage 1 through stage 4 chronic kidney disease, or unspecified chronic kidney disease; M19.90 Unspecified osteoarthritis, unspecified site; E78.5 Hyperlipidemia, unspecified; I48.91 Unspecified atrial fibrillation; Z95.1 Presence of aortocoronary bypass graft; Z95.5 Presence of coronary angioplasty implant and graft; Z95.0 Presence of cardiac pacemaker; Z79.82 Long term (current) use of aspirin; Z79.899 Other long term (current) drug therapy; Z79.01 Long term (current) use of anticoagulants
CPT/HCPCS: 36415; 76000; 80053; 83690; 85007; 85025; 85027; 87081; 87635

== ENCOUNTER 2021-09-09 09:09 | Emergency (ER) | payer MEDICARE ==
[~2021-09-09] VITALS: Ht 177 cm; Wt 117.0 kg
[2021-09-09] MEDS ORDERED: oxyCODONE/APAP 10/325MG (PERCOCET 10) TABLET PO ONE (10:00)
--- NOTE | 2021-09-09 10:00 | ED Hip Pain/Injury ---
General Chief Complaint: Hip/Pelvic Problems Stated Complaint: R HIP PAIN Nursing Triage Note: PT TO RM 6 PT CO OF SEVERE R HIP 10/10 PAIN FOR APPROX 2-3 DAYS. DENIES INJURY Source: patient Exam Limitations: no limitations History of Present Illness Date Seen by Provider: September 09, 2021 Time Seen by Provider: 09:50 Initial Comments Patient is an 80-year-old male who presents to the emergency room with a chief complaint of right thigh pain. Onset about 2 to 3 days ago. He denies any injury such as trip fall etc. He has been favoring his right knee as he is scheduled to have a right knee replacement in the next few months. He has been using a crutch to walk. He denies any numbness to the thigh. He carries his wallet on his left hip pocket. No rashes, joint pain or swelling. No fevers or chills. When he moves the right leg he has extreme discomfort in the thigh. He cannot find a position of comfort. He did take a Percocet 10 mg at about 445 this morning that he had leftover from prior surgery and it did not help. He is also taking arthritis strength Tylenol without relief. No swelling in the leg. He has history of A. fib chronically anticoagulated on Eliquis. No numbness weakness or tingling in the leg. He denies bowel or bladder incontinence. No saddle anesthesia. Has never had anything like this before. Both hips have been replaced. All other review of systems reviewed and negative except as stated. Allergies and Home Medications Allergies Coded Allergies: warfarin sodium (Verified Allergy, Mild, RASH, 10/04/17) amiodarone (Verified Adverse Reaction, Unknown, itching skin, 04/11/20) Patient Home Medication List Home Medication List Reviewed: Yes Aspirin (Aspirin 81 Mg Chew Tab) 81 Mg Chew, 81 MG PO DAILY, (Reported) Entered as Reported by: REY PACHECO on 06/04/11 0436 Atorvastatin Calcium (Atorvastatin Calcium) 20 Mg Tablet, 20 MG PO HS, (Reported) Entered as Reported by: NACHO CABAN on 10/04/17 1428 Clopidogrel Bisulfate (Plavix) 75 Mg Tablet, 75 MG PO DAILY, (Reported) Entered as Reported by: NACHO CABAN on 10/04/17 1428 Doxazosin Mesylate (Cardura) 4 Mg Tablet, 2 MG PO HS Prescribed by: NARDA CAAL on 10/05/17 1013 Dutasteride (Avodart) 0.5 Mg Cap, 0.5 MG PO HS, (Reported) Entered as Reported by: NACHO CABAN on 10/04/17 1428 Gluc HCl/Csa/Khadar Hy/Hyalur AC (Glucosamine Chondroitin Cap) 1 Each Capsule, 1 EACH PO BID, (Reported) Entered as Reported by: NACHO CABAN on 10/04/17 1428 Hydrocodone/Acetaminophen (Hydrocodone-Acetamin 5-325 mg) 1 Each Tablet, 1 EACH PO Q6H PRN for PAIN-BREAKTHROUGH Prescribed by: KANE SANDOVAL on 04/12/20 0026 Losartan Potassium (Losartan Potassium) 25 Mg Tablet, 25 MG PO DAILY, (Reported) Entered as Reported by: NARDA CAAL on 10/05/17 1011 Losartan Potassium (Losartan Potassium) 50 Mg Tablet, 50 MG PO HS, (Reported) Entered as Reported by: NARDA CAAL on 10/05/17 1012 Multivitamin (Multi-Vitamin Daily) 1 Each Tablet, 1 EACH PO DAILY, (Reported) Entered as Reported by: NACHO CABAN on 10/04/17 1428 Ondansetron (Ondansetron Odt) 4 Mg Tab.rapdis, 4 MG PO Q6H PRN for NAUSEA/VOMITING Prescribed by: KANE SANDOVAL on 04/12/20 0025 Oxycodone HCl/Acetaminophen (Percocet 7.5-325 mg Tablet) 1 Each Tablet, 1 TAB PO Q6H PRN for PAIN-MODERATE Prescribed by: ALEXSANDRA PLUMMER on 09/09/21 1133 Review of Systems Constitutional: see HPI EENTM: no symptoms reported Respiratory: no symptoms reported Cardiovascular: no symptoms reported Gastrointestinal: no symptoms reported Genitourinary: no symptoms reported Musculoskeletal: muscle pain (right anterior thigh) Skin: no symptoms reported Psychiatric/Neurological: No Symptoms Reported Past Gtciowt-Ejoveq-Nqiuac Hx Immunizations Up To Date Tetanus Booster (TDap): Unknown Seasonal Allergies Seasonal Allergies: No Past Medical History Surgeries: Yes (pacemaker, abdominal hernia surgery) Abdominal, CABG, Coronary Stent, Orthopedic, Pacemaker Respiratory: No 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) Coronary Artery Disease, Hypertension Neurological: No Genitourinary: Yes Benign Prostatic Hyperpl Gastrointestinal: No Musculoskeletal: Yes Arthritis Endocrine: No HEENT: No Cancer: No Psychosocial: No Integumentary: No Family Medical History Colon cancer 19 FATHER (unknown cancer ) 19 MOTHER (unknown cancer) FH: heart disease Heart di Hypertension G8 BROTHER Heart Disease, Cancer, Hypertension Physical Exam Vital Signs Vital Signs - First Documented 09/09/21 09:25 Temp 35.8 Pulse 82 Resp 18 B/P (MAP) 152/72 (98) Pulse Ox 92 Capillary Refill : Less Than 3 Seconds Height, Weight, BMI Height: 5'10.00" Weight: 263lbs. 5.0oz. 119.814907pt; 37.00 BMI Method:Stated General Appearance: No Apparent Distress, WD/WN HEENT: PERRL/EOMI Neck: Normal Inspection Cardiovascular: Regular Rate, Rhythm, Normal Peripheral Pulses Respiratory: Lungs Clear, Normal Breath Sounds, No Accessory Muscle Use, No Respiratory Distress Gastrointestinal: Non Tender, Soft Back: Normal Inspection Extremity: Normal Inspection, Normal Range of Motion, No Calf Tenderness, Other (no reproducible right thigh pain; although he does have discomfort when he rolls onto that thigh - he is more comfortable with right leg crossed over left; no overlying erythema. no rash. distal NVI. normal ROM. 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 I recommended that he try qsiz-ikn-jdwhmld lidocaine patches as well as muscle relaxers. He says he has some tizanidine at home that he will try. I have advised him to follow-up with Dr. Robbins, monitor his symptoms for rash, swelling, weakness. He is not able to take ibuprofen secondary to his anticoagulation on Eliquis. He has no secondary findings of infection such as erythema at this point or rash or crepitance to the skin. There is no lower extremity swelling. Motor and sensory function is intact. X-ray is unremarkable. Conservative care at this time with strict return precautions. He verbalized understanding all questions are sought and answered Departure Impression Primary Impression: Myalgia Disposition: HOME, SELF-CARE Condition: Stable Departure-Patient Inst. Decision time for Depature: 11:09 Referrals: JENNIFER ROBBINS DO (PCP/Family) Primary Care Physician Patient Instructions: Muscle and Bone Pain (DC) Add. Discharge Instructions: Apply moist heat to the area to help relieve pain. You can try scyk-qku-wddlzxr muscle rubs such as icy hot or lidocaine patches or Biofreeze. You can take your pain medication every 4-6 hours as needed. Keep in mind this medication can cause constipation. Try your tizanidine, follow instructions on the bottle. This can cause dry mouth. Return to the emergency department if you develop a rash over the area especially with fever, numbness or weakness in the leg or any other emergent concerning symptoms. Please call Dr. Robbins's office today for a follow-up appointment by Tuesday. Scripts Oxycodone HCl/Acetaminophen (Percocet 7.5-325 mg Tablet) 1 Each Tablet 1 TAB PO Q6H PRN for PAIN-MODERATE MDD 4 TABS, #12 TAB Prov: ALEXSANDRA PLUMMER MD 09/09/21 ALEXSANDRA PLUMMER MD September 09, 2021 09:59
--- NOTE | 2021-09-09 10:34 | Diagnostic Imaging Report ---
INDICATION: Right hip pain. EXAMINATION: Right femur, 4 views. FINDINGS: There is a total arthroplasty of the right hip. The femoral and acetabular components are in good position. No evidence of hardware loosening. There are no fractures. IMPRESSION: Normal appearing arthroplasty right hip. Dictated by: Dictated on workstation # [id number]
[2021-09-09 11:20] VITALS: BP 132/71
[2021-09-09] MEDS ORDERED: OXYC1TAB16 PO (11:33)
== END 2021-09-09 11:22 | disposition home or self-care (01) ==
LOC: EDUNIT# 09:09 → ER 09:10
DX: M79.10 Myalgia, unspecified site (principal); I48.20 Chronic atrial fibrillation, unspecified; Z79.01 Long term (current) use of anticoagulants
CPT/HCPCS: 73552

== ENCOUNTER → 2022-02-02 | Outpatient (CLI) | payer MEDICARE ==
[~2022-02-02] MED LIST changes: +OXYC1TAB16 PO
--- NOTE | 2022-02-02 16:11 | Diagnostic Imaging Report ---
PROCEDURE: US Bilateral lower extremity arterial. TECHNIQUE: Multiple real-time grayscale images are obtained through both lower extremity arterial systems with color Doppler imaging and color Doppler spectral analysis. INDICATION: Peripheral arterial disease. Difficulty walking. COMPARISON: None FINDINGS: Diminished peak systolic velocities are identified within the bilateral dorsalis pedis arteries, but these vessels are patent. Additionally, there is normal triphasic waveform seen throughout. There is mild scattered echogenic atherosclerotic disease, but by NASCET criteria, there is no focal significant stenosis. IMPRESSION: Probable small vessel disease of the dorsalis pedis arteries, but no focal hemodynamically significant stenosis is seen on either side. Dictated by: Dictated on workstation # [id number]
== END ==
LOC: RAD 09:00
PROVIDERS: ATTEND Family Medicine
DX: I73.9 Peripheral vascular disease, unspecified (principal)
CPT/HCPCS: 93925

== ENCOUNTER → 2022-10-13 | Outpatient (CLI) | payer MEDICARE ==
[~2022-10-13] MED LIST changes: +CLOP-31 PO; -CLOP75TA69 PO; -DOXA4TAB PO; +DOXA4TAB96 PO; -LOSA100T57 PO; +LOSA100T58 PO
--- NOTE | 2022-10-13 14:06 | Diagnostic Imaging Report ---
INDICATION: SHORT OF BREATH CONGESTIVE HEART FAILURE COMPARISON: 04/11/2020 FINDINGS: Frontal and lateral views of the chest demonstrate mild cardiomegaly. Pulmonary vasculature is within normal limits. Left-sided AICD and sternotomy wires are noted. The lungs are clear. There are no signs of infiltrate, pleural effusions or pneumothoraces. The visualized osseous structures show no acute abnormalities. IMPRESSION: 1. Redemonstration of cardiomegaly, but no evidence of failure or focal infiltrate. Dictated by: Dictated on workstation # [id number]
== END ==
LOC: RAD 13:46
PROVIDERS: ATTEND Family Medicine
DX: I51.7 Cardiomegaly (principal); I50.9 Heart failure, unspecified
CPT/HCPCS: 71046